=== PATIENT | male | born 1955 | race Caucasian/White ===

== ENCOUNTER 2018-10-09 06:31 | Observation (INO) | payer SELFPAY ==
[2018-10-09 06:58] LABS: Absolute Lymphocytes (CBC) 1.7 K/uL (0.7-4.9); Absolute Monocytes 1.4 K/uL (0.1-1.3); Absolute Neutrophil 13.9 K/uL (1.8-8.0); Basophils % 0.2 % (0-1.3); Eosinophils % 0.3 % (0-4.4); Lymphocytes % 9.8 % (15.3-44.8); MPV 10.3 fL (7.6-11.3); RBC Red Blood Cell Count 2.74 M/uL (4.33-5.43)
[2018-10-09 06:59] LABS: Protime INR 1.1
[2018-10-09] MEDS ORDERED: NA CHLORIDE 0.9% 1,000 ML ONE (07:16)
[2018-10-09 07:18] LABS: ALT/SGPT 14 U/L (12-78); AST/SGOT 23 U/L (15-37); Albumin 2.6 g/dL (3.4-5.0); Alkaline Phosphatase 88 U/L (45-117); BUN Blood Urea Nitrogen 21 mg/dL (7-18); Bicarbonate 25 mmol/L (21-32); Bilirubin Direct < 0.1 mg/dL (0-0.2); Bilirubin Total 0.1 mg/dL (0.2-1.0); Glucose Level 118 mg/dL (74-106); NT PRO-BNP 373 pg/mL (<125); Potassium 3.7 mmol/L (3.5-5.1); Protein, Total 5.7 g/dL (6.4-8.2); Sodium Level 142 mmol/L (136-145)
[2018-10-09 07:20] LABS: Troponin (Emerg Dept Use Only) 0.96 ng/mL (0.0-0.045)
--- NOTE | 2018-10-09 08:04 | EKG ---
Test Date: 2018-10-09 Test Time: 06:51:34 Highway Maintenance Technician: [id number] MEASUREMENT RESULTS: Intervals: Rate: 69 MI: 122 QRSD: 92 QT: 438 QTc: 469 [place]: P: 74 MI: 122 QRS: 81 T: -45 INTERPRETIVE STATEMENTS: Normal sinus rhythm Marked ST depression consider subendocardial injury Minimal voltage for left ventricular hypertrophy Abnormal ECG Compared to ECG 10/27/2015 10:28:06 ST depression is now present Sinus bradycardia no longer present Electronically Signed On 10-09-18 08:04:04 CDT by Wero Sweeney
--- NOTE | 2018-10-09 08:11 | EDPHYS ---
Physician Documentation [facility] Name: Blue Almazan Age: 62 yrs Sex: Male : 1955 Arrival Date: 10/09/2018 Time: 06:35 Bed 4 Private MD: ED Physician Jak Tapia HPI: 10/09 07:06 This 62 yrs old Male presents to ER via EMS with complaints of weakness . kb 07:06 The patient presents with generalized weakness. Onset: The symptoms/episode kb began/occurred 1 week(s) ago. Context: occurred at home. Modifying factors: The symptoms are alleviated by nothing, the symptoms are aggravated by standing up, changing position. Associated signs and symptoms: Pertinent positives: headache, nausea. Severity of symptoms: At their worst the symptoms were moderate in the emergency department the symptoms are unchanged. Patient's baseline: Neuro: alert and fully oriented, Motor: no deficits, Ambulation: walks without assistance, Speech: normal. The patient has experienced similar episodes in the past, a few times. The patient has not recently seen a physician. Pt reports weakness with intermittent dizziness for a week. Went to work this morning and didn't feel like he could do it today so he drove back home and called 911. Reports history of anemia and blood transfusions in the past. Denies bleeding. Historical: - Allergies: 06:40 Ibuprofen; fc - Home Meds: 06:40 Methadone 100 mg Oral once daily [Active]; fc - PMHx: 06:40 Anemia; drug addiction; fc - PSHx: 06:40 None; fc - Immunization history:: Last tetanus immunization: unknown. - Social history:: Smoking status: Patient uses tobacco products, smokes one pack cigarettes per day. Patient/guardian denies using alcohol, street drugs. - Ebola Screening: : Patient negative for fever greater than or equal to 101.5 degrees Fahrenheit, and additional compatible Ebola Virus Disease symptoms Patient denies exposure to infectious person Patient denies travel to an Ebola-affected area in the 21 days before illness onset. ROS: 07:11 Constitutional: Negative for fever, chills, and weight loss, ENT: Negative for injury, kb pain, and discharge, Neck: Negative for injury, pain, and swelling, Respiratory: Negative for shortness of breath, cough, wheezing, and pleuritic chest pain, Back: Negative for injury and pain, MS/Extremity: Negative for injury and deformity, Skin: Negative for injury, rash, and discoloration. 07:11 Cardiovascular: Positive for chest pain, Negative for edema, orthopnea, palpitations, paroxysmal nocturnal dyspnea. 07:11 Abdomen/GI: Positive for nausea. 07:11 Neuro: Positive for dizziness, headache, weakness. Exam: 07:08 Head/Face: Normocephalic, atraumatic. ENT: Nares patent. No nasal discharge, no kb septal abnormalities noted. Tympanic membranes are normal and external auditory canals are clear. Oropharynx with no redness, swelling, or masses, exudates, or evidence of obstruction, uvula midline. Mucous membranes moist. Neck: Trachea midline, no thyromegaly or masses palpated, and no cervical lymphadenopathy. Supple, full range of motion without nuchal rigidity, or vertebral point tenderness. No Meningismus. Chest/axilla: Normal chest wall appearance and motion. Nontender with no deformity. No lesions are appreciated. Cardiovascular: Regular rate and rhythm with a normal S1 and S2. No gallops, murmurs, or rubs. Normal PMI, no JVD. No pulse deficits. Respiratory: Lungs have equal breath sounds bilaterally, clear to auscultation and percussion. No rales, rhonchi or wheezes noted. No increased work of breathing, no retractions or nasal flaring. Abdomen/GI: Soft, non-tender, with normal bowel sounds. No distension or tympany. No guarding or rebound. No evidence of tenderness throughout. Skin: Warm, dry with normal turgor. Normal color with no rashes, no lesions, and no evidence of cellulitis. MS/ Extremity: Pulses equal, no cyanosis. Neurovascular intact. Full, normal range of motion. Neuro: Awake and alert, GCS 15, oriented to person, place, time, and situation. Cranial nerves II-XII grossly intact. Motor strength 5/5 in all extremities. Sensory grossly intact. Cerebellar exam normal. Normal gait. 07:08 Constitutional: The patient appears alert, awake, pale. 07:08 ECG was reviewed by the Attending Physician. 07:43 Abdomen/GI: Rectal exam: rectal tone normal, Stool: guaiac positive, black, the exam is kb chaperoned by the nurse. Vital Signs: 06:30 BP 141 / 80; Pulse 81; Resp 18; Temp 98.1; Pulse Ox 100% ; Weight 72.57 kg; Height 5 fc ft. 8 in. (172.72 cm); Pain 4/10; 06:42 BP 144 / 67 Supine; Pulse 68; aa1 06:44 BP 155 / 109 Sitting; Pulse 68; aa1 06:46 BP 115 / 89 Standing; Pulse 78; aa1 07:30 BP 128 / 70; Pulse 68; Resp 15; Pulse Ox 100% on R/A; Pain 0/10; hb 08:00 BP 132 / 72; Pulse 70; Resp 16; Temp 98.4; Pulse Ox 100% on R/A; hb 09:00 BP 130 / 70; Pulse 71; Resp 15; Pulse Ox 100% on R/A; hb 10:00 BP 132 / 71; Pulse 68; Resp 15; Pulse Ox 100% on R/A; hb 06:30 Body Mass Index 24.33 (72.57 kg, 172.72 cm) fc MDM: 06:35 Patient medically screened. kb 07:08 Data reviewed: vital signs, nurses notes. Data interpreted: Pulse oximetry: on room air kb is 100 %. Interpretation: normal. 07:57 Counseling: I had a detailed discussion with the patient and/or guardian regarding: the kb historical points, exam findings, and any diagnostic results supporting the discharge/admit diagnosis, lab results, radiology results, the need to transfer to another facility, [facility] does not immediately have the required specialist. ED course: Transfer initiated to [facility] for GI bleed, no GI available at this facility. . 08:05 Physician consultation: Sondra Lao MD was contacted at 08:10, regarding admission, to the telemetry unit. patient's condition, and will see patient in ED, shortly. ED course: Pt refuses transfer. Pt educated that he needs to be seen by GI specialist for the bleeding. Educated that weakness, dizziness, and chest pain is all related to the GI bleeding. Pt understands and says he will follow up with Dr Schaffer, but he does not want to be transferred and he understands that he will not be seen by GI during admission. PT states "I have been losing blood for a long time. I get blood and that lasts for a year or two so I'm good. Can I just get the blood?" Discussed pt condition with Dr Lao. Agrees to admit pt for observation for transfusion and cardiac consult for elevated troponin and ekg changes. . 08:10 Physician consultation: Wero Sweeney MD in the emergency department to see patient at kb 08:10. 10/09 06:36 Order name: Basic Metabolic Panel; Complete Time: 07:22 kb 10/09 06:36 Order name: CBC with Diff; Complete Time: 07:03 kb 10/09 06:36 Order name: LFT's; Complete Time: 07:22 kb 10/09 06:36 Order name: Magnesium; Complete Time: 07:22 kb 10/09 06:36 Order name: NT PRO-BNP; Complete Time: 07:22 kb 10/09 06:36 Order name: PT-INR; Complete Time: 07:03 kb 10/09 06:36 Order name: Troponin (emerg Dept Use Only); Complete Time: 07:22 kb 10/09 06:36 Order name: XRAY Chest (1 view); Complete Time: 08:31 kb 10/09 06:36 Order name: EKG; Complete Time: 06:36 kb 10/09 06:36 Order name: Type And Screen kb 10/09 07:14 Order name: Bb Add On fc 10/09 07:15 Order name: Packed RBC Leukored -1 EDAK 10/09 06:36 Order name: Cardiac monitoring; Complete Time: 06:52 kb 10/09 06:36 Order name: EKG - Nurse/Tech; Complete Time: 06:52 kb 10/09 06:36 Order name: IV Saline Lock; Complete Time: 06:52 kb 10/09 06:36 Order name: Labs collected and sent; Complete Time: 06:52 kb 10/09 06:36 Order name: O2 Per Protocol; Complete Time: 06:52 kb 10/09 06:36 Order name: O2 Sat Monitoring; Complete Time: 06:53 kb 10/09 06:36 Order name: Orthostatics; Complete Time: 06:52 kb EC:08 Rate is 69 beats/min. Rhythm is regular, Normal Sinus Rhythm. QRS Union is Normal. MT kb interval is normal at 122 msec. QRS interval is normal at 92 msec. QT interval is normal at 438 msec. Administered Medications: 07:07 Drug: NS 0.9% 1000 ml Route: IV; Rate: 1000 ml; Site: left antecubital; hb 08:15 Follow up: Response: No adverse reaction; IV Status: Completed infusion; IV Intake: hb 1000ml 09:30 Drug: Nicotine 21 mg/24 hr 1 patches Route: Transdermal; Site: affected area; hb 10:30 Follow up: Response: No adverse reaction hb Disposition: 10/10 11:16 Co-signature as Attending Physician, Jak Tapia MD I agree with the assessment and [facility] plan of care. Disposition: 10/09/18 08:11 Hospitalization ordered by Sondra Lao for Observation. Preliminary diagnosis are Anemia, unspecified, Gastrointestinal hemorrhage, unspecified, Chest pain, unspecified, Elevated Troponin. - Bed requested for Telemetry/MedSurg (observation). - Status is Observation. hb - Condition is Stable. - Problem is new. - Symptoms are unchanged. UTI on Admission? No Signatures: Dispatcher [employer] EDMS Mariam Astudillo FNP-C FNP-Ckb Woody, Diana, RN RN dw Anderson, Corey, MD MD cha Chretien, Felicia, RN RN Asya Spring RN RN hb Corrections: (The following items were deleted from the chart) 10/09 07:16 07:06 Pt reports weakness with intermittent dizziness for a week. Went to work this [employer] morning and didn't feel like he could do it today so he drove back home and called 911. kb 07:16 07:06 Pt reports weakness with intermittent dizziness for a week. Went to work this [employer] morning and didn't feel like he could do it today so he drove back home and called 911. Reports history of anemia and blood transfusions in the past. kb 08:32 07:08 Rate is 69 beats/min. Rhythm is regular, Normal Sinus Rhythm. QRS Union is Normal. kb MT interval is normal at 122 msec. QRS interval is normal at 92 msec. QT interval is normal at 438 msec. kb 09:14 08:11 Hospitalization Ordered by Sondra Lao MD for Observation. Preliminary diagnosis dw is Anemia, unspecified; Gastrointestinal hemorrhage, unspecified; Chest pain, unspecified; Elevated Troponin. Bed requested for Telemetry/MedSurg (observation). Status is Observation. Condition is Stable. Problem is new. Symptoms are unchanged. UTI on Admission? No. kb 11:39 09:14 10/09/2018 08:11 Hospitalization Ordered by Sondra Lao MD for Observation. hb Preliminary diagnosis is Anemia, unspecified; Gastrointestinal hemorrhage, unspecified; Chest pain, unspecified; Elevated Troponin. Bed requested for Telemetry/MedSurg (observation). Status is Observation. Condition is Stable. Problem is new. Symptoms are unchanged. UTI on Admission? No. dw
--- NOTE | 2018-10-09 08:11 | ER ---
Nurse's Notes [facility] Name: Blue Almazan Age: 62 yrs Sex: Male : 1955 Arrival Date: 10/09/2018 Time: 06:35 Bed 4 Private MD: Diagnosis: Anemia, unspecified;Gastrointestinal hemorrhage, unspecified;Chest pain, unspecified;Elevated Troponin Presentation: 10/09 06:30 Presenting complaint: Patient states: that he has been having weakness on and off x 1 fc week. When he is weak he has nausea, dizziness and pounding in his head. Transition of care: patient was not received from another setting of care. Onset of symptoms was October 02, 2018. Risk Assessment: Do you want to hurt yourself or someone else? Patient reports no desire to harm self or others. Initial Sepsis Screen: Does the patient meet any 2 criteria? No. Patient's initial sepsis screen is negative. Does the patient have a suspected source of infection? No. Patient's initial sepsis screen is negative. Care prior to arrival: IV initiated. 20 GA, in the left antecubital area, Glucose check: 119. 06:30 Method Of Arrival: EMS: [facility] 06:30 Acuity: JAMMIE 3 fc Historical: - Allergies: 06:40 Ibuprofen; fc - Home Meds: 06:40 Methadone 100 mg Oral once daily [Active]; fc - PMHx: 06:40 Anemia; drug addiction; fc - PSHx: 06:40 None; fc - Immunization history:: Last tetanus immunization: unknown. - Social history:: Smoking status: Patient uses tobacco products, smokes one pack cigarettes per day. Patient/guardian denies using alcohol, street drugs. - Ebola Screening: : Patient negative for fever greater than or equal to 101.5 degrees Fahrenheit, and additional compatible Ebola Virus Disease symptoms Patient denies exposure to infectious person Patient denies travel to an Ebola-affected area in the 21 days before illness onset. Screenin:30 Abuse screen: Denies threats or abuse. Nutritional screening: No deficits noted. fc Tuberculosis screening: No symptoms or risk factors identified. Fall Risk None identified. Assessment: 06:35 General: Appears in no apparent distress. comfortable, slender, Behavior is calm, aa1 cooperative, appropriate for age, drowsy. Pain: Denies pain. Neuro: Level of Consciousness is awake, obeys commands, Oriented to person, place, time, situation, Moves all extremities. Full function Speech is normal, Facial symmetry appears normal, Pupils are PERRLA. Neuro: Reports weakness that is generalized. Cardiovascular: Heart tones S1 S2 present Rhythm is regular. Respiratory: Airway is patent Respiratory effort is even, unlabored, Respiratory pattern is regular, symmetrical. GI: No signs and/or symptoms were reported involving the gastrointestinal system. : No signs and/or symptoms were reported regarding the genitourinary system. EENT: No signs and/or symptoms were reported regarding the EENT system. Derm: Skin is intact, is healthy with good turgor, Skin is pink, warm \T\ dry. Musculoskeletal: Circulation, motion, and sensation intact. Capillary refill < 3 seconds. 07:08 Reassessment: Patient appears in no apparent distress at this time. Patient and/or hb family updated on plan of care and expected duration. Pain level reassessed. Pt is lethargic, answering questions appropriately. Denies pain/SOB. VSS. Awaiting lab results at this time. 09:30 Reassessment: FIRST UNIT PRBCS STARTED, VSS, NAD. SEE PAPER CHART FOR TRANSFUSION hb RECORD. 10:00 Reassessment: BLOOD INFUSION CONTINUES, PT DENIES SOB/PAIN/ITCHING. VSS. hb 10:25 Reassessment: REPORT CALLED TO FLOOR, AWAITING TRANSPORT AT THIS TIME. hb Vital Signs: 06:30 BP 141 / 80; Pulse 81; Resp 18; Temp 98.1; Pulse Ox 100% ; Weight 72.57 kg; Height 5 fc ft. 8 in. (172.72 cm); Pain 4/10; 06:42 BP 144 / 67 Supine; Pulse 68; aa1 06:44 BP 155 / 109 Sitting; Pulse 68; aa1 06:46 BP 115 / 89 Standing; Pulse 78; aa1 07:30 BP 128 / 70; Pulse 68; Resp 15; Pulse Ox 100% on R/A; Pain 0/10; hb 08:00 BP 132 / 72; Pulse 70; Resp 16; Temp 98.4; Pulse Ox 100% on R/A; hb 09:00 BP 130 / 70; Pulse 71; Resp 15; Pulse Ox 100% on R/A; hb 10:00 BP 132 / 71; Pulse 68; Resp 15; Pulse Ox 100% on R/A; hb 06:30 Body Mass Index 24.33 (72.57 kg, 172.72 cm) fc ED Course: 06:30 Arm band placed on Patient placed in an exam room, on a stretcher. fc 06:30 Patient has correct armband on for positive identification. Placed in gown. Bed in low fc position. Call light in reach. Side rails up X2. manager monitoring on. Pulse ox on. NIBP on. 06:30 No provider procedures requiring assistance completed. Maintain EMS IV. Dressing fc intact. Good blood return noted. Site clean \T\ dry. Gauge \T\ site: 20 gauge to left a/c. 06:35 Patient arrived in ED. kb 06:35 Mariam Astudillo FNP-C [facility]. kb 06:35 Jak Tapia MD is Attending Physician. kb 06:38 Triage completed. fc 06:40 Initial lab(s) drawn, by me, sent to lab. T\T\S collected, blood band applied to patient. aa1 07:06 Asya Bradley, EDUARDO is Primary Nurse. hb 07:17 XRAY Chest (1 view) In Process Unspecified. EDMS 08:11 Sondra Lao MD is Hospitalizing Provider. kb 11:15 Patient admitted, IV remains in place. hb Administered Medications: 07:07 Drug: NS 0.9% 1000 ml Route: IV; Rate: 1000 ml; Site: left antecubital; hb 08:15 Follow up: Response: No adverse reaction; IV Status: Completed infusion; IV Intake: hb 1000ml 09:30 Drug: Nicotine 21 mg/24 hr 1 patches Route: Transdermal; Site: affected area; hb 10:30 Follow up: Response: No adverse reaction hb Intake: 08:15 IV: 1000ml; Total: 1000ml. hb Outcome: 08:11 Decision to Hospitalize by Provider. kb 11:15 Admitted to Med/surg accompanied by nurse, via wheelchair, room 229, with chart. hb 11:15 Condition: stable 11:15 Instructed on the need for admit, Demonstrated understanding of instructions. 11:39 Patient left the ED. hb Signatures: Dispatcher [employer] EDMS Mariam Astudillo FNP-C FNP-Ckb Autenrieth, Alissa, RN RN aa1 Evonne Kothari, RN RN fc Asya Bradley, RN RN hb
--- NOTE | 2018-10-09 08:27 | RAD REPORT ---
EXAM DESCRIPTION: RAD - Chest Single View - 10/09/2018 7:17 am CLINICAL HISTORY: CHEST PAIN Chest pain. COMPARISON: CHEST SINGLE VIEW dated 07/19/2012; CHEST SINGLE VIEW dated 05/07/2008; CHEST SINGLE VIEW dated 12/16/2004 FINDINGS: Portable technique limits examination quality. The lungs are emphysematous but grossly clear. The heart is upper limit of normal in size. No displac ed fractures. IMPRESSION: COPD.
--- NOTE | 2018-10-09 09:07 | P.HP ---
Certification for Inpatient Patient admitted to: Observation With expected LOS: <2 Midnights Practitioner: I am a practitioner with admitting privileges, knowledge of patient current condition, hospital course, and medical plan of care. Services: Services provided to patient in accordance with Admission requirements found in Title 42 Section 412.3 of the Code of Federal Regulations Patient History Date of Service: 10/09/18 Reason for admission: weakness History of Present Illness: This is a 62-year-old male with history of opiate addiction, peptic ulcer disease for many years, current smoker admitted for generalized weakness. Per patient, starting this morning around 430 when he was getting ready for work, he was feeling very weak, dizzy and intermittently short of breath. He started driving to work to a 10 but did not feel well and therefore drove himself to the ER. He endorses dizziness, intermittent shortness of breath. He denies any chest pain, headache, vision changes, hematochezia, hematuria, or active bleeding anywhere else. He states that his mother has similar issue, was found to have some cancer inside her stomach. He is not sure of any more details in regards to this. He was previously seen in 2013 for same exact set of symptoms. He was evaluated by GI at that time and was recommended a EGD and colonoscopy. He states he has not followed up and has not had a recent EGD or colonoscopy. In the ER, patient was alert oriented x3, in no acute distress and was hemodynamically stable. He was found to have a hemoglobin of 6, and troponin elevated. His stool occult was positive. 2 units of PRBCs were ordered, pending at the time of my exam. At the time of my exam, he was alert oriented x3, in no acute distress and hemodynamically stable. He was admitted for acute blood loss anemia, GI bleed. Patient was recommended to be transferred to [facility] for a GI evaluation as we do not have GI on-call today. Patient refused stating that he would rather go home. He was admitted for blood transfusion and a cardiac consultation at this time. Allergies ibuprofen Allergy (Unverified 10/27/15 12:16) Unknown Home Medications: Methadone HCl [Methadone HCl*] 100 mg PO DAILY 07/19/12 Amlodipine [Norvasc*] 10 mg PO DAILY #0 tab 07/23/12 Triamterene/Hctz [Maxzide 37.5 mg-25 mg Tablet*] 1 each PO DAILY #0 tablet 07/23 - Past Medical/Surgical History Diabetic: No -: Opioid addiction -: Previous history of anemia - Family History Mother -: Cancer (GI, unsure of details) - Social History Smoking Status: Current every day smoker Smoking therapy provided: Yes (Nicotine patch) Patient receptive to therapy: No Alcohol use: No CD- Drugs: No Caffeine use: No Review of Systems 10-point ROS is otherwise unremarkable Physical Examination - Physical Exam General: Alert, In no apparent distress, Oriented x3 HEENT: Atraumatic, PERRLA, Mucous membr. moist/pink, EOMI, Sclerae nonicteric Neck: Supple, 2+ carotid pulse no bruit, No LAD, Without JVD or thyroid abnormality Respiratory: Clear to auscultation bilaterally, Normal air movement Cardiovascular: Regular rate/rhythm, Normal S1 S2 Gastrointestinal: Normal bowel sounds, No tenderness, Other (FOBT positive) Musculoskeletal: No tenderness Integumentary: No rashes Neurological: Normal gait, Normal speech, Normal strength at 5/5 x4 extr, Normal tone, Normal affect Lymphatics: No axilla or inguinal lymphadenopathy - Studies Laboratory Data (last 24 hrs) 10/09/18 06:40: PT 12.9 H, INR 1.10 10/09/18 06:40: WBC 17.0 H, Hgb 6.0 L*, Hct 20.0 L*, Plt Count 258 10/09/18 06:40: Sodium 142, Potassium 3.7, BUN 21 H, Creatinine 0.71, Glucose 118 H, Magnesium 2.0, Total Bilirubin 0.1 L, AST 23, ALT 14, Alkaline Phosphatase 88 Assessment and Plan - Problems (Diagnosis) (1) Acute blood loss anemia Current Visit: Yes Status: Acute Plan: 2 units PRBS ordered in ED, pending - 2 hr post transfusion HH recheck (2) Symptomatic anemia Current Visit: Yes Status: Acute (3) GI bleed Current Visit: Yes Status: Acute Plan: - Stool occult positive, Hx of similar episode in the past. - Patient refuses to be transferred to Wing for GI evaluation. He understands the risks of refusing this transfer. - He will need outpatient GI follow up, discussed the importance of this. Qualifiers: GI bleed type/associated pathology: unspecified gastrointestinal hemorrhage type Qualified Code(s): K92.2 - Gastrointestinal hemorrhage, unspecified (4) Elevated troponin Current Visit: Yes Status: Acute Plan: Likely secondary to Demand mismatch - Denies any chest pain at this time - Cardiology consulted, pt evaluated in ED - Trend troponins (5) Family history of GI tract cancer Current Visit: Yes Status: Acute Plan: Mother with unspecified history of GI cancer, pt unaware of further details. Discussed importance with compliance of outpatient GI (6) Current smoker Current Visit: Yes Status: Chronic Plan: Counseled on smoking cessation, 5 minutes - Nicotine patch ordered (7) Opioid abuse Current Visit: No Status: Chronic Plan: Currently on methadone, does goes to methadone clinic. He will have continued follow up upon discharge - Plan DVT prophylaxis: SCD, hold chemical AC due to GIB GI prophylaxis: Protonix, IV Diet: Heart Healthy Disposition: Patient admitted for blood transfusion, patient refused transfer to Wing for GI evaluation (No GI section maintainer today). He understand the risks and states he will follow up outpatient. Pending transfusion and post transfusion H&H check - Advance Directives Does patient have a Living Will: No Does patient have a Durable POA for Healthcare: No Time Spent Managing Pts Care (In Minutes): 55
[2018-10-09] MEDS ORDERED: NA CHLORIDE 0.9% 250 ML ONE ×2 (09:21→13:19)
[2018-10-09] MEDS ORDERED: NICOTINE 21 MG/PAT TD ONE (09:24)
[2018-10-09 12:07] VITALS: BMI 23.6
--- NOTE | 2018-10-09 14:04 | ECHO ---
HEIGHT: 5 ft 8 in WEIGHT: 155 lb 0 oz DATE OF STUDY: 10/09/[address]: Wero Sweeney MD 2-DIMENSIONAL: YES M.MODE: YES DOPPLER: YES COLOR FLOW: YES TDS: NO PORTABLE: NO DEFINITY: NO BUBBLE STUDY: NO DIAGNOSIS: ABNORMAL TROPONIN CARDIAC HISTORY: CATHERIZATION: NO SURGERY: NO PROSTHETIC VALVE: NO PACEMAKER: NO MEASUREMENTS (cm) DIASTOLIC (NORMALS) SYSTOLIC (NORMALS) IVSd 0.9 (0.6-1.2) LA Diam 3.5 (1.9-4.0) LVEF 78% LVIDd 4.8 (3.5-5.7) LVIDs 2.6 (2.0-3.5) %FS 46% LVPWd 1.0 (0.6-1.2) Ao Diam 2.9 (2.0-3.7) 2 DIMENSIONAL ASSESSMENT: RIGHT ATRIUM: NORMAL LEFT ATRIUM: NORMAL RIGHT VENTRICLE: NORMAL LEFT VENTRICLE: NORMAL TRICUSPID VALVE: NORMAL MITRAL VALVE: NORMAL PULMONIC VALVE: NORMAL AORTIC VALVE: NORMAL PERICARDIAL EFFUSION: NONE AORTIC ROOT: NORMAL LEFT VENTRICULAR WALL MOTION: NORMAL. DOPPLER/COLOR FLOW: TRACE OF TRICUSPID REGURGITATION. MILD PULMONARY HYPERTENSION. ESTIMATED RIGHT VENTRICULAR SYSTOLIC PRESSURE 45mmHg. COMMENTS: NORMAL 2D ECHO. TRACE OF TRICUSPID REGURGITATION. MILD PULMONARY HYPERTENSION. TECHNOLOGIST: PANCHO MARTIN
[2018-10-09] MEDS ORDERED: ACETAMINOPHEN 500 MG TAB PO STA (14:11)
[2018-10-09] MEDS ORDERED: METHADONE HCL 40 MG DISPERSIBLE TAB PO ONE (15:00)
[2018-10-09] MEDS ORDERED: METHADONE HCL 10 MG TAB PO ONE (15:00)
--- NOTE | 2018-10-09 15:54 | CON ---
History Of Present Illness: Mr. Almazan is 62, came to the hospital because of weakness. He is found to have a hemoglobin of 6. This was happened to him in the past. He has had extensive GI workups. No source of bleeding is seen, but the patient seems to drop out of followup. He is not on any of th e usual supplemental therapy for somebody with chronic bleeding. I was called because his troponins are abnormal and he has marked changes in his EKG. The patient has had evaluation of his heart befor e. He has never had a heart catheterization or stent. He is a tobacco user. He is not having chest pain, but his EKG showed extensive ST depression consistent with subendocardial injury on a backgrou nd of left ventricular hypertrophy. I do not think we have any list of outpatient medicines. Physical Examination: Vital Signs: Blood pressure 141/80, pulse 80, temperature 98.1, body mass index 24.33. General: He has an overall pale appearance. He appears to be older than his stated age. Lungs: Clear. Cardiac: Exam is normal. Imaging: EKG reveals diffuse ST abnormalities consistent with subendocardial injury. Impression: The patient needs transfusion. We can do an echocardiogram and see if there is any evid ence of actual myocardial injury. If we call this an IL, it would be a type 2 IL where it is mostly a supply problem more than a demand problem. At some point when his hemoglobin is good, it might be good to do a nuclear stress test and see how much underlying CAD he might have. This is not an acute coronary occlusion. EKATERINA/MEDINA Voice ID: [id number] Report ID: [id number]
[2018-10-09 18:41] LABS: Urine Appearance CLEAR; Urine Bilirubin NEGATIVE (NEG); Urine Blood NEGATIVE (NEG); Urine Color YELLOW; Urine Glucose NEGATIVE (NEG); Urine Protein NEGATIVE (NEG); Urine Specific Gravity 1.015 (1.005-1.030); Urine Urobilinogen 0.2 mg/dL (0.2-1.0); Urine pH 5.5 (5.0-7.0)
[2018-10-09 18:55] LABS: Urine Microscopic Reflex NO UMIC
[2018-10-09 21:26] VITALS: O2SAT 95
[2018-10-09 22:59] VITALS: BP 128/67; TEMP 97.7
[2018-10-10] MEDS ORDERED: NICOTINE 21 MG/PAT TD SCH (09:00)
[2018-10-10] MEDS ORDERED: METHADONE HCL 10 MG TAB PO ONE (15:00)
== END 2018-10-09 23:50 | disposition left against medical advice (07) ==
LOC: ER 06:31 → ERHOLD 08:55 → 2ND 10:22
PROVIDERS: ADMIT Family Medicine; ATTEND Family Medicine
DX: D62 Acute posthemorrhagic anemia (principal); K92.2 Gastrointestinal hemorrhage, unspecified; R79.89 Other specified abnormal findings of blood chemistry; F17.210 Nicotine dependence, cigarettes, uncomplicated; Z53.21 Procedure and treatment not carried out due to patient leaving prior to being seen by health care provider; Z80.0 Family history of malignant neoplasm of digestive organs; F11.10 Opioid abuse, uncomplicated
CPT/HCPCS: 36415; 71045; 80048; 80076; 81003; 83735; 83880; 84484; 85014; 85018; 85025; 85610; 86850; 86900; 86901; 87086; 87088; 93005; 93306; 94760; 96360; 99285; G0378; J7030; P9016

== ENCOUNTER 2018-10-10 00:39 | Emergency (ER) | payer SELFPAY ==
[2018-10-10 01:35] LABS: Absolute Lymphocytes (CBC) 1.6 K/uL (0.7-4.9); Absolute Monocytes 1.4 K/uL (0.1-1.3); Absolute Neutrophil 11.6 K/uL (1.8-8.0); Basophils % 0.3 % (0-1.3); Hematocrit 24.3 % (39.6-49.0); Lymphocytes % 10.6 % (15.3-44.8); MPV 10.5 fL (7.6-11.3); Monocytes % 9.7 % (3.3-12.3); RBC Red Blood Cell Count 3.16 M/uL (4.33-5.43)
[2018-10-10 01:52] LABS: ALT/SGPT 30 U/L (12-78); AST/SGOT 171 U/L (15-37); Albumin 2.7 g/dL (3.4-5.0); Alkaline Phosphatase 87 U/L (45-117); BUN Blood Urea Nitrogen 10 mg/dL (7-18); Bicarbonate 23 mmol/L (21-32); Bilirubin Total 0.3 mg/dL (0.2-1.0); Glucose Level 104 mg/dL (74-106); Potassium 3.8 mmol/L (3.5-5.1); Sodium Level 142 mmol/L (136-145)
--- NOTE | 2018-10-10 01:53 | EDPHYS ---
Physician Documentation [facility] Name: Blue Almazan Age: 62 yrs Sex: Male : 1955 Arrival Date: 10/10/2018 Time: 00:41 Bed 5 Private MD: ED Physician Teodoro Lambert HPI: 10/10 04:40 This 62 yrs old Male presents to ER via Wheelchair with complaints of tw4 Weakness. 04:40 The patient presents to the emergency department with weakness of the entire body, tw4 generalized weakness. Onset: The symptoms/episode began/occurred just prior to arrival. Context: occurred outdoors, occurred while the patient was walking. Associated signs and symptoms: The patient has no apparent associated signs or symptoms. Severity of symptoms: At their worst the symptoms were very mild. Patient's baseline: Neuro: alert and fully oriented, Motor: no deficits. Current symptoms: Currently, the patient is not experiencing any symptoms. The patient has experienced similar episodes in the past. The patient has been recently been admitted at [facility], was discharged earlier today, pt left AMA rimma. Historical: - Allergies: 00:47 Ibuprofen; lp1 00:50 Tylenol; lp1 - Home Meds: 00:47 Methadone 100 mg Oral once daily [Active]; lp1 - PMHx: 00:47 Anemia; DRUG ADDICTION; lp1 - PSHx: 00:50 None; lp1 - Immunization history:: Adult Immunizations unknown. - Social history:: Smoking status: Patient uses tobacco products, smokes one pack cigarettes per day. - Ebola Screening: : No symptoms or risks identified at this time. ROS: 04:40 Constitutional: Negative for fever, chills, and weight loss, Eyes: Negative for injury, tw4 pain, redness, and discharge, Cardiovascular: Negative for chest pain, palpitations, and edema, Respiratory: Negative for shortness of breath, cough, wheezing, and pleuritic chest pain, Abdomen/GI: Negative for abdominal pain, nausea, vomiting, diarrhea, and constipation, Back: Negative for injury and pain, MS/Extremity: Negative for injury and deformity, Skin: Negative for injury, rash, and discoloration. 04:40 Neuro: Positive for weakness, Negative for altered mental status, dizziness, gait disturbance, headache, hearing loss, speech changes, syncope, near syncope, tingling, tinnitus, tremor, visual changes. Exam: 04:40 Constitutional: This is a well developed, well nourished patient who is awake, alert, tw4 and in no acute distress. Head/Face: Normocephalic, atraumatic. Chest/axilla: Normal chest wall appearance and motion. Nontender with no deformity. No lesions are appreciated. Cardiovascular: Regular rate and rhythm with a normal S1 and S2. No gallops, murmurs, or rubs. Normal PMI, no JVD. No pulse deficits. Respiratory: Lungs have equal breath sounds bilaterally, clear to auscultation and percussion. No rales, rhonchi or wheezes noted. No increased work of breathing, no retractions or nasal flaring. Abdomen/GI: Soft, non-tender, with normal bowel sounds. No distension or tympany. No guarding or rebound. No evidence of tenderness throughout. Back: No spinal tenderness. No costovertebral tenderness. Full range of motion. MS/ Extremity: Pulses equal, no cyanosis. Neurovascular intact. Full, normal range of motion. Neuro: Awake and alert, GCS 15, oriented to person, place, time, and situation. Cranial nerves II-XII grossly intact. Motor strength 5/5 in all extremities. Sensory grossly intact. Cerebellar exam normal. Normal gait. Vital Signs: 00:48 BP 159 / 66; Pulse 69; Resp 18; Temp 99(O); Pulse Ox 100% on R/A; Weight 68.04 kg; lp1 Height 5 ft. 8 in. (172.72 cm); Pain 0/10; 01:30 BP 143 / 74; Pulse 63; Resp 14; Pulse Ox 99% on R/A; tl2 02:32 BP 152 / 82; Pulse 72; Resp 18; Pulse Ox 99% on R/A; tl2 04:43 BP 137 / 87; Pulse 70; Resp 18; Pulse Ox 100% on R/A; tl2 00:48 Body Mass Index 22.81 (68.04 kg, 172.72 cm) lp1 MDM: 00:57 Patient medically screened. tw4 04:40 Data reviewed: vital signs, nurses notes, old medical records, lab test result(s). Data tw4 interpreted: Pulse oximetry: Interpretation: normal. Counseling: I had a detailed discussion with the patient and/or guardian regarding: the historical points, exam findings, and any diagnostic results supporting the discharge/admit diagnosis. ED course: Pt will need to be transferred as we lack GI coverage. P was seen and evaluated by Cardiology and it was felt that pt had demand ischemia. Pt received 2U PRBC. Pt only underwent echocardiogram and did not have a catherization. 10/10 00:59 Order name: CBC with Diff tw4 10/10 00:59 Order name: CMP tw4 10/10 03:21 Order name: Troponin (emerg Dept Use Only); Complete Time: 04:13 tw4 10/10 03:21 Order name: Ckmb tw4 10/10 03:26 Order name: CBC Smear Scan EDMS 10/10 01:15 Order name: IV Start; Complete Time: 01:15 tl2 10/10 03:21 Order name: EKG; Complete Time: 03:21 tw4 EC:40 Rate is 63 beats/min. Rhythm is regular. QRS [place] is Normal. AL interval is normal. QRS tw4 interval is normal. QT interval is normal. No Q waves. T waves are Normal. ST Segment is depressed in leads V4, V5, V6, 1-2mm. Clinical impression: Cardiac ischemia. Interpreted by me. Reviewed by me. Administered Medications: 03:39 Drug: Nicoderm CQ 21 mg/24 hr 1 patches {Note: left deltoid.} Route: Transdermal; Site: tl2 affected area; 05:30 Follow up: Response: No adverse reaction tl2 04:43 Drug: ProTONIX 8 mg/hr Route: IV; Rate: 25 ml/hr; Site: left antecubital; tl2 05:29 Follow up: IV Status: Infusion continued upon transfer tl2 Disposition: 10/10/18 04:33 Transfer ordered to [facility]. Diagnosis are Anemia, Non-ST elevation (NSTEMI) myocardial infarction. - Reason for transfer: Higher level of care. - Accepting physician is Dr Lawson. - Condition is Stable. - Problem is an ongoing problem. - Symptoms are unchanged. Signatures: Dispatcher [employer] EDMS Nereyda Choudhary RN RN lp1 Cara Luis RN RN tl2 Teodoro Lambert MD MD tw4 Corrections: (The following items were deleted from the chart) 04:30 01:52 Hospitalization Ordered by Bianca Rodriguez MD for Observation. Preliminary tw4 diagnosis is Anemia etiology unknown; Weakness. Bed requested for Telemetry/MedSurg (observation). Status is Observation. Condition is Stable. Problem is an ongoing problem. Symptoms have worsened. UTI on Admission? No. tw4 05:30 04:33 10/10/2018 04:33 Transfer ordered to [facility]. tl2 Diagnosis is Anemia; Non-ST elevation (NSTEMI) myocardial infarction. Reason for transfer: Higher level of care. Accepting physician is Dr Lawson. Condition is Stable. Problem is an ongoing problem. Symptoms are unchanged. tw4
--- NOTE | 2018-10-10 01:53 | ER ---
Nurse's Notes [facility] Name: Blue Almazan Age: 62 yrs Sex: Male : 1955 Arrival Date: 10/10/2018 Time: 00:41 Bed 5 Private MD: Diagnosis: Anemia;Non-ST elevation (NSTEMI) myocardial infarction Presentation: 10/10 00:42 Presenting complaint: Patient states: "I just checked myself out of the hospital lp1 because I thought I was okay, I was on the 2nd floor, but I'm not okay, I don't feel good"; Patient states "I just feel terrible"; States receiving 2 units of blood during hospital stay; States he has not had his Methadone for a few days. Transition of care: patient was not received from another setting of care. Onset of symptoms was October 10, 2018. Risk Assessment: Do you want to hurt yourself or someone else? Patient reports no desire to harm self or others. Initial Sepsis Screen: Does the patient meet any 2 criteria? No. Patient's initial sepsis screen is negative. Does the patient have a suspected source of infection? No. Patient's initial sepsis screen is negative. Care prior to arrival: None. 00:42 Method Of Arrival: Wheelchair lp1 00:42 Acuity: JAMMIE 3 lp1 Historical: - Allergies: 00:47 Ibuprofen; lp1 00:50 Tylenol; lp1 - Home Meds: 00:47 Methadone 100 mg Oral once daily [Active]; lp1 - PMHx: 00:47 Anemia; DRUG ADDICTION; lp1 - PSHx: 00:50 None; lp1 - Immunization history:: Adult Immunizations unknown. - Social history:: Smoking status: Patient uses tobacco products, smokes one pack cigarettes per day. - Ebola Screening: : No symptoms or risks identified at this time. Screenin:50 Abuse screen: Denies threats or abuse. Denies injuries from another. Nutritional lp1 screening: No deficits noted. Tuberculosis screening: No symptoms or risk factors identified. 01:13 Fall Risk IV access (20 points). Gait- Weak (10 pts.). tl2 Assessment: 01:13 General: Appears in no apparent distress. uncomfortable, Behavior is calm, cooperative, tl2 appropriate for age, drowsy. Pain: Complains of pain in legs, general pain. Neuro: Level of Consciousness is awake, alert, obeys commands, Oriented to person, place, time, situation. Cardiovascular: Denies chest pain. Respiratory: Airway is patent Respiratory effort is even, unlabored, Respiratory pattern is regular, symmetrical. GI: No signs and/or symptoms were reported involving the gastrointestinal system. : No signs and/or symptoms were reported regarding the genitourinary system. Derm: Skin is pale. Musculoskeletal: Circulation, motion, and sensation intact. 02:30 Reassessment: Patient appears in no apparent distress at this time. Patient and/or tl2 family updated on plan of care and expected duration. Pain level reassessed. Patient is alert, oriented x 3, equal unlabored respirations, skin warm/dry/pink. 03:30 Reassessment: Patient appears in no apparent distress at this time. Patient and/or tl2 family updated on plan of care and expected duration. Pain level reassessed. Patient is alert, oriented x 3, equal unlabored respirations, skin warm/dry/pink. 04:30 Reassessment: Patient appears in no apparent distress at this time. Patient and/or tl2 family updated on plan of care and expected duration. Pain level reassessed. Patient is alert, oriented x 3, equal unlabored respirations, skin warm/dry/pink. 05:00 Reassessment: Patient appears in no apparent distress at this time. Patient and/or tl2 family updated on plan of care and expected duration. Pain level reassessed. Patient is alert, oriented x 3, equal unlabored respirations, skin warm/dry/pink. pt getting frustrated about not having methadone and expresses concerns with the transfer. Explained to pt importance of transfer for safety and higher level of care. Vital Signs: 00:48 BP 159 / 66; Pulse 69; Resp 18; Temp 99(O); Pulse Ox 100% on R/A; Weight 68.04 kg; lp1 Height 5 ft. 8 in. (172.72 cm); Pain 0/10; 01:30 BP 143 / 74; Pulse 63; Resp 14; Pulse Ox 99% on R/A; tl2 02:32 BP 152 / 82; Pulse 72; Resp 18; Pulse Ox 99% on R/A; tl2 04:43 BP 137 / 87; Pulse 70; Resp 18; Pulse Ox 100% on R/A; tl2 00:48 Body Mass Index 22.81 (68.04 kg, 172.72 cm) lp1 ED Course: 00:41 Patient arrived in ED. ds1 00:47 Triage completed. lp1 00:47 Arm band placed on right wrist. lp1 00:57 Teodoro Lambert MD is Attending Physician. tw4 01:13 Patient has correct armband on for positive identification. Placed in gown. Bed in low tl2 position. Call light in reach. Side rails up X2. 01:13 Initial lab(s) drawn, by me, sent to lab. Inserted saline lock: 22 gauge in left tl2 antecubital area, using aseptic technique. Blood collected. 01:51 Bianca Rodriguez MD is Hospitalizing Provider. tw4 03:38 Cara Luis, EDUARDO is Primary Nurse. tl2 04:30 No provider procedures requiring assistance completed. tl2 05:00 Patient transferred, IV remains in place. tl2 Administered Medications: 03:39 Drug: Nicoderm CQ 21 mg/24 hr 1 patches {Note: left deltoid.} Route: Transdermal; Site: tl2 affected area; 05:30 Follow up: Response: No adverse reaction tl2 04:43 Drug: ProTONIX 8 mg/hr Route: IV; Rate: 25 ml/hr; Site: left antecubital; tl2 05:29 Follow up: IV Status: Infusion continued upon transfer tl2 Outcome: 01:52 Decision to Hospitalize by Provider. tw4 04:33 ER care complete, transfer ordered by MD. tw4 05:00 Transferred by ground EMS to [facility], Transfer form completed. tl2 05:00 Condition: stable 05:00 Discharge instructions given to patient, Instructed on the need for transfer. 05:30 Patient left the ED. tl2 Signatures: Virginia Kaba ds1 Nereyda Choudhary RN RN lp1 Cara Luis RN RN tl2 Teodoro Lambert MD MD tw4 Corrections: (The following items were deleted from the chart) 05:29 04:30 Patient transferred, IV remains in place. tl2 tl2 :29 04:30 Transferred by ground EMS to [facility], Transfer form completed. tl2 tl2 29 04:30 Condition: stable tl2 tl2 05:29 04:30 Discharge instructions given to patient, Instructed on the need for transfer, tl2 tl2
[2018-10-10 03:25] LABS: Urine White Blood Cell Casts OK
[2018-10-10 03:26] LABS: Anisocytosis 1+; Blood Morphology Comment NOTED (NOT SEEN); Platelet Estimate ADEQ
[2018-10-10 03:43] LABS: CKMB Creatine Kinase MB 199.1 ng/mL (0.3-3.6); Troponin (Emerg Dept Use Only) 23.9 ng/mL (0.0-0.045)
[2018-10-10] MEDS ORDERED: NICOTINE 21 MG/PAT TD ONE (03:47)
[2018-10-10] MEDS ORDERED: PANTOPRAZOLE 40 MG INJ ONE (04:52)
[2018-10-10] MEDS ORDERED: NA CHLORIDE 0.9% 250 ML ONE (04:52)
[2018-10-10 05:35] VITALS: TEMP 99
[2018-10-10 05:38] VITALS: BP 137/87; O2SAT 100
--- NOTE | 2018-10-10 07:12 | EKG ---
Test Date: 2018-10-10 Test Time: 03:26:10 Control Integration Engineer: SON MEASUREMENT RESULTS: Intervals: Rate: 63 GA: 128 QRSD: 88 QT: 492 QTc: 503 [place]: P: 67 GA: 128 QRS: 49 T: 73 INTERPRETIVE STATEMENTS: Normal sinus rhythm Possible Left atrial enlargement Left ventricular hypertrophy with repolarization abnormality Prolonged QT Abnormal ECG Compared to ECG 10/09/2018 06:51:34 Early repolarization now present Prolonged QT interval now present ST (T wave) deviation no longer present Electronically Signed On 10-10-18 07:12:07 CDT by Wero Sweeney
== END 2018-10-10 05:30 | disposition short-term general hospital (02) ==
LOC: ER 00:39
PROC: 30233N1 Transfusion of Nonautologous Red Blood Cells into Peripheral Vein, Percutaneous Approach (ICD-10-PCS; principal; 2018-10-10)
DX: D64.9 Anemia, unspecified (principal); I21.4 Non-ST elevation (NSTEMI) myocardial infarction; F17.210 Nicotine dependence, cigarettes, uncomplicated; Z88.6 Allergy status to analgesic agent
CPT/HCPCS: 36415; 80053; 82553; 84484; 85025; 93005; C9113

== ENCOUNTER 2019-06-21 09:39 | Observation (INO) | payer OTHER, SELFPAY ==
[2019-06-21 10:49] LABS: Protime INR 1.15
--- NOTE | 2019-06-21 11:08 | RAD REPORT ---
EXAM DESCRIPTION: RAD - Chest Single View - 06/21/2019 10:58 am CLINICAL HISTORY: DYSPNEA Chest pain. COMPARISON: Chest Single View dated 10/09/2018; CHEST SINGLE VIEW dated 07/19/2012; CHEST SINGLE VIEW d ated 05/07/2008; CHEST SINGLE VIEW dated 12/16/2004 FINDINGS: Portable technique limits examination quality. Mild interstitial pulmonary edema seen. The heart is mildly enlarged in size. No displaced fractures. IMPRESSION: Mild CHF.
[2019-06-21 11:10] LABS: Absolute Lymphocytes (CBC) 1.8 K/uL (0.7-4.9); Basophils % 0.6 % (0-1.3); Hematocrit 32.6 % (39.6-49.0); MPV 11.1 fL (7.6-11.3); RBC Red Blood Cell Count 4.94 M/uL (4.33-5.43)
[2019-06-21 11:13] LABS: ALT/SGPT 36 U/L (12-78); AST/SGOT 26 U/L (15-37); Albumin 3.1 g/dL (3.4-5.0); Alkaline Phosphatase 144 U/L (45-117); BUN Blood Urea Nitrogen 18 mg/dL (7-18); Bicarbonate 31 mmol/L (21-32); Bilirubin Direct < 0.1 mg/dL (0-0.2); Bilirubin Total 0.3 mg/dL (0.2-1.0); Glucose Level 114 mg/dL (74-106); Magnesium 2.4 mg/dL (1.8-2.4); NT PRO-BNP 3669 pg/mL (<125); Potassium 3.7 mmol/L (3.5-5.1); Protein, Total 6.8 g/dL (6.4-8.2); Sodium Level 142 mmol/L (136-145); Troponin (Emerg Dept Use Only) < 0.02 ng/mL (0.0-0.045)
[2019-06-21] MEDS ORDERED: NITROGLYCERIN 0.4 MG/TAB SL ONE (11:47)
[2019-06-21] MEDS ORDERED: FUROSEMIDE 100 MG/10 ML VIAL IV ONE (11:47)
--- NOTE | 2019-06-21 12:12 | ER ---
Nurse's Notes [facility] Name: Blue Almazan Age: 63 yrs Sex: Male : 1955 Arrival Date: 06/21/2019 Time: 09:48 Bed 16 Private MD: Diagnosis: Acute combined systolic (congestive) and diastolic (congestive) heart failure;Hypertensive Emergency ;Abnormal electrocardiogram [ECG] [EKG] Presentation: 06/21 10:10 Presenting complaint: Patient states: Generalized weakness for 2 weeks, report having iw pale color, and feeling irregular heart rate at home, denies any pain, no n/v/d/fever at this time. Transition of care: patient was not received from another setting of care. No acute neurological deficit is noted. Risk Assessment: Do you want to hurt yourself or someone else? Patient reports no desire to harm self or others. Initial Sepsis Screen: Does the patient meet any 2 criteria? No. Patient's initial sepsis screen is negative. Does the patient have a suspected source of infection? No. Patient's initial sepsis screen is negative. Care prior to arrival: None. 10:10 Method Of Arrival: Ambulatory iw 10:10 Acuity: JAMMIE 3 iw 12:18 Pre-hospital glucose is not applicable to this patient. Onset of symptoms was May. Stroke Activation: Symptom onset > 6 hours Physician: Stroke Attending; Name: ; Notified At: ; Arrived At: Physician: Chief Stroke Resident; Name: ; Notified At: ; Arrived At: Physician: Stroke Resident; Name: ; Notified At: ; Arrived At: Physician: ED Attending; Name: ; Notified At: ; Arrived At: Physician: ED Resident; Name: ; Notified At: ; Arrived At: Historical: - Allergies: 10:18 Ibuprofen; sg 10:18 Tylenol; sg - PMHx: 10:18 Anemia; DRUG ADDICTION; sg - PSHx: 10:18 None; sg - Immunization history:: Adult Immunizations. - Social history:: Smoking status: Patient uses tobacco products. - Ebola Screening: : Patient negative for fever greater than or equal to 101.5 degrees Fahrenheit, and additional compatible Ebola Virus Disease symptoms Patient denies exposure to infectious person Patient denies travel to an Ebola-affected area in the 21 days before illness onset No symptoms or risks identified at this time. Screenin:17 Abuse screen: Denies threats or abuse. Denies injuries from another. Nutritional ph screening: No deficits noted. Tuberculosis screening: No symptoms or risk factors identified. Fall Risk None identified. Assessment: 10:45 General: Appears in no apparent distress. comfortable, slender, Behavior is calm, ph cooperative, appropriate for age, Reports fatigue for Denies fever, chills. Pain: Denies pain. Neuro: Level of Consciousness is awake, alert, obeys commands, Oriented to person, place, time, situation, Reports weakness "all over". Cardiovascular: Reports fatigue, lightheadedness, palpitations, shortness of breath, Rhythm is Vent bigeminy. Respiratory: Reports shortness of breath on exertion Airway is patent Respiratory effort is even, unlabored, Respiratory pattern is regular, symmetrical. GI: No signs and/or symptoms were reported involving the gastrointestinal system. Derm: Skin is intact, Skin is dry, Skin is pale, Skin temperature is warm Reports intermittent rash to abdomen and elham shins. Musculoskeletal: Circulation, motion, and sensation intact. Range of motion: intact in all extremities. 11:00 VAN Scoring: Arm Drift: Patients demonstrates NO arm weakness. Patient is VAN Negative. ph 12:08 Reassessment: Patient appears in no apparent distress at this time. Patient and/or ph family updated on plan of care and expected duration. Pain level reassessed. Patient is alert, oriented x 3, equal unlabored respirations, skin warm/dry/pink. ERP at bedside to speak w/ pt. 12:16 Patient has been NPO before screening. The patient is alert, and able to follow ph commands. The patient does not exhibit slurred or garbled speech. The patient is not exhibiting difficulty speaking. The patient does not exhibit difficulty understanding words. The patient is able to swallow own secretions with no drooling or need for suction. Patient tolerated one teaspoon of water. No drooling, immediate coughing, gurgling, or clearing of the throat was noted. The patient tolerated 90mL of water. No drooling, immediate coughing, gurgling, or clearing of the throat was noted. The patient passed the bedside swallow screening. Oral medications may be given as ordered. Contact Physician for further diet orders. Provider notified of bedside swallow screening results: Mehdi OH. 13:00 Reassessment: Patient appears in no apparent distress at this time. Patient and/or ph family updated on plan of care and expected duration. Pain level reassessed. Patient is alert, oriented x 3, equal unlabored respirations, skin warm/dry/pink. 14:00 Reassessment: Patient appears in no apparent distress at this time. Patient and/or ph family updated on plan of care and expected duration. Pain level reassessed. Patient is alert, oriented x 3, equal unlabored respirations, skin warm/dry/pink. 15:00 Reassessment: Patient appears in no apparent distress at this time. Patient and/or ph family updated on plan of care and expected duration. Pain level reassessed. Patient is alert, oriented x 3, equal unlabored respirations, skin warm/dry/pink. Awaiting room assignment. 15:45 Reassessment: Patient appears in no apparent distress at this time. Patient and/or ph family updated on plan of care and expected duration. Pain level reassessed. Patient is alert, oriented x 3, equal unlabored respirations, skin warm/dry/pink. Dr Porras at bedside, attempted to call report, receiving nurse unavailable. 16:25 Reassessment: BP noted to have increased to 190s systolic, ERP notified, verbal order ph for IV meds received, see MAR. 16:40 Reassessment: Pt c/o anxiety, states, " I don't know why but I feel really anxious all ph of a sudden and I want to just get out of here and go home." Pt appears anxious, BP remains slightly elevated, ERP notified, see MAR. 17:30 Reassessment: Patient appears in no apparent distress at this time. Patient and/or ph family updated on plan of care and expected duration. Pain level reassessed. Patient is alert, oriented x 3, equal unlabored respirations, skin warm/dry/pink. Pt appears more calm, reports that anxiety has improved, BP also noted to have decreased to 170s systolic, report called to Briseida CLARK on second floor. Vital Signs: 10:10 BP 192 / 62; Pulse 72 MON; Resp 20 S; Temp 97.2; Pulse Ox 96% on R/A; Weight 59.87 kg; sg 11:21 BP 220 / 81; Pulse 59; Resp 27; Temp 97.6(O); Pulse Ox 97% on R/A; mh5 12:11 BP 216 / 91; Pulse 67; Resp 18; Pulse Ox 96% on R/A; ph 12:25 BP 195 / 69; Pulse 65; ph 12:43 BP 218 / 75; Pulse 62; ph 13:15 BP 161 / 82; Pulse 51; Resp 18; Pulse Ox 97% on R/A; ph 14:30 BP 182 / 81; Pulse 54; Resp 16; Pulse Ox 99% on R/A; ph 16:07 BP 202 / 61; Pulse 36; Resp 18; Pulse Ox 99% on R/A; mh5 NIH Stroke Scale Scores: 11:00 NIHSS Score: 0 ph ED Course: 09:48 Patient arrived in ED. am2 10:10 Arm band placed on. EKG completed in triage. Results shown to MD. iw 10:13 Triage completed. iw 10:[address] PA is PHCP. jr8 10:14 Jak Tapia MD is Attending Physician. jr8 10:16 Penelope Aviles, EDUARDO is Primary Nurse. ph 10:35 Patient has correct armband on for positive identification. Bed in low position. Call [facility] light in reach. Side rails up X 1. Warm blanket given. surgery aide on. Pulse ox on. NIBP on. 10:35 Initial lab(s) drawn, by oh, sent to lab. T\\T\\S collected, blood band applied to patient. 5 Inserted saline lock: 20 gauge in left forearm, using aseptic technique. Blood collected. 10:36 TS Sent. 5 10:36 Basic Metabolic Panel Sent. 5 10:36 CBC with Diff Sent. 5 10:36 LFT's Sent. 5 10:36 Magnesium Sent. 5 10:36 NT PRO-BNP Sent. 5 10:36 PT-INR Sent. 5 10:37 Troponin (emerg Dept Use Only) Sent. 5 10:58 XRAY Chest (1 view) In Process Unspecified. EDMS 11:05 EKG done, by technical intern. reviewed by Mehdi OH. tc 12:10 Prince Caldwell MD is Hospitalizing Provider. jr8 12:18 No provider procedures requiring assistance completed. Patient admitted, IV remains in ph place. 12:51 Kelsey Porras MD is Hospitalizing Provider. jr8 Administered Medications: 11:50 Drug: Nitroglycerin 0.4 mg Route: Sublingual; ph 11:51 Drug: Lasix 60 mg Route: IVP; Site: left antecubital; ph 18:07 Follow up: Urine output 1350 ml; Response: No adverse reaction ph 12:11 Drug: Nitroglycerin 0.4 mg Route: Sublingual; ph 12:25 Drug: Nitroglycerin 0.4 mg Route: Sublingual; ph 12:45 Follow up: Response: No adverse reaction; Blood pressure is unchanged ph 12:55 Drug: hydrALAZINE 20 mg Route: IV; Rate: calculated rate; Site: left antecubital; ph 13:15 Follow up: Response: No adverse reaction; Blood pressure is lowered; IV Status: ph Completed infusion 14:43 Drug: Nicotine 21 mg/24 hr 1 patches {Note: applied to L upper arm.} Route: ph Transdermal; Site: affected area; 15:00 Follow up: Response: No adverse reaction ph 16:35 Drug: Enalaprilat 1.25 mg Route: IV; Rate: calculated rate; Site: left antecubital; ph 17:35 Follow up: Response: No adverse reaction; Blood pressure is lowered; IV Status: ph Completed infusion 16:55 Drug: Ativan 1 mg Route: IVP; Site: left antecubital; ph 17:15 Follow up: Response: No adverse reaction; Anxiety decreased ph Output: 12:11 Urine: 550ml (Voided); Total: 550ml. ph 18:07 Urine: 1350ml; Total: 1900ml. ph Outcome: 12:11 Decision to Hospitalize by Provider. jr8 17:30 Admitted to Tele accompanied by tech, family with patient, via wheelchair, room 222, with chart. 17:30 Condition: stable 17:30 Instructed on the need for admit. 17:38 Patient left the ED. NIH Stroke Scale - NIH Stroke Score Date: 06/21/2019 Time: 11:00 Total Score = 0 1a. Level of Consciousness (LOC) - 0(Alert) 1b. Level of Consciousness (LOC) (Year \\T\\ Age) - 0(Both) 1c. LOC Commands (Open \\T\\ Closes Eyes/Pickling Tank Operator) - 0(Both) 2. Best Gaze (Lateral Gaze Paresis) - 0(Normal) 3. Visual Field Loss - 0(No visual loss) 4. Facial Palsy - 0(Normal) 5a. Left Arm: Motor (10-second hold) - 0(No drift) 5b. Right Arm: Motor (10-second hold) - 0(No drift) 6a. Left Leg: Motor (5-second hold - always test supine) - 0(No drift) 6b. Right Leg: Motor (5-second hold - always test supine) - 0(No drift) 7. Limb Ataxia (finger/nose \\T\\ heel/diop - test with eyes open) - 0(Absent) 8. Sensory Loss (pinprick arms/legs/face) - 0(Normal) 9. Best Language: Aphasia (description/naming/reading) - 0(No aphasia) 10. Dysarthria (speech clarity - read or repeat words) - 0(Normal) 11. Extinction and Inattention (visual/tactile/auditory/spatial/personal) - 0(No abnormality) Initials: ph Signatures: Dispatcher [employer] EDPipe Merida RN RN Nicolasa Mcgee RN RN Mehdi Lane PA PA 8 Ellne Deal, software development project manager EKG [facility] Penelope Aviles RN RN Susie Vick [facility] Sophia Saldivar formerly [facility] Corrections: (The following items were deleted from the chart) 11:23 11:21 BP 220 / 81; Pulse 59bpm; Resp 27bpm; Pulse Ox 97% RA; [facility]5 16:11 10:10 BP 92 / 62; Pulse 72bpm; MonitorResp 20bpm; Spontaneous; Pulse Ox 96% RA; sg Temp 97.2F; 59.87 kg; sg
--- NOTE | 2019-06-21 12:12 | EDPHYS ---
Physician Documentation [facility] Name: Blue Almazan Age: 63 yrs Sex: Male : 1955 Arrival Date: 06/21/2019 Time: 09:48 Bed 16 Private MD: ED Physician Jak Tapia HPI: 06/21 10:34 This 63 yrs old Male presents to ER via Ambulatory with complaints of jr8 Weakness. 10:34 Patient stated that over the past week has felt fatigued, weak, and short of breath jr8 with palpitations. Stated that he has had this once before secondary to anemia but could not find cause of bleeding. Denies hematemesis, hematochezia, or melana currently . Onset: The symptoms/episode began/occurred gradually, 1 week(s) ago. Severity of symptoms: At their worst the symptoms were moderate in the emergency department the symptoms are unchanged. The patient has experienced a previous episode. The patient has not recently seen a physician. Historical: - Allergies: 10:18 Ibuprofen; sg 10:18 Tylenol; sg - PMHx: 10:18 Anemia; DRUG ADDICTION; sg - PSHx: 10:18 None; sg - Immunization history:: Adult Immunizations. - Social history:: Smoking status: Patient uses tobacco products. - Ebola Screening: : Patient negative for fever greater than or equal to 101.5 degrees Fahrenheit, and additional compatible Ebola Virus Disease symptoms Patient denies exposure to infectious person Patient denies travel to an Ebola-affected area in the 21 days before illness onset No symptoms or risks identified at this time. ROS: 10:34 Eyes: Negative for injury, pain, redness, and discharge, ENT: Negative for injury, jr8 pain, and discharge, Neck: Negative for injury, pain, and swelling, Abdomen/GI: Negative for abdominal pain, nausea, vomiting, diarrhea, and constipation, Back: Negative for injury and pain, MS/Extremity: Negative for injury and deformity, Skin: Negative for injury, rash, and discoloration, Neuro: Negative for headache, numbness, tingling, and seizure. Positive for general weakness 10:34 Constitutional: Positive for fatigue, malaise. 10:34 Cardiovascular: Positive for palpitations. 10:34 Respiratory: Positive for shortness of breath. Exam: 10:25 Eyes: Pupils equal round and reactive to light, extra-ocular motions intact. Lids and jr8 lashes normal. Conjunctiva and sclera are non-icteric and not injected. Cornea within normal limits. Periorbital areas with no swelling, redness, or edema. ENT: Nares patent. No nasal discharge, no septal abnormalities noted. Tympanic membranes are normal and external auditory canals are clear. Oropharynx with no redness, swelling, or masses, exudates, or evidence of obstruction, uvula midline. Mucous membranes moist. Neck: Trachea midline, no thyromegaly or masses palpated, and no cervical lymphadenopathy. Supple, full range of motion without nuchal rigidity, or vertebral point tenderness. No Meningismus. Respiratory: Lungs have equal breath sounds bilaterally, clear to auscultation and percussion. No rales, rhonchi or wheezes noted. No increased work of breathing, no retractions or nasal flaring. Abdomen/GI: Soft, non-tender, with normal bowel sounds. No distension or tympany. No guarding or rebound. No evidence of tenderness throughout. Back: No spinal tenderness. No costovertebral tenderness. Full range of motion. Skin: Warm, dry with normal turgor. Normal color with no rashes, no lesions, and no evidence of cellulitis. MS/ Extremity: Pulses equal, no cyanosis. Neurovascular intact. Full, normal range of motion. Neuro: Awake and alert, GCS 15, oriented to person, place, time, and situation. Cranial nerves II-XII grossly intact. Motor strength 5/5 in all extremities. Sensory grossly intact. Cerebellar exam normal. Normal gait. 10:25 Cardiovascular: Rate: bradycardic, Rhythm: regular, Pulses: Pulses are 2+ in right radial artery and left radial artery. Heart sounds: murmur, systolic, grade 4 over 6, S1, normal, S2, decreased, Edema: is not appreciated, JVD: is not appreciated. 10:25 ECG was reviewed by the Attending Physician. Vital Signs: 10:10 BP 192 / 62; Pulse 72 MON; Resp 20 S; Temp 97.2; Pulse Ox 96% on R/A; Weight 59.87 kg; sg 11:21 BP 220 / 81; Pulse 59; Resp 27; Temp 97.6(O); Pulse Ox 97% on R/A; mh5 12:11 BP 216 / 91; Pulse 67; Resp 18; Pulse Ox 96% on R/A; ph 12:25 BP 195 / 69; Pulse 65; ph 12:43 BP 218 / 75; Pulse 62; ph 13:15 BP 161 / 82; Pulse 51; Resp 18; Pulse Ox 97% on R/A; ph 14:30 BP 182 / 81; Pulse 54; Resp 16; Pulse Ox 99% on R/A; ph 16:07 BP 202 / 61; Pulse 36; Resp 18; Pulse Ox 99% on R/A; mh5 NIH Stroke Scale Scores: 11:00 NIHSS Score: 0 ph MDM: 10:14 Patient medically screened. 12:09 Data reviewed: vital signs, nurses notes, lab test result(s), EKG, radiologic studies, jr8 plain films. Data interpreted: Pulse oximetry: on room air is 97 %. Interpretation:. Counseling: I had a detailed discussion with the patient and/or guardian regarding: the historical points, exam findings, and any diagnostic results supporting the discharge/admit diagnosis, lab results, radiology results, the need for further work-up and treatment in the hospital. 06/21 10:14 Order name: Basic Metabolic Panel; Complete Time: 11:20 06/21 10:14 Order name: CBC with Diff; Complete Time: 13:02 06/21 10:14 Order name: LFT's; Complete Time: :06/21 10:14 Order name: Magnesium; Complete Time: 11:20 06/21 10:14 Order name: NT PRO-BNP; Complete Time: 11:20 06/21 10:14 Order name: PT-INR; Complete Time: 11:06/21 10:14 Order name: Troponin (emerg Dept Use Only); Complete Time: 11:20 06/21 10:14 Order name: XRAY Chest (1 view); Complete Time: 11:20 06/21 10:18 Order name: TS; Complete Time: 12:05 06/21 13:00 Order name: CBC Smear Scan; Complete Time: 13:02 EDMS 06/21 10:14 Order name: EKG; Complete Time: 10:15 06/21 10:14 Order name: Cardiac monitoring; Complete Time: 10:37 06/21 10:14 Order name: EKG - Nurse/Tech; Complete Time: 10:37 06/21 10:14 Order name: IV Saline Lock; Complete Time: 10:37 06/21 10:14 Order name: Labs collected and sent; Complete Time: 10:37 06/21 10:14 Order name: O2 Per Protocol; Complete Time: 11:42 06/21 10:14 Order name: O2 Sat Monitoring; Complete Time: 11:06/21 10:42 Order name: Labs - recollect needed: recollect T\T\S; Complete Time: 11:42 eb EC:25 Rate is 66 beats/min. Rhythm is irregular, Sinus bradycardia with Unifocal PVCs. QRS rust [place] is Normal. AL interval is normal at 120 msec. QRS interval is normal at 88 msec. QT interval is prolonged at 452 msec. No Q waves. T waves are Flattened. No ST changes noted. Clinical impression: Abnormal EKG without significant change, Sinus bradycardia, and Bigeminy. Interpreted by me. Reviewed by me. Administered Medications: 11:50 Drug: Nitroglycerin 0.4 mg Route: Sublingual; ph 11:51 Drug: Lasix 60 mg Route: IVP; Site: left antecubital; ph 18:07 Follow up: Urine output 1350 ml; Response: No adverse reaction ph 12:11 Drug: Nitroglycerin 0.4 mg Route: Sublingual; ph 12:25 Drug: Nitroglycerin 0.4 mg Route: Sublingual; ph 12:45 Follow up: Response: No adverse reaction; Blood pressure is unchanged ph 12:55 Drug: hydrALAZINE 20 mg Route: IV; Rate: calculated rate; Site: left antecubital; ph 13:15 Follow up: Response: No adverse reaction; Blood pressure is lowered; IV Status: ph Completed infusion 14:43 Drug: Nicotine 21 mg/24 hr 1 patches {Note: applied to L upper arm.} Route: ph Transdermal; Site: affected area; 15:00 Follow up: Response: No adverse reaction ph 16:35 Drug: Enalaprilat 1.25 mg Route: IV; Rate: calculated rate; Site: left antecubital; ph 17:35 Follow up: Response: No adverse reaction; Blood pressure is lowered; IV Status: ph Completed infusion 16:55 Drug: Ativan 1 mg Route: IVP; Site: left antecubital; ph 17:15 Follow up: Response: No adverse reaction; Anxiety decreased ph Disposition: 06/22 08:16 Co-signature as Attending Physician, Jak Tapia MD I agree with the assessment and [facility] plan of care. Disposition: 06/21/19 12:11 Hospitalization ordered by Kelsey Porras for Inpatient Admission. Preliminary diagnosis are Acute combined systolic (congestive) and diastolic (congestive) heart failure, Hypertensive Emergency , Abnormal electrocardiogram [ECG] [EKG]. - Bed requested for Telemetry/MedSurg (Inpatient). - Status is Inpatient Admission. ph - Condition is Fair. - Problem is new. - Symptoms have improved. UTI on Admission? No NIH Stroke Scale - NIH Stroke Score Date: 06/21/2019 Time: 11:00 Total Score = 0 1a. Level of Consciousness (LOC) - 0(Alert) 1b. Level of Consciousness (LOC) (Year \T\ Age) - 0(Both) 1c. LOC Commands (Open \T\ Closes Eyes/Furniture Shampooer) - 0(Both) 2. Best Gaze (Lateral Gaze Paresis) - 0(Normal) 3. Visual Field Loss - 0(No visual loss) 4. Facial Palsy - 0(Normal) 5a. Left Arm: Motor (10-second hold) - 0(No drift) 5b. Right Arm: Motor (10-second hold) - 0(No drift) 6a. Left Leg: Motor (5-second hold - always test supine) - 0(No drift) 6b. Right Leg: Motor (5-second hold - always test supine) - 0(No drift) 7. Limb Ataxia (finger/nose \T\ heel/diop - test with eyes open) - 0(Absent) 8. Sensory Loss (pinprick arms/legs/face) - 0(Normal) 9. Best Language: Aphasia (description/naming/reading) - 0(No aphasia) 10. Dysarthria (speech clarity - read or repeat words) - 0(Normal) 11. Extinction and Inattention (visual/tactile/auditory/spatial/personal) - 0(No abnormality) Initials: ph Signatures: Dispatcher [employer] EDMS Pipe Maldonado RN RN sg Anderson, Corey, MD MD cha Roszak, Josh, PA PA jr8 Hall, Patricia, RN RN ph Elma Machado Corrections: (The following items were deleted from the chart) 06/21 12:51 12:11 Hospitalization Ordered by Prince Paulette LYNN for Inpatient Admission. jr8 Preliminary diagnosis is Acute combined systolic (congestive) and diastolic (congestive) heart failure; Hypertensive Emergency ; Abnormal electrocardiogram [ECG] [EKG]. Bed requested for Telemetry/MedSurg (Inpatient). Status is Inpatient Admission. Condition is Fair. Problem is new. Symptoms have improved. UTI on Admission? No. jr8 14:04 12:51 06/21/2019 12:11 Hospitalization Ordered by Kelsey Porras MD for Inpatient eb Admission. Preliminary diagnosis is Acute combined systolic (congestive) and diastolic (congestive) heart failure; Hypertensive Emergency ; Abnormal electrocardiogram [ECG] [EKG]. Bed requested for Telemetry/MedSurg (Inpatient). Status is Inpatient Admission. Condition is Fair. Problem is new. Symptoms have improved. UTI on Admission? No. jr8 15:11 14:04 06/21/2019 12:11 Hospitalization Ordered by Kelsey Porras MD for Inpatient eb Admission. Preliminary diagnosis is Acute combined systolic (congestive) and diastolic (congestive) heart failure; Hypertensive Emergency ; Abnormal electrocardiogram [ECG] [EKG]. Bed requested for Telemetry/MedSurg (Inpatient). Status is Inpatient Admission. Condition is Fair. Problem is new. Symptoms have improved. UTI on Admission? No. eb 17:38 15:11 06/21/2019 12:11 Hospitalization Ordered by Kelsey Porras MD for Inpatient Admission. Preliminary diagnosis is Acute combined systolic (congestive) and diastolic (congestive) heart failure; Hypertensive Emergency ; Abnormal electrocardiogram [ECG] [EKG]. Bed requested for Telemetry/MedSurg (Inpatient). Status is Inpatient Admission. Condition is Fair. Problem is new. Symptoms have improved. UTI on Admission? No. eb
[2019-06-21] MEDS ORDERED: HYDRALAZINE HCL 20 MG/ML VIAL ONE ×2 (12:51→18:35)
[2019-06-21 13:00] LABS: Anisocytosis 1+; Blood Morphology Comment NOTED (NOT SEEN); Hypochromasia 1+; Platelet Estimate ADEQ; Urine White Blood Cell Casts OK
[2019-06-21 13:01] LABS: Poikilocytosis 1+
--- NOTE | 2019-06-21 13:22 | EKG ---
Test Date: 2019-06-21 Test Time: 10:20:11 Quarry Plug And Feather Driller: STEVEN MEASUREMENT RESULTS: Intervals: Rate: 66 NE: 120 QRSD: 88 QT: 432 QTc: 452 [place]: P: 74 NE: 120 QRS: 74 T: 60 INTERPRETIVE STATEMENTS: Sinus rhythm with frequent premature ventricular complexes in a pattern of bigeminy Biatrial enlargement Left ventricular hypertrophy with repolarization abnormality Abnormal ECG Compared to ECG 10/10/2018 03:26:10 Ventricular premature complex(es) now present Prolonged QT interval no longer present Electronically Signed On 06-21-19 13:20:54 AIRFREIGHT OPERATIONS AGENT by Fritz Lucero
[2019-06-21] MEDS ORDERED: NICOTINE 21 MG/PAT TD ONE (14:41)
[2019-06-21] MEDS ORDERED: ENALAPRILAT 1.25 MG/ML VIAL IV ONE (16:23)
[2019-06-21] MEDS ORDERED: LORazepam 2 MG/ML VIAL ONE (16:52)
[2019-06-21] MEDS ORDERED: ACETAMINOPHEN 500 MG TAB PO PRN (17:34)
[2019-06-21] MEDS ORDERED: ONDANSETRON 4 MG/2 ML VIAL IV PRN (17:34)
[2019-06-21] MEDS: METOPROLOL TAR 25 MG TAB PO SCH (18:00)
[2019-06-21] MEDS ORDERED: LORazepam 2 MG/ML VIAL IV PRN (18:34)
[2019-06-21] MEDS ORDERED: HYDRALAZINE HCL 20 MG/ML VIAL IV PRN (18:34)
[2019-06-21] MEDS: FUROSEMIDE 40 MG/4 ML VIAL IV SCH (18:37)
[2019-06-21] MEDS: ENOXAPARIN 40 MG/0.4 ML SQ SCH (18:38)
[2019-06-22] MEDS: HYDRALAZINE HCL 20 MG/ML VIAL IV PRN ×2 (01:03→09:16)
--- NOTE | 2019-06-22 01:12 | HP ---
Date of Admission: 06/21/2019 Chief Complaint: Generalized weakness, shortness of breath. Primary Care Physician: None. History Of Present Illness: Patient is a 63-year-old, male with past medical history of chronic pain syndrome on methadone for the past 10 years, anemia, history of MT in the past in September 2018, as well as hypertension and congestive heart failure. Patient comes in with shortness of breath and generalized weakness. Patient also reported some palpitations. Denies any current bleeding. Patient was found to be very much hypertensive with blood pressure in the 200s/80s. His EKG showed ventricular bigeminy. Patient was given hydralazine, Lasix, and nitroglycerin, which improved his pain. BNP was elevated. The patient's symptoms are constant, moderate, progressively worsening. Denies any fever, cough, chills, or sputum production. No ill contacts. He was then referred for admission. His chest x-ray showed mild CHF. Past Medical History: Hypertension, coronary artery disease, anemia, chronic pain with chronic use of methadone, opioid addiction. Allergies: TO IBUPROFEN. Medications: List reviewed. Surgical History: Patient has had a heart catheterization as well as scopes. Family History: Mother had GI cancer. Social History: Patient smokes daily, has been smoking for over 30 years. No alcohol use or illicit drug use. Review of Systems: Ten-point system reviewed, negative except as per HPI. Physical Examination: Vital Signs: Blood pressure 220/81, pulse 59, respirations 27, temperature 97.6 , O2 97% on room air. GENERAL: Awake, alert, and oriented x3, in some mild distress, appears significantly older than stated age, ill-appearing male. HEENT: Normocephalic, atraumatic. PERRLA. EOMI. Dry mucous membranes. Poor dentition. Conjunctivae are anicteric. Neck: Supple. No JVD. Trachea midline. CV: S1, S2. The patient has murmur, has arrhythmia. Respiratory: Diminished breath sounds, some crackles present. Patient is slightly tachypneic. No use of accessory muscles. Gastrointestinal: Abdomen is soft, nontender, nondistended. Positive bowel sounds. Extremities: No clubbing, cyanosis, or edema. No calf tenderness. Neuro: Cranial nerves 2 through 12 intact grossly. No focal neurological deficit. Speech is normal. Skin: The patient has some papular rash on his left lower extremity, likely insect bite. No erythema. Psych: Mood is somewhat depressed. Affect is flat. Insight and judgment are fair. Laboratory Data: Sodium 142, potassium 3.7, chloride 105, CO2 of 31, BUN 18, creatinine 0.85, glucose 114, calcium 8.6, magnesium 2.4. Troponin less than 0.02. BNP 3669. WBC 10.4, H and H 9.9 and 32.6, platelets 234, neutrophils 74% . INR 1.15. Chest x-ray shows mild CHF. EKG, shows sinus rhythm with frequent premature ventricular complexes in a pattern of bigeminy, biatrial enlargement, left ventricular hypertrophy with repolarization abnormality, rate of 66. Assessment: A 63-year-old male with, 1. Acute diastolic congestive heart failure. We will start on congestive heart failure guidelines with Lasix, beta-shalom, and MARQUITA inhibitor. We will obtain echocardiogram. Spoke with Dr. Lucero, Cardiology has been consulted. We will keep on fluid restriction, monitor I's and O's, and daily weights 2. Hypertensive emergency. Blood pressure was 220 systolic, improved with Lasix and nitroglycerin. We will start on hydralazine p.r.n. Resume home medications. 3. Hypertensive heart disease. 4. Ventricular bigeminy. We will continue with beta-shalom. Continue on cardiac telemetry. 5. Anemia. 6. Opioid addiction, currently on methadone. History of myocardial infarction in the recent past, status post cardiac catheterization. The patient unable to tell me the details of his hospital stay at [facility] in September 2018. We will need to obtain records. Plan: Admit patient to Med-Surg, place as inpatient, length of stay greater than 2 midnights. /MEDINA Voice ID: [id number] SCOTT
[2019-06-22 03:31] LABS: Urine Appearance CLEAR; Urine Bilirubin NEGATIVE (NEG); Urine Blood NEGATIVE (NEG); Urine Color YELLOW; Urine Glucose NEGATIVE (NEG); Urine Protein NEGATIVE (NEG); Urine Urobilinogen 0.2 mg/dL (0.2-1.0); Urine pH 7.5 (5.0-7.0)
[2019-06-22 03:42] LABS: Barbiturates NEGATIVE (NEGATIVE); Benzodiazepines NEGATIVE (NEGATIVE); Cocaine NEGATIVE (NEGATIVE); METHAMPHETAM NEGATIVE (NEGATIVE); Methadone POSITIVE (NEGATIVE); Opiates NEGATIVE (NEGATIVE); Phencyclidine NEGATIVE (NEGATIVE); THC Cannibis NEGATIVE (NEGATIVE)
[2019-06-22 04:52] LABS: Urine Microscopic Reflex NO UMIC
[2019-06-22 05:14] VITALS: BMI 17.2
[2019-06-22] MEDS ORDERED: METOPROLOL TAR 25 MG TAB ONE (06:29)
[2019-06-22] MEDS: METOPROLOL TAR 25 MG TAB PO SCH (06:34)
[2019-06-22 06:47] LABS: ALT/SGPT 29 U/L (12-78); AST/SGOT 18 U/L (15-37); Albumin 2.8 g/dL (3.4-5.0); Alkaline Phosphatase 121 U/L (45-117); BUN Blood Urea Nitrogen 20 mg/dL (7-18); Bicarbonate 30 mmol/L (21-32); Bilirubin Total 0.5 mg/dL (0.2-1.0); Glucose Level 82 mg/dL (74-106); Potassium 3.5 mmol/L (3.5-5.1); Protein, Total 6.2 g/dL (6.4-8.2); Sodium Level 142 mmol/L (136-145)
[2019-06-22 07:01] LABS: Absolute Lymphocytes (CBC) 2.2 K/uL (0.7-4.9); Basophils % 0.7 % (0-1.3); Hematocrit 33.5 % (39.6-49.0); Lymphocytes % 19.4 % (15.3-44.8); MPV 10.3 fL (7.6-11.3); RBC Red Blood Cell Count 5.07 M/uL (4.33-5.43)
[2019-06-22] MEDS ORDERED: FUROSEMIDE 40 MG/4 ML VIAL ONE (07:53)
[2019-06-22] MEDS ORDERED: INFLUENZA VACCINE (for 3y+) 0.5 ML DOSE IMVAC ONE (08:00)
[2019-06-22] MEDS ORDERED: ENOXAPARIN 40 MG/0.4 ML SQ ONE (08:10)
[2019-06-22] MEDS ORDERED: lisinopriL 10 MG TAB ONE ×2 (08:10→09:12)
[2019-06-22] MEDS: ENOXAPARIN 40 MG/0.4 ML SQ SCH (08:38)
[2019-06-22] MEDS: FUROSEMIDE 40 MG/4 ML VIAL IV SCH (08:38)
[2019-06-22 08:45] LABS: Anisocytosis 2+; Blood Morphology Comment NOTED (NOT SEEN); Platelet Estimate ADEQ; Urine White Blood Cell Casts OK
[2019-06-22 08:46] LABS: Hypochromasia 2+; Ovalocytes 1+
[2019-06-22] MEDS ORDERED: lisinopriL 10 MG TAB PO SCH (09:00)
[2019-06-22] MEDS ORDERED: POTASSIUM CL SA 10 MEQ TAB PO ONE (09:00)
[2019-06-22] MEDS ORDERED: METHADONE HCL 10 MG TAB PO SCH (09:00)
[2019-06-22] MEDS ORDERED: HYDRALAZINE HCL 20 MG/ML VIAL ONE (09:12)
[2019-06-22] MEDS ORDERED: NICOTINE 7 MG/PAT TD SCH (09:30)
[2019-06-22] MEDS ORDERED: LORazepam 2 MG/ML VIAL ONE (10:43)
[2019-06-22 10:57] VITALS: O2SAT 94
[2019-06-22 12:05] VITALS: BP 152/67; TEMP 98.2
--- NOTE | 2019-06-22 13:30 | CON ---
This is a 63-year-old man. History Of Present Illness: Mr. Almazan came to the hospital because his calves burn when he walks. Lon elliott says this has just been 2 weeks, but after talking with his either or female significant other it is apparent he has had these symptoms for sometime within the last year. He has been admitted at [facility] where they did angiography of his heart, maybe other vessels and told him that he n eeded several heart stents and perhaps some other stents, but recommended against doing it because he has a problem with bleeding, so he has never had any coronary interventions. He did have a cardiac cath. Outpatient medications are methadone. No other medicines. He has been started on numerous ot her medicines. He has had several episodes of significant GI bleeding requiring transfusion and seem s never to have a diagnosis made as to exactly what is causing it, so he probably has diffuse angiody splasia of his intestines and has chronic blood loss, it gets worse if he takes antiplatelet agents. This was the reason that the doctors at [place] decided not to put any stents in. Patient does not have any threatened tissue loss. No ulcers. He claudicates at short distance 25 to 50 feet, will of ten do it. He is not having chest pain now. Since he has been in the hospital his hemoglobin is 9.8, that is the highest it has been in quite some time. BUN and creatinine are normal. Blood sugars no rmal. Random blood sugar was 114. Troponins are less than 0.02. His EKG does not show anything to suggest he needs to stay in the hospital, so I think we could consider doing an angiogram on his aort a and leg arteries and see if there is some stent procedure we could do, but it is not an emergency, he does not need to stay in the hospital until that is done. Physical Examination: General: He is 5 feet 8 inches, 113 pounds. Emaciated, alert and oriented. Lungs: Clear. Heart: Exam within normal limits. Abdomen: Soft. Extremities: There are bilateral femoral bruits, one on the left is worse. Pulses are absent poplit eal, posterior tibial and dorsalis pedis. The skin is slightly cool but it is pink. Capillary refil l time is about 5 seconds. Impression: The patient has severe vascular disease throughout his body. We can see him in the offi ce and set up an outpatient angiogram, possible stent. Patient desperately needs to quit using tobac co. He is a regular tobacco user. EKATERINA/MEDINA Voice ID: [id number] Report ID: [id number]
--- NOTE | 2019-06-22 14:09 | ECHO ---
HEIGHT: 5 ft 8 in WEIGHT: 113 lb 8 oz DATE OF STUDY: 06/22/[address]: Kelsey Porras MD 2-DIMENSIONAL: YES M.MODE: YES DOPPLER: YES COLOR FLOW: YES TDS: NO PORTABLE: NO DEFINITY: NO BUBBLE STUDY: NO DIAGNOSIS: CONGESTIVE HEART FAILURE CARDIAC HISTORY: CATHERIZATION: NO SURGERY: NO PROSTHETIC VALVE: NO PACEMAKER: NO MEASUREMENTS (cm) DIASTOLIC (NORMALS) SYSTOLIC (NORMALS) IVSd 1.0 (0.6-1.2) LA Diam 4.2 (1.9-4.0) LVEF 59% LVIDd 4.1 (3.5-5.7) LVIDs 2.8 (2.0-3.5) %FS 31% LVPWd 1.1 (0.6-1.2) Ao Diam 2.8 (2.0-3.7) 2 DIMENSIONAL ASSESSMENT: RIGHT ATRIUM: NORMAL LEFT ATRIUM: DILATED RIGHT VENTRICLE: NORMAL LEFT VENTRICLE: NORMAL TRICUSPID VALVE: NORMAL MITRAL VALVE: NORMAL PULMONIC VALVE: NORMAL AORTIC VALVE: NORMAL PERICARDIAL EFFUSION: NONE AORTIC ROOT: NORMAL LEFT VENTRICULAR WALL MOTION: NORMAL. DOPPLER/COLOR FLOW: MILD TRICUSPID REGURGITATION. ESTIMATED RIGHT VENTRICULAR SYSTOLIC PRESSURE 40-45mmHg (MILD PULMONARY HYPERTENSION). COMMENTS: NORMAL LEFT VENTRICULAR EJECTION FRACTION. DILATED LEFT ATRIUM. MILD TRICUSPID REGURGITATION. MILD PULMONARY HYPERTENSION. TECHNOLOGIST: EARL CHAVES
--- NOTE | 2019-06-23 02:26 | DS ---
Date of Discharge: 06/22/2019 Consultants: Dr. Sweeney with Cardiology. Discharge Diagnoses: 1.Acute congestive heart failure, diastolic dysfunction, improved. 2.Hypertensive emergency, improved. 3.Hypertensive heart disease. 4.Ventricular bigeminy. 5.Coronary artery disease, history of myocardial infarction, kiana artery and kiana heart without angina. 6.Peripheral vascular disease with claudication. 7.Anemia. Patient has history of GI bleed in the past, told not to take any ibuprofen or aspirin. 8.Opiate addiction on methadone for the past 10 years. 9.Nicotine dependence with cigarette smoking. Hospital Course: The patient is a 63-year-old male with past medical history of opiate addiction, cu rrently on methadone, history of WI in the past and congestive heart failure along with hypertension and history of GI bleed recently. Patient came in with shortness of breath and claudication symptoms . He was found to have some mild CHF on chest x-ray. His BNP was elevated. His blood pressure was significantly elevated at 200/80. Patient was given multiple medications to help bring the blood pre ssure down, which improved. His troponin was negative. Patient did not have an elevated white blood cell count. His EKG showed premature ventricular complexes in a pattern of bigeminy. He was seen b y marine engine machinist, Dr. Sweeney, who recommended outpatient angiogram for the claudication. Patient was u nable to tolerate beta-blockers. His heart rate went down to the 30s, therefore was discontinued. Lon elliott does need anti-platelet therapy including aspirin and Plavix. However, due to his history of signi ficant GI bleeds, allergy to ibuprofen, no recommendations were made to start on antiplatelet therapy at this time. Patient was counseled extensively regarding his disease process. The patient will ne ed to stop smoking in order to help with his PVD and claudication. He has history of WI as well. Morales aguero also was encouraged to establish care with the primary care doctor. The patient diuresed well, he was negative 1.2 L. His breathing was significantly better. He was on room air. He was then cl eared for discharge from Dr. Sweeney's standpoint. He will have echocardiogram done as an outpatient along with angiogram if currently not able to tolerate anti-platelet therapy. Followup: Follow up with primary care physician in 2-3 days. Follow up with marine engine machinist, Dr. Aleah alberto in 2 weeks. Return to ER for worsening condition. Diet: Low-sodium, fluid-restricted diet. Activity: As tolerated. Medications: As per medication reconciliation list. The patient encouraged to obtain a blood pressure cuff and monitor his blood pressure levels at diffe rent times of the day and keep a log to provide to his marine engine machinist and PCP. Physical Examination: General: Awake, alert, and oriented x3. No acute distress. CV: S1, S2. Respiratory: Moving air well bilaterally. Abdomen: Abdomen is soft, nontender, nondistended. Positive bowel sounds. Extremities: No clubbing, cyanosis, edema. Neurologic: Nonfocal. SA/MODL Voice ID: [id number] Report ID: [id number]
== END 2019-06-22 12:34 | disposition home or self-care (01) ==
LOC: ER 09:39 → INTOOBSV 14:21 → ERHOLD 14:21 → 2ND 17:06
PROVIDERS: ADMIT Family Medicine; ATTEND Family Medicine
DX: I11.0 Hypertensive heart disease with heart failure (principal); I50.31 Acute diastolic (congestive) heart failure; I16.1 Hypertensive emergency; I25.10 Atherosclerotic heart disease of native coronary artery without angina pectoris; I73.9 Peripheral vascular disease, unspecified; D64.9 Anemia, unspecified; F11.20 Opioid dependence, uncomplicated; F17.210 Nicotine dependence, cigarettes, uncomplicated; I25.2 Old myocardial infarction
CPT/HCPCS: 36415; 71045; 80048; 80053; 80076; 80307; 81003; 83735; 83880; 84484; 85025; 85610; 86850; 86900; 86901; 93005; 93306; 94760; 96365; 96367; 96375; 99285; G0378; J0360; J1650; J1940

== ENCOUNTER 2019-07-05 14:05 | Emergency (ER) | payer SELFPAY ==
[2019-07-05] MEDS ORDERED: PROMETHAZINE INJ 25 MG/ML AMP ONE (15:10)
[2019-07-05] MEDS ORDERED: ONDANSETRON 4 MG/2 ML VIAL ONE (15:10)
[2019-07-05] MEDS ORDERED: MORPHINE 4 MG/ML SYR ONE ×3 (15:10→18:03)
[2019-07-05] MEDS ORDERED: NA CHLORIDE 0.9% 1,000 ML ONE ×2 (15:10→16:38)
[2019-07-05 15:23] LABS: Absolute Lymphocytes (CBC) 2.9 K/uL (0.7-4.9); Basophils % 0.9 % (0-1.3); Hematocrit 38.9 % (39.6-49.0); Lymphocytes % 34.5 % (15.3-44.8); MPV 10.4 fL (7.6-11.3); Protime INR 1.19
--- NOTE | 2019-07-05 15:27 | RAD REPORT ---
EXAM DESCRIPTION: RAD - Chest Single View - 07/05/2019 3:21 pm CLINICAL HISTORY: abdominal pain Chest pain. COMPARISON: Chest Single View dated 06/21/2019; Chest Single View dated 10/09/2018; CHEST SINGLE VIEW d ated 07/19/2012; CHEST SINGLE VIEW dated 05/07/2008 FINDINGS: Portable technique limits examination quality. Mild emphysematous changes are present throughout the lungs. The heart is mildly prominent size with a tortuous thoracic aorta. No displaced fractures. IMPRESSION: Mild COPD.
[2019-07-05 15:50] LABS: ALT/SGPT 20 U/L (12-78); Albumin 3.3 g/dL (3.4-5.0); Alkaline Phosphatase 118 U/L (45-117); BUN Blood Urea Nitrogen 18 mg/dL (7-18); Bicarbonate 26 mmol/L (21-32); Bilirubin Direct 0.1 mg/dL (0-0.2); Bilirubin Total 0.4 mg/dL (0.2-1.0); Glucose Level 104 mg/dL (74-106); Lipase 78 U/L (73-393); NT PRO-BNP 3705 pg/mL (<125); Protein, Total 7.1 g/dL (6.4-8.2); Sodium Level 140 mmol/L (136-145); Troponin (Emerg Dept Use Only) < 0.02 ng/mL (0.0-0.045)
[2019-07-05 15:52] LABS: AST/SGOT 32 U/L (15-37); Magnesium 2.4 mg/dL (1.8-2.4); Potassium 3.2 mmol/L (3.5-5.1)
[2019-07-05 16:15] LABS: Anisocytosis 1+; Blood Morphology Comment NOTED (NOT SEEN); Hypochromasia 2+; Platelet Estimate ADEQ; Urine White Blood Cell Casts OK
--- NOTE | 2019-07-05 16:21 | RAD REPORT ---
EXAM DESCRIPTION: CTAbdomen Pelvis W Contrast - 07/05/2019 4:07 pm CLINICAL HISTORY: Abdominal pain. Abd pain;Nausea / vomiting COMPARISON: No comparisons TECHNIQUE: Biphasic CT imaging of the abdomen and pelvis was performed with 100 ml non-ionic IV cont rast. All CT scans are performed using dose optimization technique as appropriate and may include automated exposure control or mA/KV adjustment according to patient size. FINDINGS: The lung bases are mildly emphysematous. There is evidence of air in the biliary tree as well as common bile duct. The gallbladder shows mild enhancing wall. No liver lesion is seen. The spleen, pancreas adrenal glands and kidneys are within normal limits. Sm all cyst is present superior right kidney. Mild ascites is noted. No bowel obstruction seen. No intra-abdominal abscess suspected. Mucosal thick ening and enhancement is seen involving the stomach and duodenum. The appendix is normal. No evidenc e of significant lymphadenopathy. Moderate lumbosacral degenerative changes. IMPRESSION: Pneumobilia is present as well as enhancement of the gallbladder wall. If the patient leija s not had a recent sphincterotomy, the findings could indicate ascending cholangitis. Gastroduodenal inflammatory enhancing findings are present suggesting gastroduodenitis. Upper endosco py could be obtained follow-up clinically indicated. Mild ascites.
[2019-07-05] MEDS ORDERED: PIPER/TAZO/NS 3.375gm 3.375 GM/100 ML BAG ONE ×2 (16:35→16:36)
--- NOTE | 2019-07-05 17:31 | RAD REPORT ---
EXAM DESCRIPTION: US - Abdomen Exam Limited - 07/05/2019 5:20 pm CLINICAL HISTORY: ABD PAIN COMPARISON: No comparisons FINDINGS: The gallbladder demonstrates small amount of sludge and overall appears distended. No dora cholecystic fluid or gallbladder wall thickening. The common bile duct is normal measuring 5 mm. The liver demonstrates no findings of intrahepatic biliary dilatation. IMPRESSION: Gallbladder sludge is present.
[2019-07-05] MEDS ORDERED: HYDRALAZINE HCL 20 MG/ML VIAL ONE ×2 (18:04→20:15)
[2019-07-05] MEDS ORDERED: HYDROMORPHONE HCL 1 MG/ML INJ ONE ×2 (18:07→20:50)
--- NOTE | 2019-07-05 18:16 | ER ---
Nurse's Notes [facility] Name: Blue Almazan Age: 63 yrs Sex: Male : 1955 Arrival Date: 07/05/2019 Time: 14:08 Bed 30 Private MD: Diagnosis: Cholangitis;Nausea and vomiting Presentation: 07/05 14:51 Presenting complaint: Patient states: low abd/suprapubic pain started an hour ago, sv denies n/v/d. Transition of care: patient was not received from another setting of care. Onset of symptoms was July 05, 2019. Risk Assessment: Do you want to hurt yourself or someone else? Patient reports no desire to harm self or others. Initial Sepsis Screen: Does the patient meet any 2 criteria? No. Patient's initial sepsis screen is negative. Does the patient have a suspected source of infection? No. Patient's initial sepsis screen is negative. Care prior to arrival: None. 14:51 Method Of Arrival: Wheelchair sv 14:51 Acuity: JAMMIE 3 sv Triage Assessment: 14:52 General: Appears distressed, uncomfortable, Behavior is agitated, fussy, restless, sv uncooperative. Pain: Complains of pain in suprapubic area Pain does not radiate. Pain currently is 10 out of 10 on a pain scale. Quality of pain is described as sharp, Pain began 1 hour ago. Is continuous, Noted to be agitated, grimacing, guarding, moaning, restless. Neuro: Level of Consciousness is awake, alert, obeys commands, Oriented to person, place, time, situation, Moves all extremities. Full function Speech is normal. Cardiovascular: Patient's skin is warm and dry. Respiratory: Airway is patent Respiratory effort is even, unlabored, Respiratory pattern is symmetrical, tachypnea. GI: Abdomen is flat, Reports "I think it was a hard stool this morning." Patient currently denies diarrhea, nausea, vomiting. Derm: Skin is normal. Historical: - Allergies: 14:52 Ibuprofen; sv 14:52 Tylenol; sv - Home Meds: 14:52 Methadone 100 mg Oral once daily [Active]; sv - PMHx: 14:52 Anemia; DRUG ADDICTION; Hypertension; sv - PSHx: 14:52 None; sv - Immunization history:: Adult Immunizations unknown. - Social history:: Smoking status: Patient reports the use of cigarette tobacco products, smokes one pack cigarettes per day. Patient/guardian denies using alcohol. - Ebola Screening: : No symptoms or risks identified at this time. Screenin:42 Abuse screen: unknown, pt refusing to answer some questions. Nutritional screening: sv unknown, pt refusing to answer all questions. Tuberculosis screening: unknown, pt refusing to answer some questions. Fall Risk No fall in past 12 months (0 pts). No secondary diagnosis (0 pts). IV access (20 points). Ambulatory Aid- None/Bed Rest/Nurse Assist (0 pts). Gait- Normal/Bed Rest/Wheelchair (0 pts) Mental Status- Oriented to own ability (0 pts). Total Carias Fall Scale indicates No Risk (0-24 pts). Assessment: 14:55 Reassessment: Asked pt if we could get him in the stretcher, for pt safety and to get sv him connected to the nurse monitoring. Pt complied and was able to ambulate to the stretcher from the wheelchair. 15:38 Reassessment: Pt stated that his pain has not improved and he now has left sided chest sv pain. Cardiovascular: Chest pain is described as diffuse, Pain is 10 out of 10 on a pain scale. quality is "hard" is located in left anterior chest wall radiates none began right now episodes are continuous Informed Jak OH, medication ordered and repeat EKG. 15:51 Reassessment: Pt repeatedly removes his BP cuff, informed pt that we must be able to sv monitor him. 17:27 Reassessment: Patient appears in no apparent distress at this time. Patient and/or sv family updated on plan of care and expected duration. Pain level reassessed. Patient is alert, oriented x 3, equal unlabored respirations, skin warm/dry/pink. 18:10 Reassessment: Patient appears in no apparent distress at this time. Patient and/or sv family updated on plan of care and expected duration. Pain level reassessed. Patient is alert, oriented x 3, equal unlabored respirations, skin warm/dry/pink. Pt requesting more pain medication, informed Jak OH, medication ordered. 18:43 Reassessment: Patient appears in no apparent distress at this time. Patient and/or sv family updated on plan of care and expected duration. Pain level reassessed. Patient is alert, oriented x 3, equal unlabored respirations, skin warm/dry/pink. 19:03 Reassessment: Attempted to call report to [facility], nurse unable to take sv report at this time. 19:56 Reassessment: Patient appears in no apparent distress at this time. Patient is alert, ca1 oriented x 3, equal unlabored respirations, skin warm/dry/pink. 20:09 Reassessment: Called report to Charmaine in [facility]. Reassessment: BP elevated. ca1 Notified ADRIANO Benedict. VO Hydralzine 10mg IV now. 20:10 GI: Bowel sounds present X 4 quads. Abd is soft X 4 quads. ca1 20:42 Reassessment: Patient appears in no apparent distress at this time. Patient is alert, ca1 oriented x 3, equal unlabored respirations, skin warm/dry/pink. Gave report EMS. Vital Signs: 14:52 Pulse 38; Resp 22; Temp 97.6; Pulse Ox 99% ; Weight 54.43 kg; Height 5 ft. 8 in. sv (172.72 cm); Pain 10/10; 14:55 Pulse 76 MON; sv 15:00 BP 257 / 77; sv 16:17 Pulse 84; Resp 20; Pulse Ox 99% ; sv 16:20 BP 158 / 92; sv 17:28 BP 235 / 65; Pulse 75; Resp 19; Pulse Ox 99% ; sv 18:29 BP 217 / 61; Pulse 82; Resp 19; Pulse Ox 100% ; sv 19:30 BP 209 / 64; Pulse 82; Resp 24; Pulse Ox 100% ; ca1 20:09 BP 223 / 70; Pulse 85; Resp 17 S; Pulse Ox 100% on R/A; ca1 20:42 BP 184 / 69; Pulse 88; Resp 17 S; Pulse Ox 99% on R/A; ca1 14:52 Body Mass Index 18.25 (54.43 kg, 172.72 cm) sv 14:55 Sinus Rhythm with Unifocal PVCs sv 14:52 Pt unable to stay still for BP to take,. sv ED Course: 14:08 Patient arrived in ED. rg4 14:45 Milana Mccormick, RN is Primary Nurse. sv 14:51 Triage completed. sv 14:52 [facility] cp 14:52 Josh Chaney MD is Attending Physician. cp 14:52 Arm band placed on. sv 14:52 Patient has correct armband on for positive identification. Bed in low position. Call sv light in reach. Adult w/ patient. Pulse ox on. NIBP on. Pt refusing to sit in the stretcher at this time. Door closed. Head of bed elevated. 14:55 Inserted saline lock: 18 gauge in left forearm, using aseptic technique. Blood sv collected. Flushed left forearm with 5 ml normal saline. 15:03 EKG completed in triage. Results shown to MD. ca1 15:11 EKG done, by bone density technician. reviewed by Jak OH. at1 15:18 X-ray(s) taken. sv 15:21 XRAY Chest (1 view) In Process Unspecified. EDMS 15:[address] Scan. sv 15:[address] via wheelchair. sv 16:07 CT Abd/Pelvis - IV Contrast Only In Process Unspecified. EDMS 16:[address] back from [address]. sv 16:12 Awaiting radiology results. sv 17:20 US Abdomen Limited: RUQ/epigastric In Process Unspecified. EDMS 17:30 Awaiting radiology results. sv 18:30 transfer approval from receiving facility. sv 19:04 Report given to Sheyla CLARK. sv 19:45 First set of blood cultures drawn by me. jp3 20:10 No provider procedures requiring assistance completed. Patient transferred, IV remains ca1 in place. Administered Medications: 15:05 Drug: NS 0.9% 1000 ml Route: IV; Rate: 1 bolus; Site: left forearm; sv 16:00 Follow up: IV Status: Completed infusion ca1 15:05 Drug: Zofran 4 mg Route: IVP; Site: left forearm; sv 15:40 Follow up: Response: No adverse reaction; Marked relief of symptoms sv 15:05 Drug: Phenergan 25 mg {Note: placed in the 1L NS per Jak OH.} Route: IVP; Site: sv left forearm; 15:40 Follow up: Response: No adverse reaction sv 15:07 Drug: morphine 4 mg {Note: RASS3.} Route: IVP; Site: left forearm; sv 15:40 Follow up: Response: No adverse reaction; No change in condition; Pain is unchanged, sv physician notified; RASS: Agitated (+2) 15:40 Drug: morphine 4 mg Route: IVP; Site: left forearm; sv 16:00 Follow up: Response: No adverse reaction; Marked relief of symptoms; RASS: Light sv sedation (-2) 17:27 Drug: NS 0.9% 1000 ml Route: IV; Rate: 125 ml/hr; Site: left forearm; sv 20:01 Follow up: Response: No adverse reaction; IV Status: Infusion continued upon transfer ca1 17:27 Drug: Zosyn 3.375 grams Route: IVPB; Infused Over: 60 mins; Site: left forearm; sv 18:40 Follow up: Response: No adverse reaction; IV Status: Completed infusion ca1 18:43 Follow up: Response: No adverse reaction; IV Status: Completed infusion; IV Intake: sv 100ml 18:12 Drug: Dilaudid 1 mg {Note: RASS2.} Route: IVP; Site: left forearm; sv 18:41 Follow up: Response: No adverse reaction; RASS: Restless (+1) sv 20:01 Follow up: Response: No adverse reaction; Pain is decreased; RASS: Alert and Calm (0) ca1 18:12 Drug: hydrALAZINE 10 mg Route: IV; Rate: calculated rate; Site: left forearm; sv 18:12 Follow up: Response: No adverse reaction; IV Status: Completed infusion; IV Intake: sv 0.5ml 18:41 Follow up: Response: Blood pressure is unchanged; IV Status: Completed infusion ca1 18:41 Drug: hydrALAZINE 10 mg Route: IV; Rate: calculated rate; Site: left forearm; sv 18:42 Follow up: Response: No adverse reaction; IV Status: Completed infusion; IV Intake: sv 0.5ml 20:16 Follow up: Response: No adverse reaction; Blood pressure is unchanged; IV Status: ca1 Completed infusion 19:44 Drug: Potassium Chloride 20 mEq Route: IV; Rate: calculated rate; Site: left ca1 antecubital; 20:02 Follow up: Response: No adverse reaction; IV Status: Infusion continued upon transfer ca1 20:15 Drug: hydrALAZINE 10 mg Route: IV; Rate: calculated rate; Site: left forearm; ca1 20:44 Follow up: Response: Blood pressure is lowered; IV Status: Completed infusion ca1 20:51 Drug: Dilaudid 1 mg {Note: RASS - 0.} Route: IVP; Site: left forearm; ca1 20:51 Follow up: Response: Administratered upon transfer ca1 Intake: 18:12 IV: 1ml; Total: 1ml. sv 18:42 IV: 1ml; Total: 1ml. sv 18:43 IV: 100ml; Total: 101ml. sv Outcome: 18:16 ER care complete, transfer ordered by . cp 20:52 Transferred by ground EMS to [facility], Transfer form completed. ca1 X-rays sent w/ patient. 20:52 Condition: stable 20:52 Instructed on the need for transfer. 20:52 Patient left the ED. ca1 Signatures: Dispatcher [employer] Milana Amato RN RN sv Sophia Frias, service cleaner EKG Tat1 Jak Matson PA PA cp Garcia, Rubi rg4 Armando Escalera jp3 Sheyla Branham RN RN ca1 Corrections: (The following items were deleted from the chart) 15:49 15:07 morphine 4 mg IVP in left forearm sv sv 17:30 17:28 Pulse 75bpm; Resp 19bpm; Pulse Ox 99%; sv sv 20:44 20:09 BP 223 / 70; ca1 ca1
--- NOTE | 2019-07-05 18:16 | EDPHYS ---
Physician Documentation [facility] Name: Blue Almazan Age: 63 yrs Sex: Male : 1955 Arrival Date: 07/05/2019 Time: 14:08 Bed 30 Private MD: ED Physician Josh Chaney HPI: 07/05 15:04 This 63 yrs old Male presents to ER via Wheelchair with complaints of cp Abdominal Pain. 15:04 The patient presents with abdominal pain that is diffuse. Onset: The symptoms/episode cp began/occurred suddenly, 1 hour(s) ago. The symptoms do not radiate. The symptoms are described as constant. 15:05 Associated signs and symptoms: Pertinent positives: chest pain, vomiting, Pertinent cp negatives: blood in stools, constipation, diarrhea, dysuria, fever, palpitations, vomiting blood. Historical: - Allergies: 14:52 Ibuprofen; sv 14:52 Tylenol; sv - Home Meds: 14:52 Methadone 100 mg Oral once daily [Active]; sv - PMHx: 14:52 Anemia; DRUG ADDICTION; Hypertension; sv - PSHx: 14:52 None; sv - Immunization history:: Adult Immunizations unknown. - Social history:: Smoking status: Patient reports the use of cigarette tobacco products, smokes one pack cigarettes per day. Patient/guardian denies using alcohol. - Ebola Screening: : No symptoms or risks identified at this time. ROS: 15:10 Constitutional: Negative for body aches, chills, fever. cp 15:10 Eyes: Negative for injury, pain, redness, and discharge. cp 15:10 ENT: Negative for drainage from ear(s), ear pain, sore throat, difficulty swallowing, difficulty handling secretions. 15:10 Cardiovascular: Positive for chest pain, Negative for edema, palpitations. 15:10 Respiratory: Negative for cough, shortness of breath, wheezing. 15:10 Abdomen/GI: Positive for abdominal pain, nausea and vomiting, Negative for diarrhea, constipation, hematemesis, black/tarry stool, rectal bleeding. 15:10 Back: Negative for pain at rest, pain with movement, radiated pain. 15:10 : Negative for urinary symptoms. 15:10 Skin: Negative for rash. 15:10 Neuro: Negative for altered mental status, headache, syncope, weakness. 15:10 All other systems are negative. Exam: 15:05 ECG was reviewed by the Attending Physician. cp 15:15 Constitutional: The patient appears in no acute distress, alert, awake, cp non-diaphoretic, non-toxic, well developed, well nourished, uncomfortable. 15:15 Head/Face: Normocephalic, atraumatic. cp 15:15 Eyes: Periorbital structures: appear normal, Conjunctiva: normal, no exudate, no injection, Sclera: no appreciated abnormality, Lids and lashes: appear normal, bilaterally. 15:15 ENT: External ear(s): are unremarkable, Nose: is normal, Mouth: Lips: moist, Oral mucosa: moist, Posterior pharynx: Airway: no evidence of obstruction, patent. 15:15 Chest/axilla: Inspection: normal, Palpation: crepitus, is not appreciated, tenderness, is not appreciated. 15:15 Cardiovascular: Rate: normal, Rhythm: regular, Edema: is not appreciated, JVD: is not appreciated. 15:15 Respiratory: the patient does not display signs of respiratory distress, Respirations: normal, no use of accessory muscles, no retractions, no splinting, no tachypnea, labored breathing, is not present, Breath sounds: are clear throughout, no decreased breath sounds, no stridor, no wheezing. 15:15 Abdomen/GI: Inspection: abdomen appears normal, Bowel sounds: active, all quadrants, Palpation: soft, in all quadrants, severe abdominal tenderness, in all quadrants, rebound tenderness, is not appreciated, voluntary guarding, is elicited in all quadrants. 15:15 Back: pain, is absent, ROM is normal. 15:15 Skin: no rash present. 15:15 Neuro: Orientation: to person, place \T\ time. Mentation: is normal, Motor: moves all fours, strength is normal, Sensation: is normal. Vital Signs: 14:52 Pulse 38; Resp 22; Temp 97.6; Pulse Ox 99% ; Weight 54.43 kg; Height 5 ft. 8 in. sv (172.72 cm); Pain 10/10; 14:55 Pulse 76 MON; sv 15:00 BP 257 / 77; sv 16:17 Pulse 84; Resp 20; Pulse Ox 99% ; sv 16:20 BP 158 / 92; sv 17:28 BP 235 / 65; Pulse 75; Resp 19; Pulse Ox 99% ; sv 18:29 BP 217 / 61; Pulse 82; Resp 19; Pulse Ox 100% ; sv 19:30 BP 209 / 64; Pulse 82; Resp 24; Pulse Ox 100% ; ca1 20:09 BP 223 / 70; Pulse 85; Resp 17 S; Pulse Ox 100% on R/A; ca1 20:42 BP 184 / 69; Pulse 88; Resp 17 S; Pulse Ox 99% on R/A; ca1 14:52 Body Mass Index 18.25 (54.43 kg, 172.72 cm) sv 14:55 Sinus Rhythm with Unifocal PVCs sv 14:52 Pt unable to stay still for BP to take,. sv MDM: 14:59 Patient medically screened. cp 18:00 Data reviewed: vital signs, nurses notes, lab test result(s), radiologic studies, CT cp scan, ultrasound, I have discussed the patient's presentation/case with the attending Emergency Department Physician;. 18:15 Physician consultation: was contacted at 18:10, regarding regarding transfer, patient's cp condition, DR Tomas, hospitalist \T\[facility], will accept patient as transfer and consult GI services. 07/05 15:01 Order name: Basic Metabolic Panel; Complete Time: 15:53 cp 07/05 15:53 Interpretation: Normal except: K 3.2; GFR 76; CA 8.4. cp 07/05 15:01 Order name: CBC with Diff; Complete Time: 16:23 cp 07/05 15:35 Interpretation: Reviewed. 07/05 15:01 Order name: LFT's; Complete Time: 15:53 cp 07/05 15:01 Order name: Magnesium; Complete Time: 15:53 cp 07/05 15:01 Order name: NT PRO-BNP; Complete Time: 15:53 cp 07/05 15:01 Order name: PT-INR; Complete Time: 15:53 cp 07/05 15:01 Order name: Troponin (emerg Dept Use Only); Complete Time: 15:53 cp 07/05 15:53 Interpretation: Reviewed. 07/05 15:01 Order name: XRAY Chest (1 view); Complete Time: 15:34 cp 07/05 15:01 Order name: Lipase; Complete Time: 15:53 cp 07/05 15:49 Order name: CT Abd/Pelvis - IV Contrast Only; Complete Time: 16:23 cp 07/05 16:16 Order name: CBC Smear Scan; Complete Time: 16:23 EDMS 07/05 16:32 Order name: US Abdomen Limited: RUQ/epigastric; Complete Time: 17:43 cp 07/05 17:44 Interpretation: Report reviewed. 07/05 18:33 Order name: Blood Culture Adult (2) cp 07/05 15:01 Order name: EKG; Complete Time: 15:02 07/05 15:01 Order name: Cardiac monitoring; Complete Time: 15:16 07/05 15:01 Order name: EKG - Nurse/Tech; Complete Time: 15:16 07/05 15:01 Order name: IV Saline Lock; Complete Time: 15:16 07/05 15:01 Order name: Labs collected and sent; Complete Time: 15:16 07/05 15:01 Order name: O2 Per Protocol; Complete Time: 15:16 07/05 15:01 Order name: O2 Sat Monitoring; Complete Time: 15:33 07/05 15:39 Order name: EKG - Nurse/Tech; Complete Time: 15:48 sv 07/05 16:58 Order name: Vital Signs: please update to include blood pressure; Complete Time: 17:27 07/05 19:36 Order name: NPO; Complete Time: 19:39 cp EC:05 Rate is 69 beats/min. Rhythm is regular. MN interval is normal. QRS interval is normal. cp QT interval is prolonged at 486 msec. Interpreted by me. Reviewed by me. Administered Medications: 15:05 Drug: NS 0.9% 1000 ml Route: IV; Rate: 1 bolus; Site: left forearm; sv 16:00 Follow up: IV Status: Completed infusion ca1 15:05 Drug: Zofran 4 mg Route: IVP; Site: left forearm; sv 15:40 Follow up: Response: No adverse reaction; Marked relief of symptoms sv 15:05 Drug: Phenergan 25 mg {Note: placed in the 1L NS per Jak P. PA.} Route: IVP; Site: sv left forearm; 15:40 Follow up: Response: No adverse reaction sv 15:07 Drug: morphine 4 mg {Note: RASS3.} Route: IVP; Site: left forearm; sv 15:40 Follow up: Response: No adverse reaction; No change in condition; Pain is unchanged, sv physician notified; RASS: Agitated (+2) 15:40 Drug: morphine 4 mg Route: IVP; Site: left forearm; sv 16:00 Follow up: Response: No adverse reaction; Marked relief of symptoms; RASS: Light sv sedation (-2) 17:27 Drug: NS 0.9% 1000 ml Route: IV; Rate: 125 ml/hr; Site: left forearm; sv 20:01 Follow up: Response: No adverse reaction; IV Status: Infusion continued upon transfer ca1 17:27 Drug: Zosyn 3.375 grams Route: IVPB; Infused Over: 60 mins; Site: left forearm; sv 18:40 Follow up: Response: No adverse reaction; IV Status: Completed infusion ca1 18:43 Follow up: Response: No adverse reaction; IV Status: Completed infusion; IV Intake: sv 100ml 18:12 Drug: Dilaudid 1 mg {Note: RASS2.} Route: IVP; Site: left forearm; sv 18:41 Follow up: Response: No adverse reaction; RASS: Restless (+1) sv 20:01 Follow up: Response: No adverse reaction; Pain is decreased; RASS: Alert and Calm (0) ca1 18:12 Drug: hydrALAZINE 10 mg Route: IV; Rate: calculated rate; Site: left forearm; sv 18:12 Follow up: Response: No adverse reaction; IV Status: Completed infusion; IV Intake: sv 0.5ml 18:41 Follow up: Response: Blood pressure is unchanged; IV Status: Completed infusion ca1 18:41 Drug: hydrALAZINE 10 mg Route: IV; Rate: calculated rate; Site: left forearm; sv 18:42 Follow up: Response: No adverse reaction; IV Status: Completed infusion; IV Intake: sv 0.5ml 20:16 Follow up: Response: No adverse reaction; Blood pressure is unchanged; IV Status: ca1 Completed infusion 19:44 Drug: Potassium Chloride 20 mEq Route: IV; Rate: calculated rate; Site: left ca1 antecubital; 20:02 Follow up: Response: No adverse reaction; IV Status: Infusion continued upon transfer ca1 20:15 Drug: hydrALAZINE 10 mg Route: IV; Rate: calculated rate; Site: left forearm; ca1 20:44 Follow up: Response: Blood pressure is lowered; IV Status: Completed infusion ca1 20:51 Drug: Dilaudid 1 mg {Note: RASS - 0.} Route: IVP; Site: left forearm; ca1 20:51 Follow up: Response: Administratered upon transfer ca1 Disposition: 07/05/19 18:16 Transfer ordered to [facility]. Diagnosis are Cholangitis, Nausea and vomiting. - Reason for transfer: Higher level of care. - Accepting physician is DR Tomas. - Condition is Stable. - Problem is new. - Symptoms have improved. Addendum: 07/07/2019 19:47 Co-signature as Attending Physician, Josh Chaney MD. r n Signatures: Dispatcher [employer] Milana Amato RN RN Josh Tobias MD MD rn Page, Corey, PA PA cp Acob, EDUARDO Carrion RN ca1 Corrections: (The following items were deleted from the chart) 07/05 15:53 15:53 Normal except: GFR 76. cp cp 15:53 15:53 Normal except: K 3.2. cp cp 15:53 15:53 Normal except: K 3.2; GFR 76; CRE 1.00. cp cp 18:52 18:16 07/05/2019 18:16 Transfer ordered to [facility]. cp Diagnosis is Cholangitis. Reason for transfer: Higher level of care. Accepting physician is doctor. Condition is Stable. Problem is new. Symptoms have improved. cp 20:51 15:04 Associated signs and symptoms: Pertinent negatives: blood in stools, chest pain, cp diarrhea, fever, testicular pain, vomiting, cp 20:52 18:52 07/05/2019 18:16 Transfer ordered to [facility]. ca1 Diagnosis is Cholangitis; Nausea and vomiting. Reason for transfer: Higher level of care. Accepting physician is DR Tomas. Condition is Stable. Problem is new. Symptoms have improved. cp
[2019-07-05] MEDS ORDERED: KCL 20 MEQ/100 mL IVPB 20 MEQ/100 ML BAG IV ONE (19:43)
[2019-07-05 21:14] VITALS: TEMP 97.6
[2019-07-05 21:24] VITALS: BP 184/69; O2SAT 99
--- NOTE | 2019-07-06 08:36 | EKG ---
Test Date: 2019-07-05 Test Time: 15:02:04 Fuel Testing Technician: ALEXANDER MEASUREMENT RESULTS: Intervals: Rate: 69 [place]: 118 QRSD: 86 QT: 486 QTc: 520 [place]: P: 75 NJ: 118 QRS: 62 T: 90 INTERPRETIVE STATEMENTS: Sinus rhythm with frequent premature ventricular complexes in a pattern of bigeminy Biatrial enlargement Left ventricular hypertrophy with repolarization abnormality Prolonged QT Abnormal ECG Compared to ECG 06/21/2019 10:20:11 Prolonged QT interval now present Electronically Signed On 07-06-19 08:35:07 SAMPLE TESTER GRINDER by Wero Sweeney
== END 2019-07-05 20:52 | disposition short-term general hospital (02) ==
LOC: ER 14:05
DX: K83.09 Other cholangitis (principal); R11.2 Nausea with vomiting, unspecified; I10 Essential (primary) hypertension; F19.21 Other psychoactive substance dependence, in remission; Z72.0 Tobacco use; Z88.6 Allergy status to analgesic agent
CPT/HCPCS: 36415; 71045; 74177; 76705; 80048; 80076; 83690; 83735; 83880; 84484; 85025; 85610; 87040; 93005; 96361; 96365; 96367; 96375; 99285; J0360; J1170; J2405; J2543; J2550; J7030; Q9967

== ENCOUNTER 2019-08-11 06:38 | Emergency (ER) | payer SELFPAY ==
--- OUTSIDE RECORDS SUMMARY | 2019-08-11 06:41 | XMS REPORT ---
:1955 [facility] [address] [place] [address] Care Team Providers Name Role Phone MEAGHAN VENTURA Unavailable Unavailable Problems This patient has no known problems. Allergies, Adverse Reactions, Alerts This patient has no known allergies or adverse reactions. Medications This patient has no known medications. Results Test Description Test Time Test Comments Text Results Atomic Results Result Comments BLOOD CULTURE 2019-07-12 10:01:00 Test Item Value Reference Range Comments CULTURE (BEAKER) (test rtet=4612) No growth in 5 days BLOOD [id number] 10:01:00 Test Item Value Reference Range Comments CULTURE (BEAKER) (test zqga=8234) No growth in 5 days CBC W/PLT COUNT & AUTO [id number] 13:50:00 Test Item Value Reference Range Comments WHITE BLOOD CELL COUNT 11.2 K/ L 3.5-10.5 (BEAKER) (test gfmp=666) RED BLOOD CELL COUNT (BEAKER) 3.99 M/ L 4.63-6.08 (test kmsa=765) HEMOGLOBIN (BEAKER) (test 7.8 GM/DL 13.7-17.5 cajl=931) HEMATOCRIT (BEAKER) (test 27.7 % 40.1-51.0 ryeh=344) MEAN CORPUSCULAR VOLUME 69.4 fL 79.0-92.2 (BEAKER) (test mulb=586) MEAN CORPUSCULAR HEMOGLOBIN 19.5 pg 25.7-32.2 (BEAKER) (test ckdw=671) MEAN CORPUSCULAR HEMOGLOBIN 28.2 GM/DL 32.3-36.5 CONC (BEAKER) (test jaop=651) RED CELL DISTRIBUTION WIDTH 19.8 % 11.6-14.4 (BEAKER) (test rldg=337) PLATELET COUNT (BEAKER) (test 187 K/CU MM 150-450 gtef=643) MEAN PLATELET VOLUME (BEAKER) Unable to report due to (test ssfd=444) abnormal Platelet population distribution. NUCLEATED RED BLOOD CELLS 0 /100 WBC 0-0 (BEAKER) (test joop=077) NEUTROPHILS RELATIVE PERCENT 83 % (BEAKER) (test cqfe=835) LYMPHOCYTES RELATIVE PERCENT 9 % (BEAKER) (test zwvl=661) MONOCYTES RELATIVE PERCENT 8 % (BEAKER) (test rzrv=570) EOSINOPHILS RELATIVE PERCENT 0 % (BEAKER) (test hefi=238) BASOPHILS RELATIVE PERCENT 0 % (BEAKER) (test zaix=986) NEUTROPHILS ABSOLUTE COUNT 9.26 K/ L 1.78-5.38 (BEAKER) (test oebx=032) LYMPHOCYTES ABSOLUTE COUNT 0.99 K/ L 1.32-3.57 (BEAKER) (test jpic=518) MONOCYTES ABSOLUTE COUNT 0.89 K/ L 0.30-0.82 (BEAKER) (test iiky=263) EOSINOPHILS ABSOLUTE COUNT 0.02 K/ L 0.04-0.54 (BEAKER) (test ebqc=695) BASOPHILS ABSOLUTE COUNT 0.01 K/ L 0.01-0.08 (BEAKER) (test sdys=917) IMMATURE GRANULOCYTES-RELATIVE 0 % 0-1 PERCENT (BEAKER) (test hxec=4427) U/S, ABDOMINAL, [id number] 10:42:00Abdomen limited area? Add comment if clarification is needed.->Gall BladderReason for exam:->rt sided abdominal pa inFINAL REPORT TECHNIQUE: Grayscale ultrasound of the right abdomen. INDICATION: 63-year-old man with right-sided abdominal pain. COMPARISON: None. FINDINGS: MIDLINE VASCULATURE: The visualized inferior vena cava is patent. Portal vein is patent. The maximum visualized aortic diameter is 2 cm. LIVER: The liver is normal in size and echogenicity with smooth contour. No focal lesions. BILIARY:Gallbladder: No gallstones or sludge. No gallbladder wall thickening, pericholecystic fluid, or distention. Negative sonographic Milian sign.Common bile duct is prominent and measures 0.9 cm in diameter. No intrahepatic biliary ductal dilatation. PANCREAS : Visualized portions of the pancreas are unremarkable. PERITONEUM: No free fluid. RIGHT KIDNEY: The right kidney is normal in size. No hydronephrosis. No sonographically evident solid mass lesion. IMPRESSION:Prominent common bile duct;obstructive process in the distal common bile duct cannot be excluded. This finding may be correlated with liver function tests to assess for cholestasis and the need for further evaluation with MRCP or ERCP. Signed: Piter Hernandez MDReport Verified Date/Time: 07/08/2019 10:42:44 Reading Location: [address] Body Reading Room [id number] 05:15:00 Test Item Value Reference Range Comments MAGNESIUM (BEAKER) (test svdv=758) 2.2 mg/dL 1.6-2.6 Boot Trimmer NAPOLEON Wu JENNIFER WBASIC METABOLIC [id number] 05:15:00 Test Item Value Reference Range Comments SODIUM (BEAKER) (test 140 meq/L 136-145 prhj=570) POTASSIUM (BEAKER) (test 4.1 meq/L 3.5-5.1 dmom=426) CHLORIDE (BEAKER) (test 108 meq/L 98-107 dcbz=955) CO2 (BEAKER) (test 24 meq/L 22-29 dmwi=716) BLOOD UREA NITROGEN 22 mg/dL 7-21 (BEAKER) (test peab=921) CREATININE (BEAKER) (test 0.87 mg/dL 0.57-1.25 amww=270) GLUCOSE RANDOM (BEAKER) 82 mg/dL 70-105 (test oiwm=913) CALCIUM (BEAKER) (test 8.2 mg/dL 8.4-10.2 iyiy=834) EGFR (BEAKER) (test 89 mL/min/1.73 sq m ESTIMATED GFR IS NOT fvrg=0987) ACCURATE CREATININE CLEARANCE IN PREDICTING GLOMERULAR FILTRATION RATE. ESTIMATED GFR IS NOT APPLICABLE FOR DIALYSIS PATIENTS. Boot Trimmer NAPOLEON Wu JENNIFER WCBC W/PLT COUNT & AUTO [id number] 15:16:00 Test Item Value Reference Range Comments WHITE BLOOD CELL COUNT 21.0 K/ L 3.5-10.5 (BEAKER) (test bqys=908) RED BLOOD CELL COUNT (BEAKER) 5.30 M/ L 4.63-6.08 (test jwvk=174) HEMOGLOBIN (BEAKER) (test 10.3 GM/DL 13.7-17.5 gjxi=511) HEMATOCRIT (BEAKER) (test 36.4 % 40.1-51.0 hcbc=499) MEAN CORPUSCULAR VOLUME 68.7 fL 79.0-92.2 (BEAKER) (test mzlx=353) MEAN CORPUSCULAR HEMOGLOBIN 19.4 pg 25.7-32.2 (BEAKER) (test kikp=989) MEAN CORPUSCULAR HEMOGLOBIN 28.3 GM/DL 32.3-36.5 CONC (BEAKER) (test xpzz=420) RED CELL DISTRIBUTION WIDTH 20.8 % 11.6-14.4 (BEAKER) (test nffj=319) PLATELET COUNT (BEAKER) (test 277 K/CU MM 150-450 zqdw=201) MEAN PLATELET VOLUME (BEAKER) Unable to report due to (test qaeg=281) abnormal Platelet population distribution. NUCLEATED RED BLOOD CELLS 0 /100 WBC 0-0 (BEAKER) (test mawe=009) (CELLAVISION MANUAL DIFF)2019-07-07 15:16:00 Test Item Value Reference Range Comments NEUTROPHILS - REL (CELLAVISION)(BEAKER) (test 89 % loig=0425) LYMPHOCYTES - REL (CELLAVISION)(BEAKER) (test 7 % bnjx=8560) MONOCYTES - REL (CELLAVISION)(BEAKER) (test 4 % qoip=1636) NEUTROPHILS - ABS (CELLAVISION)(BEAKER) (test 18.69 K/ul 1.78-5.38 hunk=4074) LYMPHOCYTES - ABS (CELLAVISION)(BEAKER) (test 1.47 K/ul 1.32-3.57 mgpi=2502) MONOCYTES - ABS (CELLAVISION)(BEAKER) (test 0.84 K/uL 0.30-0.82 dohi=3289) TOTAL COUNTED (BEAKER) (test xvnp=3094) 100 WBC MORPHOLOGY (BEAKER) (test xqhn=888) Normal PLT MORPHOLOGY (BEAKER) (test yyvr=470) Normal POLYCHROMATOPHILLIC RBCS(BEAKER) (test xvnj=353) 1+ few HYPOCHROMIA (BEAKER) (test rzzl=123) 1+ few ANISOCYTOSIS (BEAKER) (test toza=184) 2+ moderate MICROCYTES (BEAKER) (test rlrj=694) 2+ moderate MACROCYTES (BEAKER) (test nuth=926) 1+ few POIKILOCYTES (BEAKER) (test bryu=998) 2+ moderate TARGET CELLS (BEAKER) (test plms=943) 1+ few STACEY CELLS (BEAKER) (test bhpq=742) 1+ few ARTIFACT (CELLAVISION)(BEAKER) (test tcbg=1739) Present PLATELET CONCENTRATION (CELLAVISION)(BEAKER) Adequate (test hqjc=2076) Boot Trimmer ID - [id number] ID - Jackeline Loki comments: Slide comments: LACTIC ACID, [id number] 09:57:00 Test Item Value Reference Range Comments LACTATE BLOOD VENOUS (2) (BEAKER) (test 1.0 mmol/L 0.5-2.2 bhem=3039) Boot Trimmer ID - AMANDA [id number] 06:59:00 Test Item Value Reference Range Comments MAGNESIUM (BEAKER) (test ewvm=815) 2.2 mg/dL 1.6-2.6 Boot Trimmer ID - AMANDA MBASIC METABOLIC [id number] 06:59:00 Test Item Value Reference Range Comments SODIUM (BEAKER) (test 138 meq/L 136-145 vbaq=599) POTASSIUM (BEAKER) (test 3.4 meq/L 3.5-5.1 pabf=637) CHLORIDE (BEAKER) (test 101 meq/L 98-107 yokq=093) CO2 (BEAKER) (test 26 meq/L 22-29 efvz=389) BLOOD UREA NITROGEN 31 mg/dL 7-21 (BEAKER) (test npbk=444) CREATININE (BEAKER) (test 1.29 mg/dL 0.57-1.25 nwby=014) GLUCOSE RANDOM (BEAKER) 72 mg/dL 70-105 (test eooo=728) CALCIUM (BEAKER) (test 8.9 mg/dL 8.4-10.2 drzk=331) EGFR (BEAKER) (test 57 mL/min/1.73 sq m ESTIMATED GFR IS NOT tacn=8893) ACCURATE CREATININE CLEARANCE IN PREDICTING GLOMERULAR FILTRATION RATE. ESTIMATED GFR IS NOT APPLICABLE FOR DIALYSIS PATIENTS. Boot Trimmer ID - AMANDA EPATIC FUNCTION [id number] 06:59:00 Test Item Value Reference Range Comments TOTAL PROTEIN (BEAKER) (test zbhm=262) 6.7 gm/dL 6.0-8.3 ALBUMIN (BEAKER) (test gnmw=7915) 3.3 g/dL 3.5-5.0 BILIRUBIN TOTAL (BEAKER) (test qjvj=479) 1.1 mg/dL 0.2-1.2 BILIRUBIN DIRECT (BEAKER) (test unsb=819) 0.6 mg/dL 0.1-0.5 ALKALINE PHOSPHATASE (BEAKER) (test kekf=811) 81 U/L 40-150 AST (SGOT) (BEAKER) (test vbpw=384) 26 U/L 5-34 ALT (SGPT) (BEAKER) (test eyvt=801) 14 U/L 6-55 Boot Trimmer ID - AMANDA MB-TYPE NATRIURETIC FACTOR (BNP)2019-07-07 06:47:00 Test Item Value Reference Range Comments B-TYPE NATRIURETIC PEPTIDE (BEAKER) (test bljn=101) 99 pg/mL 0-100 Boot Trimmer ID - AMANDA MRAD, ABDOMEN/KUB, 1 VIEW [id number] 22:57:00Reason for exam:->abdominal painShould this be performed at the bedside?->YesFINAL REPORT Abdomen dated July 06, 2019 Comment:Abdomen was examined in the supine and erect position. Air is seen in the small and large bowel without dilatation to suggestmechanical obstruction or ileus. Large amount fecal material is seen in the large bowel and rectum suggestive of constipation. No mass, pathological calcification, or free air is present. Impression:Findings suggestive of constipation. Signed: Phuong Du MDReport Verified Date/Time: 07/06/2019 22:57:23 Reading Location: [address] Consult Reading Room 10: 57 PMRAD, CHEST, 1 VIEW, NON [id number] 18:12:00Reason for exam:-> dyspneaShould this be performed at the bedside?->YesFINAL REPORT AP chest dated 07/06/2019 Comment: Heart is enlarged. Pulmonary vasculature is unremarkable. Lungs are clear. No pulmonary infiltrate or pleural effusion. Impression:Cardiomegaly without pulmonary edema. Signed: Phuong Du MDReport Verified Date/Time: 07/06/2019 18:12:22 Reading Location: [facility] B1 C013W Consult Reading Room CBC W/PLT COUNT & AUTO [id number] 02:10:00 Test Item Value Reference Range Comments WHITE BLOOD CELL COUNT 16.1 K/ L 3.5-10.5 (BEAKER) (test ovqe=418) RED BLOOD CELL COUNT (BEAKER) 6.50 M/ L 4.63-6.08 (test vqgz=314) HEMOGLOBIN (BEAKER) (test 12.6 GM/DL 13.7-17.5 rfmu=687) HEMATOCRIT (BEAKER) (test 45.5 % 40.1-51.0 sqjq=685) MEAN CORPUSCULAR VOLUME 70.0 fL 79.0-92.2 (BEAKER) (test swrl=359) MEAN CORPUSCULAR HEMOGLOBIN 19.4 pg 25.7-32.2 (BEAKER) (test zcca=697) MEAN CORPUSCULAR HEMOGLOBIN 27.7 GM/DL 32.3-36.5 CONC (BEAKER) (test afyn=805) RED CELL DISTRIBUTION WIDTH 21.5 % 11.6-14.4 (BEAKER) (test ccwd=638) PLATELET COUNT (BEAKER) (test 297 K/CU MM 150-450 eorw=708) MEAN PLATELET VOLUME (BEAKER) Unable to report due to (test xdxu=098) abnormal Platelet population distribution. NUCLEATED RED BLOOD CELLS 0 /100 WBC 0-0 (BEAKER) (test nsov=662) NEUTROPHILS RELATIVE PERCENT 93 % (BEAKER) (test dtdj=076) LYMPHOCYTES RELATIVE PERCENT 3 % (BEAKER) (test kuek=150) MONOCYTES RELATIVE PERCENT 4 % (BEAKER) (test hdsg=158) EOSINOPHILS RELATIVE PERCENT 0 % (BEAKER) (test updy=346) BASOPHILS RELATIVE PERCENT 0 % (BEAKER) (test orrq=503) NEUTROPHILS ABSOLUTE COUNT 14.98 K/ L 1.78-5.38 (BEAKER) (test yxnv=394) LYMPHOCYTES ABSOLUTE COUNT 0.52 K/ L 1.32-3.57 (BEAKER) (test hokb=027) MONOCYTES ABSOLUTE COUNT 0.56 K/ L 0.30-0.82 (BEAKER) (test hxkh=934) EOSINOPHILS ABSOLUTE COUNT 0.00 K/ L 0.04-0.54 (BEAKER) (test uueg=164) BASOPHILS ABSOLUTE COUNT 0.02 K/ L 0.01-0.08 (BEAKER) (test xyvj=664) IMMATURE GRANULOCYTES-RELATIVE 0 % 0-1 PERCENT (BEAKER) (test mdlh=0484) TROPONIN [id number] 02:05:00 Test Item Value Reference Range Comments TROPONIN I (BEAKER) (test cyee=851) 0.02 ng/mL 0.00-0.03 Troponin I (TnI) levels must be interpreted in the context of the presenting symptoms and the clinical findings. Elevated TnI levels indicate myocardial damage, but are not specific for ischemic heart disease. Elevated TnI levels are seen in patients with other cardiac conditions (including myocarditis and congestive heart failure), and slight TnI elevations occur in patients with other conditions, including sepsis, renal failure, acidosis, acute neurological disease, and persistent tachyarrhythmia.Boot Trimmer ID - CATRINA BPROTHROMBIN TIME/ [id number] 02:05:00 Test Item Value Reference Range Comments PROTIME (BEAKER) (test tcnk=859) 15.2 seconds 11.9-14.2 INR (BEAKER) (test ncjy=521) 1.2 <=5.9 Effective 11/08/2018: PT Reference Range ChangeNew: 11.9-14.2 Previous: 11.7- 14.7RECOMMENDED COUMADIN/WARFARIN INR THERAPY RANGESSTANDARD DOSE: 2.0-3.0 Includes: PROPHYLAXIS for venous thrombosis, systemic embolization; TREATMENT for venous thrombosis and/or pulmonary embolus.HIGH RISK: Target INR is2.5-3.5 for patients wiht mechanical heart valves.[id number] 02:02:00 Test Item Value Reference Range Comments LIPASE (BEAKER) (test rnif=047) 85 U/L 8-78 Boot Trimmer ID - CATRINA BBASIC METABOLIC [id number] 02:02:00 Test Item Value Reference Range Comments SODIUM (BEAKER) (test 141 meq/L 136-145 qpzf=576) POTASSIUM (BEAKER) (test 3.6 meq/L 3.5-5.1 rfdr=951) CHLORIDE (BEAKER) (test 107 meq/L 98-107 fgel=019) CO2 (BEAKER) (test 25 meq/L 22-29 yufa=993) BLOOD UREA NITROGEN 15 mg/dL 7-21 (BEAKER) (test nnng=164) CREATININE (BEAKER) (test 0.76 mg/dL 0.57-1.25 cygl=000) GLUCOSE RANDOM (BEAKER) 90 mg/dL 70-105 (test ptqi=091) CALCIUM (BEAKER) (test 8.8 mg/dL 8.4-10.2 xesr=880) EGFR (BEAKER) (test 104 mL/min/1.73 sq m ESTIMATED GFR IS NOT oozl=3296) ACCURATE CREATININE CLEARANCE IN PREDICTING GLOMERULAR FILTRATION RATE. ESTIMATED GFR IS NOT APPLICABLE FOR DIALYSIS PATIENTS. Boot Trimmer ID - CATRINA EPATIC FUNCTION [id number] 02:02:00 Test Item Value Reference Range Comments TOTAL PROTEIN (BEAKER) (test cgjr=321) 6.8 gm/dL 6.0-8.3 ALBUMIN (BEAKER) (test yljo=0443) 3.6 g/dL 3.5-5.0 BILIRUBIN TOTAL (BEAKER) (test psib=217) 0.7 mg/dL 0.2-1.2 BILIRUBIN DIRECT (BEAKER) (test vupj=256) 0.5 mg/dL 0.1-0.5 ALKALINE PHOSPHATASE (BEAKER) (test strc=466) 96 U/L 40-150 AST (SGOT) (BEAKER) (test vsxg=848) 21 U/L 5-34 ALT (SGPT) (BEAKER) (test xosx=535) 11 U/L 6-55 Boot Trimmer ID - CATRINA B
[2019-08-11 07:23] LABS: Protime INR 1.06
[2019-08-11 07:32] LABS: Basophils % 0.4 % (0-1.3); Hematocrit 22.8 % (39.6-49.0); Lymphocytes % 8.7 % (15.3-44.8); MPV 10.9 fL (7.6-11.3); RBC Red Blood Cell Count 3.43 M/uL (4.33-5.43)
[2019-08-11 07:42] LABS: ALT/SGPT 21 U/L (12-78); AST/SGOT 103 U/L (15-37); Alkaline Phosphatase 92 U/L (45-117); BUN Blood Urea Nitrogen 13 mg/dL (7-18); Bicarbonate 26 mmol/L (21-32); Bilirubin Direct < 0.1 mg/dL (0-0.2); Bilirubin Total 0.4 mg/dL (0.2-1.0); Glucose Level 134 mg/dL (74-106); NT PRO-BNP 5026 pg/mL (<125); Potassium 3.7 mmol/L (3.5-5.1); Protein, Total 6.9 g/dL (6.4-8.2); Sodium Level 141 mmol/L (136-145)
[2019-08-11] MEDS ORDERED: HYDROCORTISONE SUC 100 MG INJ ONE (07:58)
[2019-08-11] MEDS ORDERED: DIPHENHYDRAMINE 50 MG/ML VIAL ONE (07:59)
[2019-08-11] MEDS ORDERED: NICOTINE 21 MG/PAT TD ONE (07:59)
[2019-08-11] MEDS ORDERED: WATER FOR INJ,STERILE 10 ML ONE (07:59)
[2019-08-11] MEDS ORDERED: MORPHINE 4 MG/ML SYR ONE (08:07)
[2019-08-11] MEDS ORDERED: ONDANSETRON 4 MG/2 ML VIAL ONE (08:09)
[2019-08-11] MEDS ORDERED: PANTOPRAZOLE 40 MG INJ ONE (08:09)
[2019-08-11] MEDS ORDERED: NA CHLORIDE 0.9% 250 ML ONE ×2 (08:45→12:13)
[2019-08-11] MEDS ORDERED: PANTOPRAZOLE INJ 80 MG in NA CHLORIDE 0.9% 250 ML IV SCH (09:00)
--- NOTE | 2019-08-11 09:48 | RAD REPORT ---
EXAM DESCRIPTION: CTAbdomen Pelvis W Contrast - 08/11/2019 8:24 am CLINICAL HISTORY: Abdominal pain. GI BLEED COMPARISON: Abdomen Pelvis W Contrast dated 07/05/2019 TECHNIQUE: Biphasic CT imaging of the abdomen and pelvis was performed with 100 ml non-ionic IV cont rast. All CT scans are performed using dose optimization technique as appropriate and may include automated exposure control or mA/KV adjustment according to patient size. FINDINGS: The lung bases are clear. The liver demonstrates pneumobilia in a left lobe. The degree of pneumobilia is mildly reduced since comparative study. No solid liver mass. The gallbladder appears distended. The spleen, pancreas and a drenal glands are within normal limits. Bilateral renal cysts are present, unchanged. Small calcifica tion is seen within right-sided cyst or caliceal diverticulum superiorly and anteriorly. No bowel obstruction, free air, free fluid or abscess. Moderate stool is present throughout the colon . The appendix is normal. No evidence of significant lymphadenopathy. Lumbosacral degenerative changes are seen. IMPRESSION: No acute intra-abdominal or pelvic finding. Moderate fecal retention. Pneumobilia appears slightly improved.
--- NOTE | 2019-08-11 10:00 | ER ---
Nurse's Notes [facility] Name: Blue Almazan Age: 63 yrs Sex: Male : 1955 Arrival Date: 08/11/2019 Time: 06:43 Bed 19 Private MD: Diagnosis: Gastrointestinal hemorrhage, unspecified;Elevated troponin;Chest pain, unspecified;Anemia, unspecified Presentation: 06:55 Chief complaint: Patient states: STARTED WITH BLACK STOOLS COUPLE OF DAYS AGO AND ENDED rv COUPLE OF DAYS AGO. SINCE THEN STARTED HAVING SHARP CONTINUOUS CHEST PAIN, 01/20. DENIES ANY SOB, SWEATING, OR FEVER. Coronavirus screen: The patient has NOT traveled to [place] in the past 14 days. Proceed with normal triage procedures. The patient has NOT had contact with known and/or suspected case of Coronavirus. Proceed with normal triage procedures. Ebola Screen: No symptoms or risks identified at this time. Initial Sepsis Screen: Does the patient meet any 2 criteria? No. Patient's initial sepsis screen is negative. Does the patient have a suspected source of infection? No. Patient's initial sepsis screen is negative. Risk Assessment: Do you want to hurt yourself or someone else? Patient reports no desire to harm self or others. 06:55 Method Of Arrival: Ambulatory rv 06:55 Acuity: JAMMIE 3 rv Historical: - Allergies: 07:00 Ibuprofen; rv 07:00 Tylenol; rv - Home Meds: 07:00 Methadone 100 mg Oral once daily [Active]; rv - PMHx: 07:00 Anemia; DRUG ADDICTION; Hypertension; rv - PSHx: 07:00 None; rv - Immunization history:: Adult Immunizations up to date. - Social history:: Smoking status: Patient reports the use of cigarette tobacco products, smokes one pack cigarettes per day. Screenin:10 Abuse screen: Denies threats or abuse. Nutritional screening: No deficits noted. em Tuberculosis screening: No symptoms or risk factors identified. Fall Risk None identified. Assessment: 07:10 General: Appears in no apparent distress. comfortable, Behavior is calm, cooperative, em Denies fever. Pain: Complains of pain in mid-sternal area Pain does not radiate. Pain began 2-3 days ago. Neuro: Level of Consciousness is awake, alert, obeys commands, Oriented to person, place, time, situation, Appropriate for age. Cardiovascular: Reports chest pain, Denies diaphoresis, nausea, shortness of breath, vomiting, Heart tones S1 S2 present Capillary refill < 3 seconds Patient's skin is warm and dry. Rhythm is sinus rhythm. Respiratory: Airway is patent Respiratory effort is even, unlabored, Respiratory pattern is regular, symmetrical, Breath sounds are clear bilaterally. GI: Reports bloody stool. Derm: Skin is intact, is healthy with good turgor, Skin is dry, Skin is pale, Skin temperature is warm. Musculoskeletal: Capillary refill < 3 seconds, Range of motion: intact in all extremities. 07:56 Reassessment: HGB 6.6 \T\ HCT 22.8, signed blood transfusion consent form, pending blood em products from lab. 08:00 Reassessment: Patient appears in no apparent distress at this time. rates chest pain as em constant and throbbing, rates 4/10, provider notified. 08:30 Reassessment: Patient appears in no apparent distress at this time. Patient and/or em family updated on plan of care and expected duration. Pain level reassessed. Patient denies pain at this time. Patient states feeling better. 09:15 Reassessment: Patient appears in no apparent distress at this time. blood products em double checked with EDUARDO Baldwin. blood transfusion initiated Patient denies pain at this time. 10:00 Reassessment: Patient appears in no apparent distress at this time. Patient and/or em family updated on plan of care and expected duration. Pain level reassessed. Patient denies pain at this time. Patient states feeling better. 10:45 Reassessment: Patient appears in no apparent distress at this time. Patient and/or em family updated on plan of care and expected duration. Pain level reassessed. pending acceptance from facility Patient denies pain at this time. 11:39 Reassessment: Patient appears in no apparent distress at this time. 1 st blood em transfusion completed. 11:49 Reassessment: Patient appears in no apparent distress at this time. report given to rob Cueva RN at [facility]. 12:15 Reassessment: blood products double checked with EDUARDO Baldwin. 2 nd blood transfusion em initiated. 12:33 Reassessment: [facility]. em Vital Signs: 06:55 BP 150 / 62; Pulse 71; Resp 17; Temp 98.9; Pulse Ox 100% ; Weight 54.43 kg; Height 5 rv ft. 8 in. (172.72 cm); Pain 8/10; 07:45 BP 177 / 80; Pulse 66; Resp 18 S; Pulse Ox 99% on R/A; Pain 4/10; em 08:30 BP 147 / 63; Pulse 57; Resp 18; Pulse Ox 100% on R/A; Pain 0/10; em 09:10 BP 131 / 66; Pulse 54; Resp 16; Temp 99.0; Pulse Ox 99% on R/A; Pain 0/10; em 09:10 em 12:10 BP 139 / 61; Pulse 51; Resp 18; Temp 99.1; Pulse Ox 98% on R/A; Pain 0/10; em 12:10 em 06:55 Body Mass Index 18.25 (54.43 kg, 172.72 cm) rv 09:10 please see blood transfusion flow sheet em 12:10 please see blood transfusion flow sheet em ED Course: 06:43 Patient arrived in ED. ag3 06:50 Lenny Rice NP is PHCP. pm1 06:50 Teodroo Lambert MD is Attending Physician. pm1 06:59 Triage completed. rv 07:01 Randal Roy, RN is Primary Nurse. em 07:02 Arm band placed on Patient placed in the treatment room, on a stretcher, Patient rv notified of wait time. 07:10 teletypesetter monitor on. Pulse ox on. NIBP on. em 07:10 Patient has correct armband on for positive identification. Placed in gown. Bed in low em position. Call light in reach. Side rails up X2. 07:10 Initial lab(s) drawn, by me, sent to lab. Inserted saline lock: 20 gauge in right em antecubital area, using aseptic technique. Blood collected. 07:10 Patient maintains SpO2 saturation greater than 95% on room air. em 07:20 XRAY Chest (1 view) In Process Unspecified. EDMS 08:24 CT Abd/Pelvis - IV Contrast Only In Process Unspecified. EDMS 08:24 CT completed. Patient tolerated procedure well. Patient moved back from CT. mw3 08:37 Inserted saline lock: 20 gauge in left forearm, using aseptic technique. em 09:56 Called [facility] transfer center and spoke with Pipe Suh to initiate transfer. [address] on internal disaster divert for everything except active STEMI and stroke. 10:00 Called [email or web address] [place] [facility] to initiate a transfer. Spoke with Heraclio Huggins. [facility] 10:06 [facility] [[email or web address] called to indicate they are at ICU capacity. Spoke with Heraclio Huggins. [facility] 10:12 Called [facility] to initiate a transfer. Spoke with Kristina Finney. [facility] 10:16 [facility] called to indicate that ICU department at capacity. Spoke with Kristina [facility] Reg. 10:19 Called [facility] to initiate transfer to [facility]. [facility] Spoke with Kristina Finney. 10:[address] Villarreal to Lenny MCCALLUM for pt transfer consultation. [facility] 10:59 Admin approval received by Geovanny Casey RN from [facility] ICU. [facility] Accepting Physician Dr. Олег Oswald Report to be called to [phone]. 12:42 No provider procedures requiring assistance completed. Patient transferred, IV remains em in place. Administered Medications: 08:14 Drug: Zofran (Ondansetron) 4 mg Route: IVP; Site: right antecubital; em 08:30 Follow up: Response: No adverse reaction em 08:16 Drug: morphine 4 mg Route: IVP; Site: right antecubital; em 08:30 Follow up: Response: No adverse reaction; Marked relief of symptoms; Pain is decreased em 08:38 Drug: ProTONIX 40 mg Route: IVP; Site: left forearm; em 09:10 Follow up: Response: No adverse reaction em 08:46 Drug: ProTONIX 8 mg/hr Route: IV; Rate: 25 ml/hr; Site: left forearm; em 12:45 Follow up: IV Status: Infusion continued upon transfer em 09:08 Drug: Benadryl 12.5 mg Route: IVP; Site: right antecubital; em 09:30 Follow up: Response: No adverse reaction em 09:09 Drug: Solu-CORTEF 50 mg Route: IVP; Site: right antecubital; em 09:30 Follow up: Response: No adverse reaction em Outcome: 09:59 ER care complete, transfer ordered by . pm1 12:42 Transferred by ground EMS to [facility], Transfer form completed. X-rays sent em w/ patient. 12:42 Condition: stable 12:42 Instructed on the need for transfer, Demonstrated understanding of instructions. 12:45 Patient left the ED. em Signatures: Dispatcher [employer] Randal Freitas, RN RN em Lenny Rice, JAVA APPLICATION ENGINEER JAVA APPLICATION ENGINEER pm1 Senait Villalta mw3 Christophe Ovalle RN RN Maki Rousseau 3 Slade Vargas [facility] Corrections: (The following items were deleted from the chart) 08:18 07:10 Derm: Skin is intact, is healthy with good turgor, Skin is pink, warm \T\ dry. em em 11:11 10:59 Admin approval received by Geovanny Casey RN from [facility]. [facility] Accepting Physician Dr. Олег Oswald [facility] 12:40 11:49 Reassessment: Patient appears in no apparent distress at this time. report given em to EDUARDO Cueva at [facility] em 12:41 09:15 Reassessment: Patient appears in no apparent distress at this time. blood em products double checked with EDUARDO Baldwin. blood transfusion initiated Patient denies pain at this time. em
--- NOTE | 2019-08-11 10:00 | EDPHYS ---
Physician Documentation [facility] Name: Blue Almazan Age: 63 yrs Sex: Male : 1955 Arrival Date: 08/11/2019 Time: 06:43 Bed 19 Private MD: ED Physician Teodoro Lambert HPI: 07:06 This 63 yrs old Male presents to ER via Ambulatory with complaints of Chest pm1 Pain. 07:06 The patient or guardian reports chest pain that is located primarily in the xyphoid pm1 area. Onset: 2 day(s) ago. The pain does not radiate. Associated signs and symptoms: Pertinent positives: abdominal pain, shortness of breath, dark stool, Pertinent negatives: nausea, vomiting. The chest pain is described as sharp. Duration: The patient or guardian reports a single episode, that is still ongoing, constant pain. Modifying factors: The symptoms are alleviated by nothing. the symptoms are aggravated by nothing. Severity of pain: in the emergency department the pain chest pain 8/10 and abdominal pain 2-3/10. Patient presents to the ER with complaints of chest pain that started 2 days ago. Patient reports black, dark stool for 2-3 days prior to onset of his chest pain. The stool was soft and solid per patient. No diarrhea. He has not had a bowel movement in the past 2 days. Historical: - Allergies: 07:00 Ibuprofen; rv 07:00 Tylenol; rv - Home Meds: 07:00 Methadone 100 mg Oral once daily [Active]; rv - PMHx: 07:00 Anemia; DRUG ADDICTION; Hypertension; rv - PSHx: 07:00 None; rv - Immunization history:: Adult Immunizations up to date. - Social history:: Smoking status: Patient reports the use of cigarette tobacco products, smokes one pack cigarettes per day. ROS: 07:06 Eyes: Negative for injury, pain, redness, and discharge, ENT: Negative for injury, pm1 pain, and discharge, Neck: Negative for injury, pain, and swelling. 07:06 Back: Negative for injury and pain, : Negative for injury, bleeding, discharge, and swelling, MS/Extremity: Negative for injury and deformity, Skin: Negative for injury, rash, and discoloration. 07:06 Constitutional: Positive for poor PO intake, weight loss, Negative for fever. 07:06 Cardiovascular: Positive for chest pain, Negative for edema, palpitations. 07:06 Respiratory: Positive for shortness of breath, Negative for cough, sputum production, wheezing. 07:06 Abdomen/GI: Positive for abdominal pain, black/tarry stool, Negative for nausea, vomiting, diarrhea. 07:06 Neuro: Positive for Generalized weakness, Negative for dizziness, numbness, tingling. Exam: 07:06 Constitutional: This is a well developed, well nourished patient who is awake, alert, pm1 and in no acute distress. Head/Face: Normocephalic, atraumatic. 07:06 ENT: Nares patent. No nasal discharge, no septal abnormalities noted. Tympanic membranes are normal and external auditory canals are clear. Oropharynx with no redness, swelling, or masses, exudates, or evidence of obstruction, uvula midline. Mucous membranes moist. Neck: Trachea midline, no thyromegaly or masses palpated, and no cervical lymphadenopathy. Supple, full range of motion without nuchal rigidity, or vertebral point tenderness. No Meningismus. Chest/axilla: Normal chest wall appearance and motion. Nontender with no deformity. No lesions are appreciated. Cardiovascular: Regular rate and rhythm with a normal S1 and S2. No gallops, murmurs, or rubs. Normal PMI, no JVD. No pulse deficits. Respiratory: Lungs have equal breath sounds bilaterally, clear to auscultation and percussion. No rales, rhonchi or wheezes noted. No increased work of breathing, no retractions or nasal flaring. 07:06 Back: No spinal tenderness. No costovertebral tenderness. Full range of motion. 07:06 MS/ Extremity: Pulses equal, no cyanosis. Neurovascular intact. Full, normal range of motion. 07:06 Eyes: Extraocular movements: intact throughout, Conjunctiva: pale, bilaterally. 07:06 Abdomen/GI: Inspection: abdomen appears normal, Bowel sounds: normal, Palpation: abdomen is soft and non-tender, in all quadrants, mass, is not appreciated, rebound tenderness, is not appreciated. 07:06 Skin: Appearance: normal except for affected area, Color: pale. 07:06 Neuro: Orientation: is normal, Motor: is normal, moves all fours. 07:24 Abdomen/GI: Rectal exam: rectal tone normal, Stool: guaiac positive, black, soft, pm1 hemorrhoid(s), external, without bleeding, without inflammation, without thrombosis, without pain, Randal RN. Vital Signs: 06:55 BP 150 / 62; Pulse 71; Resp 17; Temp 98.9; Pulse Ox 100% ; Weight 54.43 kg; Height 5 rv ft. 8 in. (172.72 cm); Pain 8/10; 07:45 BP 177 / 80; Pulse 66; Resp 18 S; Pulse Ox 99% on R/A; Pain 4/10; em 08:30 BP 147 / 63; Pulse 57; Resp 18; Pulse Ox 100% on R/A; Pain 0/10; em 09:10 BP 131 / 66; Pulse 54; Resp 16; Temp 99.0; Pulse Ox 99% on R/A; Pain 0/10; em 09:10 em 12:10 BP 139 / 61; Pulse 51; Resp 18; Temp 99.1; Pulse Ox 98% on R/A; Pain 0/10; em 12:10 em 06:55 Body Mass Index 18.25 (54.43 kg, 172.72 cm) rv 09:10 please see blood transfusion flow sheet em 12:10 please see blood transfusion flow sheet em MDM: 06:58 Patient medically screened. pm1 09:49 Data reviewed: vital signs. Data interpreted: Pulse oximetry: on room air is 99 %. pm1 Interpretation: normal. 09:49 Medication response: Patient reports chest and abdominal pain are 0. Resolution of pain pm1 since administration of morphine. 09:52 Counseling: I had a detailed discussion with the patient and/or guardian regarding: the pm1 historical points, exam findings, and any diagnostic results supporting the discharge/admit diagnosis, lab results, radiology results, the need to transfer to another facility, [facility] does not immediately have the required specialist, No GI available. 09:54 ED course: [facility] on diversion, only taking STEMI and Strokes at the pm1 moment . 10:07 ED course: [facility] at capacity for ICU. pm1 10:47 Physician consultation: ICU Melter Caster FENG Villarreal was contacted at 10:48, pm1 regarding regarding transfer, patient's condition, and will see patient. 06:59 Order name: Basic Metabolic Panel; Complete Time: 07:51 pm1 06:59 Order name: CBC with Diff; Complete Time: 10:13 pm1 06:59 Order name: LFT's; Complete Time: 07:51 pm1 06:59 Order name: Magnesium; Complete Time: 07:51 pm1 06:59 Order name: NT PRO-BNP; Complete Time: 07:51 pm 06:59 Order name: PT-INR; Complete Time: 07:36 pm1 06:59 Order name: Troponin (emerg Dept Use Only); Complete Time: 07:51 pm 06:59 Order name: XRAY Chest (1 view); Complete Time: 10:41 pm1 07:33 Order name: Type And Screen 07:36 Order name: Lactate; Complete Time: 08:53 pm1 07:51 Order name: Occult Blood--Ancillary; Complete Time: 12:16 dh4 08:41 Order name: Packed RBC Leukored EDMS 10:10 Order name: CBC Smear Scan; Complete Time: 10:13 EDMS 06:59 Order name: EKG; Complete Time: 07:01 pm 06:59 Order name: Cardiac monitoring; Complete Time: 07:02 pm 06:59 Order name: EKG - Nurse/Tech; Complete Time: 07:02 pm1 06:59 Order name: IV Saline Lock; Complete Time: 07:15 pm 06:59 Order name: Labs collected and sent; Complete Time: 07:15 pm 06:59 Order name: O2 Per Protocol; Complete Time: 07:02 pm 06:59 Order name: O2 Sat Monitoring; Complete Time: 07:02 pm 07:43 Order name: Transfuse; Complete Time: 09:46 pm 07:56 Order name: CT Abd/Pelvis - IV Contrast Only; Complete Time: 09:50 pm1 08:04 Order name: NPO; Complete Time: 08:05 pm1 Administered Medications: 08:14 Drug: Zofran (Ondansetron) 4 mg Route: IVP; Site: right antecubital; em 08:30 Follow up: Response: No adverse reaction em 08:16 Drug: morphine 4 mg Route: IVP; Site: right antecubital; em 08:30 Follow up: Response: No adverse reaction; Marked relief of symptoms; Pain is decreased em 08:38 Drug: ProTONIX 40 mg Route: IVP; Site: left forearm; em 09:10 Follow up: Response: No adverse reaction em 08:46 Drug: ProTONIX 8 mg/hr Route: IV; Rate: 25 ml/hr; Site: left forearm; em 12:45 Follow up: IV Status: Infusion continued upon transfer em 09:08 Drug: Benadryl 12.5 mg Route: IVP; Site: right antecubital; em 09:30 Follow up: Response: No adverse reaction em 09:09 Drug: Solu-CORTEF 50 mg Route: IVP; Site: right antecubital; em 09:30 Follow up: Response: No adverse reaction em Disposition: 08/11 02:13 Co-signature as Attending Physician, Teodoro Lambert MD I agree with the assessment and 4 plan of care. Disposition: 08/11/19 09:59 Transfer ordered to [facility]. Diagnosis are Gastrointestinal hemorrhage, unspecified, Elevated troponin, Chest pain, unspecified, Anemia, unspecified. - Reason for transfer: Specialty. - Accepting physician is Dr Oswald. - Condition is Fair. - Problem is new. - Symptoms have improved. Signatures: Dispatcher [employer] Randal Freitas RN RN Lenny Rice, PUBLISHER ASSISTANT PUBLISHER ASSISTANT pm1 Teodoro Lambert MD MD 4 Christophe Ovalle RN RN Slade Vargas formerly [facility] Corrections: (The following items were deleted from the chart) 10:00 09:59 08/11/2019 09:59 Transfer ordered to [facility]. Diagnosis is Gastrointestinal pm1 hemorrhage, unspecified. Reason for transfer: Specialty. Accepting physician is [facility]. Condition is Fair. Problem is new. Symptoms have improved. pm1 10:48 10:00 08/11/2019 09:59 Transfer ordered to [facility]. Diagnosis is Gastrointestinal pm1 hemorrhage, unspecified; Elevated troponin; Chest pain, unspecified; Anemia, unspecified. Reason for transfer: Specialty. Accepting physician is [facility]. Condition is Fair. Problem is new. Symptoms have improved. pm1 11:16 10:48 08/11/2019 09:59 Transfer ordered to [facility]. Diagnosis is dh4 Gastrointestinal hemorrhage, unspecified; Elevated troponin; Chest pain, unspecified; Anemia, unspecified. Reason for transfer: Specialty. Accepting physician is Phil LYNN. Condition is Fair. Problem is new. Symptoms have improved. pm1 12:45 11:16 08/11/2019 09:59 Transfer ordered to [facility]. Diagnosis is em Gastrointestinal hemorrhage, unspecified; Elevated troponin; Chest pain, unspecified; Anemia, unspecified. Reason for transfer: Specialty. Accepting physician is Dr Oswald. Condition is Fair. Problem is new. Symptoms have improved. dh4
[2019-08-11 10:10] LABS: Anisocytosis 2+; Blood Morphology Comment NOTED (NOT SEEN); Elliptocytes 1+; Platelet Estimate ADEQ; Poikilocytosis 1+; Urine White Blood Cell Casts OK
--- NOTE | 2019-08-11 10:29 | RAD REPORT ---
EXAM DESCRIPTION: RAD - Chest Single View - 08/11/2019 7:17 am CLINICAL HISTORY: CHEST PAIN Chest pain. COMPARISON: Chest Single View dated 07/05/2019; Chest Single View dated 06/21/2019; Chest Single View d ated 10/09/2018; CHEST SINGLE VIEW dated 07/19/2012 FINDINGS: Portable technique limits examination quality. The lungs are emphysematous but grossly clear. The heart is upper limit of normal in size. No displac ed fractures. IMPRESSION: Mild COPD.
[2019-08-11 13:04] VITALS: BP 139/61; TEMP 99.1; O2SAT 98
--- NOTE | 2019-08-13 15:40 | EKG ---
Test Date: 2019-08-11 Test Time: 06:59:54 Van Loader: JANE MEASUREMENT RESULTS: Intervals: Rate: 66 [place]: 100 QRSD: 90 QT: 482 QTc: 505 [place]: P: 71 [place]: 100 QRS: 73 T: 86 INTERPRETIVE STATEMENTS: Sinus rhythm with short [place] Nonspecific ST abnormality Prolonged QT Abnormal ECG Compared to ECG 07/05/2019 15:02:04 Short [place] interval now present ST (T wave) deviation now present Ventricular premature complex(es) no longer present Atrial abnormality no longer present Electronically Signed On 08-13-19 15:39:37 SNOW PLOW OPERATOR by Wero Sweeney
== END 2019-08-11 12:45 | disposition short-term general hospital (02) ==
LOC: ER 06:38
PROC: 30233N1 Transfusion of Nonautologous Red Blood Cells into Peripheral Vein, Percutaneous Approach (ICD-10-PCS; principal; 2019-08-11)
DX: K92.2 Gastrointestinal hemorrhage, unspecified (principal); D64.9 Anemia, unspecified; R79.89 Other specified abnormal findings of blood chemistry; F17.210 Nicotine dependence, cigarettes, uncomplicated; I10 Essential (primary) hypertension; Z88.6 Allergy status to analgesic agent
CPT/HCPCS: 36415; 71045; 74177; 80048; 80076; 82272; 83605; 83735; 83880; 84484; 85025; 85610; 86850; 86900; 86901; 93005; 96365; 96366; 96375; 99285; C9113; J1200; J1720; J2405; J7030; P9016; Q9967

== ENCOUNTER 2019-08-31 06:30 | Emergency (ER) | payer SELFPAY ==
--- OUTSIDE RECORDS SUMMARY | 2019-08-31 06:33 | XMS REPORT ---
:1955 [facility] Address [address] [place] [address] Care Team Providers Name Role Phone MEAGHAN VENTURA Unavailable Unavailable Problems This patient has no known problems. Allergies, Adverse Reactions, Alerts This patient has no known allergies or adverse reactions. Medications This patient has no known medications. Encounters Start End Encounter Admission Attending Care Care Encounter Date/Time Date/Time Type Type Clinicians Facility Department ID 2019-08-11 Inpatient [facility] MED [id number] 13:55:00 Results Test Description Test Time Test Comments Text Results Atomic Results Result Comments BLOOD CULTURE 2019-07-12 10:01:00 Test Item Value Reference Range Comments CULTURE (BEAKER) (test ztdm=4537) No growth in 5 days BLOOD [id number] 10:01:00 Test Item Value Reference Range Comments CULTURE (BEAKER) (test qjxs=5643) No growth in 5 days CBC W/PLT COUNT & AUTO [id number] 13:50:00 Test Item Value Reference Range Comments WHITE BLOOD CELL COUNT 11.2 K/ L 3.5-10.5 (BEAKER) (test lpqp=197) RED BLOOD CELL COUNT (BEAKER) 3.99 M/ L 4.63-6.08 (test rtfk=045) HEMOGLOBIN (BEAKER) (test 7.8 GM/DL 13.7-17.5 xmpg=016) HEMATOCRIT (BEAKER) (test 27.7 % 40.1-51.0 oygp=445) MEAN CORPUSCULAR VOLUME 69.4 fL 79.0-92.2 (BEAKER) (test azpw=591) MEAN CORPUSCULAR HEMOGLOBIN 19.5 pg 25.7-32.2 (BEAKER) (test ypek=505) MEAN CORPUSCULAR HEMOGLOBIN 28.2 GM/DL 32.3-36.5 CONC (BEAKER) (test onpm=657) RED CELL DISTRIBUTION WIDTH 19.8 % 11.6-14.4 (BEAKER) (test xtat=774) PLATELET COUNT (BEAKER) (test 187 K/CU MM 150-450 yaqf=620) MEAN PLATELET VOLUME (BEAKER) Unable to report due to (test pbgy=444) abnormal Platelet population distribution. NUCLEATED RED BLOOD CELLS 0 /100 WBC 0-0 (BEAKER) (test fibk=114) NEUTROPHILS RELATIVE PERCENT 83 % (BEAKER) (test uscn=451) LYMPHOCYTES RELATIVE PERCENT 9 % (BEAKER) (test jtyf=996) MONOCYTES RELATIVE PERCENT 8 % (BEAKER) (test jtkt=268) EOSINOPHILS RELATIVE PERCENT 0 % (BEAKER) (test nigj=771) BASOPHILS RELATIVE PERCENT 0 % (BEAKER) (test ajku=178) NEUTROPHILS ABSOLUTE COUNT 9.26 K/ L 1.78-5.38 (BEAKER) (test hghh=489) LYMPHOCYTES ABSOLUTE COUNT 0.99 K/ L 1.32-3.57 (BEAKER) (test lhhd=637) MONOCYTES ABSOLUTE COUNT 0.89 K/ L 0.30-0.82 (BEAKER) (test dibd=627) EOSINOPHILS ABSOLUTE COUNT 0.02 K/ L 0.04-0.54 (BEAKER) (test vmxs=876) BASOPHILS ABSOLUTE COUNT 0.01 K/ L 0.01-0.08 (BEAKER) (test sieu=725) IMMATURE GRANULOCYTES-RELATIVE 0 % 0-1 PERCENT (BEAKER) (test fqvs=6866) U/S, ABDOMINAL, [id number] 10:42:00Abdomen limited area? Add comment if clarification [...] MDReport Verified Date/Time: 07/08/2019 10:42:44 Reading Location: [facility] B1 C013Y CT Body Reading Room [id number] 05:15:00 Test Item Value Reference Range Comments MAGNESIUM (BEAKER) (test ctly=409) 2.2 mg/dL 1.6-2.6 Director Regulatory Compliance NAPOLEON RODRIGUEZ WBASIC METABOLIC [id number] 05:15:00 Test Item Value Reference Range Comments SODIUM (BEAKER) (test 140 meq/L 136-145 eble=563) POTASSIUM (BEAKER) (test 4.1 meq/L 3.5-5.1 txwz=384) CHLORIDE (BEAKER) (test 108 meq/L 98-107 yiqg=803) CO2 (BEAKER) (test 24 meq/L 22-29 fnwj=931) BLOOD UREA NITROGEN 22 mg/dL 7-21 (BEAKER) (test hhgz=845) CREATININE (BEAKER) (test 0.87 mg/dL 0.57-1.25 jdyf=919) GLUCOSE RANDOM (BEAKER) 82 mg/dL 70-105 (test jyue=408) CALCIUM (BEAKER) (test 8.2 mg/dL 8.4-10.2 geuy=828) EGFR (BEAKER) (test 89 mL/min/1.73 sq m ESTIMATED GFR IS NOT rzrw=3884) ACCURATE CREATININE CLEARANCE IN PREDICTING GLOMERULAR FILTRATION RATE. ESTIMATED GFR IS NOT APPLICABLE FOR DIALYSIS PATIENTS. Director Regulatory Compliance NAPOLEON Wu JENNIFER WCBC W/PLT COUNT & AUTO [id number] 15:16:00 Test Item Value Reference Range Comments WHITE BLOOD CELL COUNT 21.0 K/ L 3.5-10.5 (BEAKER) (test cdad=724) RED BLOOD CELL COUNT (BEAKER) 5.30 M/ L 4.63-6.08 (test yexk=138) HEMOGLOBIN (BEAKER) (test 10.3 GM/DL 13.7-17.5 gszs=695) HEMATOCRIT (BEAKER) (test 36.4 % 40.1-51.0 fyey=342) MEAN CORPUSCULAR VOLUME 68.7 fL 79.0-92.2 (BEAKER) (test byuf=115) MEAN CORPUSCULAR HEMOGLOBIN 19.4 pg 25.7-32.2 (BEAKER) (test neuq=710) MEAN CORPUSCULAR HEMOGLOBIN 28.3 GM/DL 32.3-36.5 CONC (BEAKER) (test ktyx=146) RED CELL DISTRIBUTION WIDTH 20.8 % 11.6-14.4 (BEAKER) (test psko=233) PLATELET COUNT (BEAKER) (test 277 K/CU MM 150-450 cviq=366) MEAN PLATELET VOLUME (BEAKER) Unable to report due to (test eyks=388) abnormal Platelet population distribution. NUCLEATED RED BLOOD CELLS 0 /100 WBC 0-0 (BEAKER) (test vimi=883) (CELLAVISION MANUAL DIFF)2019-07-07 15:16:00 Test Item Value Reference Range Comments NEUTROPHILS - REL (CELLAVISION)(BEAKER) (test 89 % tlps=9086) LYMPHOCYTES - REL (CELLAVISION)(BEAKER) (test 7 % mjho=1620) MONOCYTES - REL (CELLAVISION)(BEAKER) (test 4 % wlgf=8307) NEUTROPHILS - ABS (CELLAVISION)(BEAKER) (test 18.69 K/ul 1.78-5.38 gsna=7786) LYMPHOCYTES - ABS (CELLAVISION)(BEAKER) (test 1.47 K/ul 1.32-3.57 xnig=1998) MONOCYTES - ABS (CELLAVISION)(BEAKER) (test 0.84 K/uL 0.30-0.82 dcsd=8518) TOTAL COUNTED (BEAKER) (test otvp=6531) 100 WBC MORPHOLOGY (BEAKER) (test klvx=284) Normal PLT MORPHOLOGY (BEAKER) (test oszs=963) Normal POLYCHROMATOPHILLIC RBCS(BEAKER) (test onkv=287) 1+ few HYPOCHROMIA (BEAKER) (test swaf=643) 1+ few ANISOCYTOSIS (BEAKER) (test fqdc=547) 2+ moderate MICROCYTES (BEAKER) (test lski=457) 2+ moderate MACROCYTES (BEAKER) (test slyp=859) 1+ few POIKILOCYTES (BEAKER) (test exea=431) 2+ moderate TARGET CELLS (BEAKER) (test bdfy=711) 1+ few STACEY CELLS (BEAKER) (test yztu=800) 1+ few ARTIFACT (CELLAVISION)(BEAKER) (test gfho=1208) Present PLATELET CONCENTRATION (CELLAVISION)(BEAKER) Adequate (test vbhf=2028) Director Regulatory Compliance ID - [id number] ID - Jackeline Manjarrez comments: Slide comments: LACTIC ACID, [id number] 09:57:00 Test Item Value Reference Range Comments LACTATE BLOOD VENOUS (2) (BEAKER) (test 1.0 mmol/L 0.5-2.2 hrpo=9411) Director Regulatory Compliance ID - AMANDA [id number] 06:59:00 Test Item Value Reference Range Comments MAGNESIUM (BEAKER) (test xbtw=634) 2.2 mg/dL 1.6-2.6 Director Regulatory Compliance ID - AMANDA MBASIC METABOLIC [id number] 06:59:00 Test Item Value Reference Range Comments SODIUM (BEAKER) (test 138 meq/L 136-145 hago=010) POTASSIUM (BEAKER) (test 3.4 meq/L 3.5-5.1 uchp=717) CHLORIDE (BEAKER) (test 101 meq/L 98-107 weam=485) CO2 (BEAKER) (test 26 meq/L 22-29 mhbs=376) BLOOD UREA NITROGEN 31 mg/dL 7-21 (BEAKER) (test zswj=949) CREATININE (BEAKER) (test 1.29 mg/dL 0.57-1.25 cbvh=165) GLUCOSE RANDOM (BEAKER) 72 mg/dL 70-105 (test nuco=064) CALCIUM (BEAKER) (test 8.9 mg/dL 8.4-10.2 fdwv=560) EGFR (BEAKER) (test 57 mL/min/1.73 sq m ESTIMATED GFR IS NOT zkai=2008) ACCURATE CREATININE CLEARANCE IN PREDICTING GLOMERULAR FILTRATION RATE. ESTIMATED GFR IS NOT APPLICABLE FOR DIALYSIS PATIENTS. Director Regulatory Compliance ID - AMANDA EPATIC FUNCTION [id number] 06:59:00 Test Item Value Reference Range Comments TOTAL PROTEIN (BEAKER) (test gjkh=000) 6.7 gm/dL 6.0-8.3 ALBUMIN (BEAKER) (test jojn=2417) 3.3 g/dL 3.5-5.0 BILIRUBIN TOTAL (BEAKER) (test paum=694) 1.1 mg/dL 0.2-1.2 BILIRUBIN DIRECT (BEAKER) (test nirz=900) 0.6 mg/dL 0.1-0.5 ALKALINE PHOSPHATASE (BEAKER) (test ljtz=621) 81 U/L 40-150 AST (SGOT) (BEAKER) (test nnxi=660) 26 U/L 5-34 ALT (SGPT) (BEAKER) (test twvm=092) 14 U/L 6-55 Director Regulatory Compliance ID - AMANDA MB-TYPE NATRIURETIC FACTOR (BNP)2019-07-07 06:47:00 Test Item Value Reference Range Comments B-TYPE NATRIURETIC PEPTIDE (BEAKER) (test qwnw=674) 99 pg/mL 0-100 Director Regulatory Compliance ID - AMANDA MRAD, ABDOMEN/KUB, 1 VIEW [id number] 22:57:00Reason for exam:->abdominal painShould this be performed [...] MDReport Verified Date/Time: 07/06/2019 22:57:23 Reading Location: [facility] C0[facility] Consult Reading Room 10: 57 PMRAD, CHEST, 1 VIEW, NON [id number] 18:12:00Reason for exam:-> dyspneaShould this be performed at the bedside?->YesFINAL REPORT AP chest dated 07/06/2019 Comment: Heart is enlarged. Pulmonary vasculature is unremarkable. Lungs are clear. No pulmonary infiltrate or pleural effusion. Impression:Cardiomegaly without pulmonary edema. Signed: Phuong Dueport Verified Date/Time: 07/06/2019 18:12:22 Reading Location: [address] Consult Reading Room CBC W/PLT COUNT & AUTO [id number] 02:10:00 Test Item Value Reference Range Comments WHITE BLOOD CELL COUNT 16.1 K/ L 3.5-10.5 (BEAKER) (test ffxq=358) RED BLOOD CELL COUNT (BEAKER) 6.50 M/ L 4.63-6.08 (test gqyu=143) HEMOGLOBIN (BEAKER) (test 12.6 GM/DL 13.7-17.5 lppj=189) HEMATOCRIT (BEAKER) (test 45.5 % 40.1-51.0 ykjl=675) MEAN CORPUSCULAR VOLUME 70.0 fL 79.0-92.2 (BEAKER) (test vrjr=033) MEAN CORPUSCULAR HEMOGLOBIN 19.4 pg 25.7-32.2 (BEAKER) (test ukgk=041) MEAN CORPUSCULAR HEMOGLOBIN 27.7 GM/DL 32.3-36.5 CONC (BEAKER) (test fcqx=287) RED CELL DISTRIBUTION WIDTH 21.5 % 11.6-14.4 (BEAKER) (test rewu=508) PLATELET COUNT (BEAKER) (test 297 K/CU MM 150-450 tlne=373) MEAN PLATELET VOLUME (BEAKER) Unable to report due to (test wgsq=696) abnormal Platelet population distribution. NUCLEATED RED BLOOD CELLS 0 /100 WBC 0-0 (BEAKER) (test hybz=834) NEUTROPHILS RELATIVE PERCENT 93 % (BEAKER) (test aogs=902) LYMPHOCYTES RELATIVE PERCENT 3 % (BEAKER) (test ivpa=246) MONOCYTES RELATIVE PERCENT 4 % (BEAKER) (test ovyz=627) EOSINOPHILS RELATIVE PERCENT 0 % (BEAKER) (test omlu=589) BASOPHILS RELATIVE PERCENT 0 % (BEAKER) (test aeoa=052) NEUTROPHILS ABSOLUTE COUNT 14.98 K/ L 1.78-5.38 (BEAKER) (test gbzk=126) LYMPHOCYTES ABSOLUTE COUNT 0.52 K/ L 1.32-3.57 (BEAKER) (test iitk=283) MONOCYTES ABSOLUTE COUNT 0.56 K/ L 0.30-0.82 (BEAKER) (test bioj=560) EOSINOPHILS ABSOLUTE COUNT 0.00 K/ L 0.04-0.54 (BEAKER) (test pnqc=496) BASOPHILS ABSOLUTE COUNT 0.02 K/ L 0.01-0.08 (BEAKER) (test dfra=162) IMMATURE GRANULOCYTES-RELATIVE 0 % 0-1 PERCENT (BEAKER) (test xbos=3975) TROPONIN [id number] 02:05:00 Test Item Value Reference Range Comments TROPONIN I (BEAKER) (test qzyo=122) 0.02 ng/mL 0.00-0.03 Troponin I (TnI) levels [...] failure, acidosis, acute neurological disease, and persistent tachyarrhythmia.Director Regulatory Compliance ID - CATRINA BPROTHROMBIN TIME/ [id number] 02:05:00 Test Item Value Reference Range Comments PROTIME (RIYA) (test iojj=201) 15.2 seconds 11.9-14.2 INR (BEAKER) (test rudw=103) 1.2 <=5.9 Effective 11/08/2018: PT Reference Range ChangeNew: 11.9-14.2 Previous: 11.7- 14.7RECOMMENDED COUMADIN/WARFARIN INR THERAPY RANGESSTANDARD DOSE: 2.0-3.0 Includes: PROPHYLAXIS for venous thrombosis, systemic embolization; TREATMENT for venous thrombosis and/or pulmonary embolus.HIGH RISK: Target INR is2.5-3.5 for patients wiht mechanical heart valves.[id number] 02:02:00 Test Item Value Reference Range Comments LIPASE (BEAKER) (test txen=298) 85 U/L 8-78 Director Regulatory Compliance ID - CATRINA BBASIC METABOLIC [id number] 02:02:00 Test Item Value Reference Range Comments SODIUM (BEAKER) (test 141 meq/L 136-145 nzgy=901) POTASSIUM (BEAKER) (test 3.6 meq/L 3.5-5.1 legy=182) CHLORIDE (BEAKER) (test 107 meq/L 98-107 awvp=187) CO2 (BEAKER) (test 25 meq/L 22-29 ugtj=296) BLOOD UREA NITROGEN 15 mg/dL 7-21 (BEAKER) (test ejxr=422) CREATININE (BEAKER) (test 0.76 mg/dL 0.57-1.25 ddyl=508) GLUCOSE RANDOM (BEAKER) 90 mg/dL 70-105 (test latx=556) CALCIUM (BEAKER) (test 8.8 mg/dL 8.4-10.2 bkwp=122) EGFR (BEAKER) (test 104 mL/min/1.73 sq m ESTIMATED GFR IS NOT amwq=6638) ACCURATE CREATININE CLEARANCE IN PREDICTING GLOMERULAR FILTRATION RATE. ESTIMATED GFR IS NOT APPLICABLE FOR DIALYSIS PATIENTS. Director Regulatory Compliance ID - CATRINA BHEPATIC FUNCTION [id number] 02:02:00 Test Item Value Reference Range Comments TOTAL PROTEIN (BEAKER) (test ogdl=397) 6.8 gm/dL 6.0-8.3 ALBUMIN (BEAKER) (test zxox=7542) 3.6 g/dL 3.5-5.0 BILIRUBIN TOTAL (BEAKER) (test ejsr=260) 0.7 mg/dL 0.2-1.2 BILIRUBIN DIRECT (BEAKER) (test txek=517) 0.5 mg/dL 0.1-0.5 ALKALINE PHOSPHATASE (BEAKER) (test olyc=901) 96 U/L 40-150 AST (SGOT) (BEAKER) (test tcoq=440) 21 U/L 5-34 ALT (SGPT) (BEAKER) (test pzhv=629) 11 U/L 6-55 Director Regulatory Compliance ID - CATRINA B
[2019-08-31] MEDS ORDERED: NA CHLORIDE 0.9% 1,000 ML ONE (07:15)
[2019-08-31] MEDS ORDERED: PANTOPRAZOLE 40 MG INJ ONE (07:15)
[2019-08-31 07:31] LABS: Absolute Lymphocytes (CBC) 0.9 K/uL (0.7-4.9); Basophils % 0.6 % (0-1.3); Lymphocytes % 10.8 % (15.3-44.8); MPV 10.1 fL (7.6-11.3); RBC Red Blood Cell Count 2.75 M/uL (4.33-5.43)
[2019-08-31 07:34] LABS: Hematocrit 20.1 % (39.6-49.0)
[2019-08-31 07:46] LABS: Protime INR 1.23
[2019-08-31 08:06] LABS: ALT/SGPT 10 U/L (12-78); AST/SGOT 11 U/L (15-37); Albumin 2.2 g/dL (3.4-5.0); Alkaline Phosphatase 73 U/L (45-117); BUN Blood Urea Nitrogen 37 mg/dL (7-18); Bicarbonate 27 mmol/L (21-32); Bilirubin Direct < 0.1 mg/dL (0-0.2); Bilirubin Total 0.2 mg/dL (0.2-1.0); Glucose Level 80 mg/dL (74-106); NT PRO-BNP 2371 pg/mL (<125); Potassium 4.2 mmol/L (3.5-5.1); Protein, Total 5.1 g/dL (6.4-8.2); Sodium Level 143 mmol/L (136-145); Troponin (Emerg Dept Use Only) 0.02 ng/mL (0.0-0.045)
--- NOTE | 2019-08-31 08:39 | RAD REPORT ---
EXAM DESCRIPTION: RAD - Chest Single View - 08/31/2019 7:10 am CLINICAL HISTORY: gi bleed Chest pain. COMPARISON: Chest Single View dated 08/11/2019; Chest Single View dated 07/05/2019; Chest Single View dated 06/21/2019; Chest Single View dated 10/09/2018 FINDINGS: Portable technique limits examination quality. The lungs are grossly clear. The heart is mildly enlarged in size. No displaced fractures. IMPRESSION: No acute intrathoracic process suspected.
[2019-08-31] MEDS ORDERED: NICOTINE 21 MG/PAT TD ONE (08:40)
--- NOTE | 2019-08-31 09:17 | ER ---
Nurse's Notes [facility] Name: Blue Almazan Age: 63 yrs Sex: Male : 1955 Arrival Date: 08/31/2019 Time: 06:33 Bed 7 Private MD: Diagnosis: Gastrointestinal hemorrhage, unspecified;Anemia in chronic diseases classified elsewhere;Weakness Presentation: 08/30 06:34 Chief complaint: Patient states: "The pt was on the way to work when he called saying jd3 he was feeling weak. he reported having bloody stool this morning. he reported that he has a GI bleed before and has to receive blood here before. he was initially 107/70 so we stated an IV and gave some fluids and his blood pressure improved.". Coronavirus screen: The patient has NOT traveled to a country currently being monitored by the CDC within the last 14 days. The patient has NOT had contact with any known and/or suspected case of coronavirus. Proceed with normal triage procedures. Ebola Screen: Patient negative for fever greater than or equal to 101.5 degrees Fahrenheit, and additional compatible Ebola Virus Disease symptoms. Initial Sepsis Screen: Does the patient meet any 2 criteria? No. Patient's initial sepsis screen is negative. Does the patient have a suspected source of infection? No. Patient's initial sepsis screen is negative. Risk Assessment: Do you want to hurt yourself or someone else? Patient reports no desire to harm self or others. 06:34 Acuity: JAMMIE 3 jd3 06:34 Method Of Arrival: EMS: [facility] jd3 06:39 Onset of symptoms was August 31, 2019. jd3 Historical: - Allergies: 06:34 Ibuprofen; jd3 06:34 Tylenol; jd3 - Home Meds: 06:34 None [Active]; jd3 - PMHx: 06:34 DRUG ADDICTION; Anemia; Hypertension; Myocardial infarction; jd3 - PSHx: 06:34 None; jd3 - Immunization history:: Adult Immunizations up to date. - Social history:: Smoking status: Patient reports the use of cigarette tobacco products, smokes one pack cigarettes per day. Screenin:39 Abuse screen: Denies threats or abuse. Nutritional screening: No deficits noted. jd3 Tuberculosis screening: No symptoms or risk factors identified. Fall Risk IV access (20 points). Ambulatory Aid- None/Bed Rest/Nurse Assist (0 pts). Gait- Normal/Bed Rest/Wheelchair (0 pts) Mental Status- Oriented to own ability (0 pts). Total Carias Fall Scale indicates No Risk (0-24 pts). Assessment: 06:35 General: Appears uncomfortable, Behavior is flat. Pain: Denies pain. Neuro: Level of ah Consciousness is awake, alert, Oriented to person, place, time, Transmission Assembler are equal bilaterally Moves all extremities. Cardiovascular: Reports None Heart tones S1 S2 Capillary refill < 3 seconds. Respiratory: Airway is patent Respiratory effort is even, unlabored, Respiratory pattern is regular, symmetrical, Breath sounds are clear bilaterally. GI: Abdomen is non-distended, Bowel sounds present X 4 quads. Abd is soft and non tender X 4 quads. Reports bloody stool, Patient currently denies abdominal pain, hemorrhoids, nausea, vomiting. : No signs and/or symptoms were reported regarding the genitourinary system. EENT: No signs and/or symptoms were reported regarding the EENT system. Derm: No signs and/or symptoms reported regarding the dermatologic system. Musculoskeletal: No signs and/or symptoms reported regarding the musculoskeletal system. 07:10 General: Appears in no apparent distress. uncomfortable, Behavior is calm, cooperative, em Denies fever. Pain: Denies pain. Neuro: Level of Consciousness is awake, alert, obeys commands, Oriented to person, place, time, situation, Appropriate for age Reports weakness. Cardiovascular: Capillary refill < 3 seconds Patient's skin is warm and dry. Respiratory: Airway is patent Respiratory effort is even, unlabored, Respiratory pattern is regular, symmetrical, Breath sounds are clear bilaterally. GI: Abdomen is flat, non-distended, Bowel sounds present X 4 quads. Abd is soft and non tender X 4 quads. Reports bloody stool, Patient currently denies abdominal pain. Derm: Skin is intact, is thin, Skin is pale. Musculoskeletal: Capillary refill < 3 seconds, Range of motion: intact in all extremities. 07:40 Reassessment: HGB 5.8 and HCT 20.1 labs reported to ADRIANO Benedict. em 08:30 Reassessment: Patient appears in no apparent distress at this time. pt request a em nicotine patch, provider notified, received new orders Patient denies pain at this time. 09:40 Reassessment: initiated PRBC's transfusion, baseline vitals obtained, pt denies em shortness of breath, pain or nausea. 10:24 Reassessment: pt undecided on transfer, states he can't afford to miss work, pt waiting em for reply from daughter to see what pt should do, provider notified. 11:19 Reassessment: Patient appears in no apparent distress at this time. report given to rob Baron RN at [facility], pending EMS transportation. 11:42 Reassessment: Patient appears in no apparent distress at this time. completion of em transfusion. 11:51 Reassessment: Patient appears in no apparent distress at this time. report given to em EMS. Vital Signs: 06:34 BP 116 / 86; Pulse 61; Resp 16 S; Temp 97.6(O); Pulse Ox 100% on R/A; Weight 54.43 kg jd3 (R); Height 5 ft. 8 in. (172.72 cm) (R); Pain 0/10; 07:15 BP 136 / 65; Pulse 56; Resp 16; Pulse Ox 99% on R/A; Pain 0/10; em 08:26 BP 144 / 69 Supine; Pulse 57; Resp 17; Pulse Ox 100% on R/A; dh3 08:28 BP 141 / 72 Sitting; Pulse 65; Resp 13; Pulse Ox 100% on R/A; dh3 08:30 BP 159 / 67 Standing; Pulse 64; Resp 20; Pulse Ox 100% on R/A; dh3 09:40 em 09:45 BP 173 / 75; Pulse 57; Resp 14; Temp 98.8(TE); Pulse Ox 100% on R/A; tw2 11:00 BP 162 / 74; Pulse 61; Resp 22; Pulse Ox 99% on R/A; tw2 06:34 Body Mass Index 18.25 (54.43 kg, 172.72 cm) jd3 09:40 please see blood transfusion for VS em ED Course: 06:33 Patient arrived in ED. jd3 06:36 Jak Matson PA is PHCP. cp 06:36 Jak Tapia MD is Attending Physician. cp 06:38 Triage completed. jd3 06:38 Arm band placed on. jd3 06:38 Patient has correct armband on for positive identification. Placed in gown. Bed in low jd3 position. Call light in reach. Side rails up X 1. traffic monitor specialist on. Pulse ox on. NIBP on. 06:39 Maintain EMS IV. Dressing intact. Good blood return noted. Site clean \\T\\ dry. Gauge \\T\\ gladis 3 site: 18 G right AC. 07:05 Randal Roy, RN is Primary Nurse. em 07:09 XRAY Chest (1 view) In Process Unspecified. EDMS 07:09 EKG done, by ED staff, reviewed by Micah Lugo MD. ds4 07:17 Micah Lugo MD is Attending Physician. cp 07:40 Consent for blood and/or blood product transfusion explained by staff, explained by em physician, signed by patient. 08:22 initiated a transfer with Lorene from the [facility] Transfer [place]. eb 08:24 Inserted saline lock: 20 gauge in left forearm, using aseptic technique. 3 09:01 Lorene from [facility] Called to ask for an extension she is still working on the transfer. 09:[address] Castellanos the craft center director signalling and communications engineer for [facility] with Jak hall for patient transfer consultation. 09:19 administrative approval given by Christine Jamil Rn/ patient has been accepted to [facility] ICU. Sheree Shah has accepted the patient in transfer/ report to be called to [phone]. 11:57 No provider procedures requiring assistance completed. Patient admitted, IV remains in em place. Administered Medications: 07:18 Drug: NS 0.9% 1000 ml Route: IV; Rate: 1 bolus; Site: right antecubital; em 08:26 Follow up: IV Status: Completed infusion; IV Intake: 1000ml em 07:18 Drug: ProTONIX 40 mg Route: IVP; Site: right antecubital; em 08:26 Follow up: Response: No adverse reaction em 08:40 Drug: Nicoderm CQ 21 mg/24 hr 21 mg Route: Transdermal; Site: anterior chest wall; em 09:00 Follow up: Response: No adverse reaction em 10:00 Drug: ProTONIX 8 mg/hr Route: IV; Rate: 25 ml/hr; Site: right antecubital; em 12:00 Follow up: IV Status: Infusion continued upon transfer em Intake: 08:26 IV: 1000ml; Total: 1000ml. em Outcome: 09:16 ER care complete, transfer ordered by . cp 11:57 Transferred by ground EMS to [facility], Transfer form completed. X-rays sent em w/ patient. 11:57 Condition: good 11:57 Instructed on the need for transfer, Demonstrated understanding of instructions. 12:03 Patient left the ED. em Signatures: Dispatcher [employer] Randal Freitas, RN RN em Bret Mobley ds4 Jak Matson PA PA cp Wise, Tara RN RN tw2 Vonnie Taylor 3 Deo Ferreira RN RN constanced3 Elma Machado Amy RN RN Corrections: (The following items were deleted from the chart) 09:29 09:10 connected the craft center director signalling and communications engineer for [facility] with Jak Nielsen for eb patient transfer consultation. eb 09:33 09:30 Diet: eb eb 11:59 09:40 Reassessment: initiated PRBC's transfusion, baseline vitals obtains, pt denies em shortness of breath, pain or nausea em
--- NOTE | 2019-08-31 09:17 | EDPHYS ---
Physician Documentation [facility] Name: Blue Almazan Age: 63 yrs Sex: Male : 1955 Arrival Date: 08/31/2019 Time: 06:33 Bed 7 Private MD: ED Physician Micah Lugo HPI: 08/30 07:00 This 63 yrs old Male presents to ER via EMS with complaints of Blood in stool.cp 07:00 The patient presents to the emergency department with rectal bleeding. Onset: The cp symptoms/episode began/occurred this morning. Abdominal pain: none is appreciated. Associated signs and symptoms: Pertinent positives: general weakness, Pertinent negatives: chest pain, constipation, diarrhea, fever, vomiting, abdominal pain. Historical: - Allergies: 06:34 Ibuprofen; jd3 06:34 Tylenol; jd3 - Home Meds: 06:34 None [Active]; jd3 - PMHx: 06:34 DRUG ADDICTION; Anemia; Hypertension; Myocardial infarction; jd3 - PSHx: 06:34 None; jd3 - Immunization history:: Adult Immunizations up to date. - Social history:: Smoking status: Patient reports the use of cigarette tobacco products, smokes one pack cigarettes per day. ROS: 07:05 Constitutional: Negative for body aches, chills, fever, poor PO intake. cp 07:05 Eyes: Negative for injury, pain, redness, and discharge. cp 07:05 ENT: Negative for drainage from ear(s), ear pain, sore throat, difficulty swallowing, cp difficulty handling secretions. 07:05 Cardiovascular: Negative for chest pain, edema, palpitations. 07:05 Respiratory: Negative for cough, shortness of breath, wheezing. 07:05 Abdomen/GI: Positive for rectal bleeding, Negative for abdominal pain, nausea, vomiting, and diarrhea. 07:05 : Negative for urinary symptoms. 07:05 Neuro: Positive for weakness, Negative for altered mental status, dizziness, headache, syncope. 07:05 All other systems are negative. Exam: 07:09 ECG was reviewed by the Attending Physician. cp 07:10 Head/Face: Normocephalic, atraumatic. Eyes: Pupils equal round and reactive to light, cp extra-ocular motions intact. Lids and lashes normal. Conjunctiva and sclera are non-icteric and not injected. Cornea within normal limits. Periorbital areas with no swelling, redness, or edema. ENT: Nares patent. No nasal discharge, no septal abnormalities noted. Tympanic membranes are normal and external auditory canals are clear. Oropharynx with no redness, swelling, or masses, exudates, or evidence of obstruction, uvula midline. Mucous membranes moist. Chest/axilla: Normal chest wall appearance and motion. Nontender with no deformity. No lesions are appreciated. 07:10 Constitutional: The patient appears in no acute distress, alert, awake, non-diaphoretic, non-toxic, well developed, well nourished, pale. 07:10 Cardiovascular: Rate: normal, Rhythm: regular, Edema: is not appreciated, JVD: is not appreciated. 07:10 Respiratory: the patient does not display signs of respiratory distress, Respirations: normal, no use of accessory muscles, no retractions, labored breathing, is not present, Breath sounds: are clear throughout, no decreased breath sounds, no stridor, no wheezing. 07:10 Abdomen/GI: Inspection: abdomen appears normal, Bowel sounds: active, all quadrants, Palpation: abdomen is soft and non-tender, in all quadrants, Rectal exam: Stool: grossly bloody, guaiac positive, maroon, hemorrhoid(s), external, without inflammation, without thrombosis. 07:10 Back: pain, is absent, ROM is normal. 07:10 Skin: no rash present. 07:10 Neuro: Orientation: to person, place \T\ time. Mentation: is normal, Cerebellar function: is grossly normal, Motor: moves all fours, strength is normal, Sensation: is normal. Vital Signs: 06:34 BP 116 / 86; Pulse 61; Resp 16 S; Temp 97.6(O); Pulse Ox 100% on R/A; Weight 54.43 kg jd3 (R); Height 5 ft. 8 in. (172.72 cm) (R); Pain 0/10; 07:15 BP 136 / 65; Pulse 56; Resp 16; Pulse Ox 99% on R/A; Pain 0/10; em 08:26 BP 144 / 69 Supine; Pulse 57; Resp 17; Pulse Ox 100% on R/A; dh3 08:28 BP 141 / 72 Sitting; Pulse 65; Resp 13; Pulse Ox 100% on R/A; dh3 08:30 BP 159 / 67 Standing; Pulse 64; Resp 20; Pulse Ox 100% on R/A; dh3 09:40 em 09:45 BP 173 / 75; Pulse 57; Resp 14; Temp 98.8(TE); Pulse Ox 100% on R/A; tw2 11:00 BP 162 / 74; Pulse 61; Resp 22; Pulse Ox 99% on R/A; tw2 06:34 Body Mass Index 18.25 (54.43 kg, 172.72 cm) jd3 09:40 please see blood transfusion for VS em MDM: 06:36 Patient medically screened. ilda 07:00 Differential diagnosis: diverticulitis, hemorrhagic shock, varices. cp 08:14 Data reviewed: vital signs, nurses notes, lab test result(s), EKG, radiologic studies, cp plain films. Test interpretation: by ED physician or midlevel provider: ECG, plain radiologic studies, chest xray negative for infiltrates. 09:15 Physician consultation: was contacted at 09:10, regarding regarding transfer, to [facility]. patient's condition, DR Castellanos, java architect, will accept patient as transfer. 08/30 06:54 Order name: Basic Metabolic Panel cp 08/30 06:54 Order name: CBC with Diff cp 08/30 06:54 Order name: LFT's cp 08/30 06:54 Order name: Magnesium cp 08/30 06:54 Order name: NT PRO-BNP cp 08/30 06:54 Order name: PT-INR; Complete Time: 08:11 cp 08/30 08:11 Interpretation: Abnormal: PT 14.4. cp 08/30 06:54 Order name: Troponin (emerg Dept Use Only); Complete Time: 08:11 cp 08/30 08:12 Interpretation: Within normal limits: TROPED 0.02. cp 08/30 06:54 Order name: Type And Screen cp 08/30 06:54 Order name: ETOH Level; Complete Time: 08:11 cp 08/30 06:54 Order name: Ptt, Activated; Complete Time: 08:11 cp 08/30 06:55 Order name: Basic Metabolic Panel; Complete Time: 08:11 EDMS 08/30 08:12 Interpretation: Normal except: CL 112; BUN 37; CA 7.5. cp 08/30 06:55 Order name: CBC with Automated Diff EDVA 08/30 07:42 Interpretation: Normal except: RBC 2.75; HGB 5.8; HCT 20.1; MCV 73.0; MCH 21.1; MCHC cp 28.9; RDW 23.0; FELIPA% 79.4; LYM% 10.8. 08/30 06:55 Order name: Liver (Hepatic) Function; Complete Time: 08:11 EDVA 08/30 08:12 Interpretation: Normal except: AST 11; ALT 10; TP 5.1; ALB 2.2; A/G 0.8. cp 08/30 06:55 Order name: Magnesium; Complete Time: 08:11 EDVA 08/30 06:54 Order name: XRAY Chest (1 view); Complete Time: 08:55 cp 08/30 08:55 Interpretation: Report review. 08/30 06:54 Order name: EKG; Complete Time: 06:55 cp 08/30 06:54 Order name: Cardiac monitoring; Complete Time: 06:56 cp 08/30 06:54 Order name: EKG - Nurse/Tech; Complete Time: 07:09 cp 08/30 06:54 Order name: IV Saline Lock; Complete Time: 06:56 cp 08/30 06:54 Order name: Labs collected and sent; Complete Time: 07:24 cp 08/30 06:54 Order name: O2 Per Protocol; Complete Time: 06:56 cp 08/30 06:54 Order name: O2 Sat Monitoring; Complete Time: 06:56 cp 08/30 06:55 Order name: NT PRO-BNP; Complete Time: 08:11 EDVA 08/30 10:15 Interpretation: Abnormal: NT PRO-BNP 2371. cp 08/30 07:37 Order name: CBC Smear Scan EDVA 08/30 07:39 Order name: Bb Add On eb 08/30 08:33 Order name: Packed RBC Leukored EDVA 08/30 06:54 Order name: IV; Complete Time: 06:56 cp 08/30 07:13 Order name: Orthostatics; Complete Time: 07:23 cp EC:09 Rate is 58 beats/min. Rhythm is regular. CT interval is normal. QRS interval is normal. cp QT interval is normal. T waves are Flattened in leads I, V6. Interpreted by me. Reviewed by me. Administered Medications: 07:18 Drug: NS 0.9% 1000 ml Route: IV; Rate: 1 bolus; Site: right antecubital; em 08:26 Follow up: IV Status: Completed infusion; IV Intake: 1000ml em 07:18 Drug: ProTONIX 40 mg Route: IVP; Site: right antecubital; em 08:26 Follow up: Response: No adverse reaction em 08:40 Drug: Nicoderm CQ 21 mg/24 hr 21 mg Route: Transdermal; Site: anterior chest wall; em 09:00 Follow up: Response: No adverse reaction em 10:00 Drug: ProTONIX 8 mg/hr Route: IV; Rate: 25 ml/hr; Site: right antecubital; em 12:00 Follow up: IV Status: Infusion continued upon transfer em Disposition: 19:00 Co-signature as Attending Physician, Micah Lugo MD Did not see or evaluate patient. ps1 Signature for administrative purposes. . Disposition: 08/31/19 09:16 Transfer ordered to [facility]. Diagnosis are Gastrointestinal hemorrhage, unspecified, Anemia in chronic diseases classified elsewhere, Weakness. - Reason for transfer: Higher level of care. - Accepting physician is DR Castellanos. - Condition is Stable. - Problem is an ongoing problem. - Symptoms have improved. Signatures: Dispatcher [employer] EDJak Dias MD MD cha Munoz, Edgar, RN RN Jak Matson PA PA cp Davies, Jonathon, RN RN jd3 Singer, Phillip, MD MD ps1 Corrections: (The following items were deleted from the chart) 08:12 08:11 Normal except: CL 112; BUN 37. cp cp 09:22 09:16 08/31/2019 09:16 Transfer ordered to [facility]. Diagnosis is cp Gastrointestinal hemorrhage, unspecified; Anemia in chronic diseases classified elsewhere. Reason for transfer: Higher level of care. Accepting physician is Doctor. Condition is Stable. Problem is an ongoing problem. Symptoms have improved. cp 09:22 09:22 08/31/2019 09:16 Transfer ordered to [facility]. Diagnosis is cp Gastrointestinal hemorrhage, unspecified; Anemia in chronic diseases classified elsewhere. Reason for transfer: Higher level of care. Accepting physician is DR Castellanos. Condition is Stable. Problem is an ongoing problem. Symptoms have improved. cp 12:03 09:22 08/31/2019 09:16 Transfer ordered to [facility]. Diagnosis is em Gastrointestinal hemorrhage, unspecified; Anemia in chronic diseases classified elsewhere; Weakness. Reason for transfer: Higher level of care. Accepting physician is DR Catsellanos. Condition is Stable. Problem is an ongoing problem. Symptoms have improved. cp
[2019-08-31] MEDS ORDERED: PANTOPRAZOLE INJ 80 MG in NA CHLORIDE 0.9% 250 ML IV SCH (09:30)
[2019-08-31] MEDS ORDERED: NA CHLORIDE 0.9% 250 ML ONE (09:38)
[2019-08-31 10:58] LABS: Anisocytosis 1+; Blood Morphology Comment NOTED (NOT SEEN); Hypochromasia 1+; Platelet Estimate ADEQ; White Blood Cell Scan OK
[2019-08-31 12:53] VITALS: BP 162/74; O2SAT 99
[2019-08-31 13:24] VITALS: TEMP 98.8
--- NOTE | 2019-08-31 17:45 | EKG ---
Test Date: 2019-08-31 Test Time: 07:00:21 [employer] Operator: JANE MEASUREMENT RESULTS: Intervals: Rate: 58 MO: 112 QRSD: 82 QT: 480 QTc: 471 [place]: P: MO: 112 QRS: 82 T: 95 INTERPRETIVE STATEMENTS: Sinus bradycardia Nonspecific T wave abnormality Prolonged QT Abnormal ECG Compared to ECG 08/11/2019 06:59:54 T-wave abnormality now present Sinus rhythm no longer present Short MO interval no longer present ST (T wave) deviation no longer present Electronically Signed On 08-31-19 17:44:42 CDT by Wero Sweeney
== END 2019-08-31 12:03 | disposition short-term general hospital (02) ==
LOC: ER 06:30
PROC: 30233N1 Transfusion of Nonautologous Red Blood Cells into Peripheral Vein, Percutaneous Approach (ICD-10-PCS; principal; 2019-08-31)
DX: D64.9 Anemia, unspecified (principal); R53.1 Weakness; I10 Essential (primary) hypertension; F17.210 Nicotine dependence, cigarettes, uncomplicated; Z88.6 Allergy status to analgesic agent
CPT/HCPCS: 36415; 71045; 80048; 80076; 80320; 83735; 83880; 84484; 85025; 85610; 85730; 86850; 86900; 86901; 93005; 96361; 96365; 96366; 99285; C9113; J7030; P9016